=== PATIENT | female | born 1985 | race Caucasian/White ===

== ENCOUNTER 2018-04-05 18:00 | Inpatient (IN) | payer OTHER, SELFPAY ==
[2018-04-05 18:16] VITALS: BMI 25.7
[2018-04-05 18:52] LABS: Hematocrit 42.5 % (37-47); Mean Corp Hgb Conc 35.3 g/gl (32-36); Mean Corpuscular Hgb 32.4 pg (27.0-32.0); Mean Corpuscular Volume 91.8 fL (81-99); Mean Platelet Vol. 10.6 fl (6.2-12.0); Platelet Count 296 K/mm3 (150-450); RBC Distribution Width CV 12.4 % (11.6-14.6); Red Blood Count 4.63 M/mm3 (4.2-5.4)
[2018-04-05 18:54] LABS: Scan Indicated on CBC? Y/N NO
[2018-04-05] MEDS: Nalbuphine 10 MG/ML Ampul IV ×3 (18:58→22:33)
[2018-04-05] MEDS: Lactated Ringers 1,000 ML 50 ML IV ×2 (18:59→22:57)
[2018-04-05] MEDS: Ondansetron 4 MG/2 ML Vial IV (19:29)
--- NOTE | 2018-04-05 21:11 | PCM.HP.OB ---
History Date of Admission: 04/05/18 Final LILI: 04/09/18 Gestational age: 39 Weeks and 4 Days History of this : This is a 32 year-old, G [], P [], at 39 weeks gestational age. 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 History of endoscopy Z98.890 Surgical History: Surgical History (Last Updated 04/05/18 @ 22:02 by Teetee Edmonds) H/O sinus surgery Z98.890 Allergies itraconazole Allergy (Verified 04/05/18 18:24) Swelling levofloxacin Allergy (Verified 04/05/18 18:25) Swelling Itching Sulfa (Sulfonamide Antibiotics) Allergy (Verified 04/05/18 18:25) Rash Home Medications: Home Medications Albuterol Inhaler [Ventolin Hfa (SP)] 1 - 2 puff INHALATION Q4H PRN PRN 04/05/18 Budesonide Aerosol [Pulmicort Aerosol] 0.5 mg INHALATION DAILY 04/05/18 Cholecalciferol (VIT D3) [Vitamin D] 1,000 unit PO DAILY 04/05/18 [place]-3 Fatty Acids [Fish Oil] 500 mg PO 04/05/18 Vits [Prenatabs FA] 1 tablet PO DAILY 04/05/18 Wellbutrin SR (150mg tablets) 300 mg PO QODAY 04/05/18 Smoking Status: Never smoker Heart Tracin with mod variability, accels TOCO Analysis: Q 2-4 minutes History Past Pregnancies: Past Pregnancies Delivery Date Name GA/Weeks Outcome Route Weight Gender Labor Length Anesthesia Delivery Location Provider FOB Labs: See [facility] H&P Physical Exam General: Alert, Oriented x3 Abdomen: Soft, Non Tender, Non-Distended, Gravid Cervix Dilation (cm): 5.5 Station: 0 Effacement (%): 80 Assessment/Plan This is a 32 year-old female @ 39&3 weeks gestational age. Admit to L&D Pain - s/p IV nubain, desires NCB GBS negative Churg-Gurdeep & asthma - anesthesia aware & have discussed patient with EFW less than 4500g, patient with adequate pelvis Will monitor closely during labor & in PP period
[2018-04-05 22:26] LABS: Fibrinogen 540 mg/dl (203-444); International Normalized Ratio 0.9; Partial Thromboplast Time 25.1 Seconds (24.1-36.2); Prothrombin Time (Protime)PT. 12.2 SECONDS (11.7-14.9)
[2018-04-05 22:29] LABS: ALB/GLOB Ratio 0.8 RATIO (0.9-2.4); AST(SGOT) 17 U/L (15-37); Alanine Aminotransfer ALT/SGPT 24 U/L (13-56); Albumin, Serum 2.9 g/dL (3.2-5.0); Alkaline Phosphatase 323 U/L (45-117); BUN 6 mg/dL (7-18); BUN/Creat Ratio 10.9 RATIO (10-20); Calcium,Total 8.9 mg/dL (8.5-10.1); Chloride 107 mmol/L (98-107); Creatinine, Serum 0.55 mg/dL (0.55-1.02); EST Glomerular Filtration Rate 136 mL/min (>60); Est Glom Filt Rate - Afr Amer 165 mL/min (>60); Estimated Creatinine Clearance 132.14 ml/min; Globulin 3.8 g/dL (2.2-4.2); Glucose 108 mg/dL (74-106); Potassium 3.9 mmol/L (3.5-5.1); Protein, Total 6.7 g/dL (6.4-8.2); Sodium Level 138 mmol/L (136-145)
[2018-04-05 22:30] LABS: Anion Gap 11 (5-15)
[2018-04-05] MEDS: Mag Hydrox/Al Hydrox/Simeth 30 ML UDC PO (22:32)
[2018-04-05] MEDS: proMETHazine 25 MG/ML Syringe IV (22:32)
[2018-04-06] VITALS (7 sets, daily range): BP systolic 105–124; BP diastolic 62–79; PULSE 64–90; RESP 16; TEMP 36–37.2; O2SAT 97–99
[2018-04-06] MEDS: Oxytocin 30 units/NS 500 ml 30 UNITS/500 ML IV.SOLN 334 UNITS IV (00:43)
[2018-04-06] MEDS: Acetaminophen 500 MG Tablet 1000 MG PO ×3 (01:10→19:55)
[2018-04-06] MEDS: oxyCODONE 5 MG Tablet PO ×5 (01:10→21:22)
[2018-04-06] MEDS: Oxytocin 30 units/NS 500 ml 30 UNITS/500 ML IV.SOLN 167 UNITS IV (01:13)
--- NOTE | 2018-04-06 01:26 | PCM.OB.VAG ---
Vaginal Delivery Maternal Presentation: Active Labor Amniotic Membrane Rupture Type: Artificial Amniotic Fluid Description: Clear Final LILI: 04/09/18 Gestational age: 39 Weeks and 4 Days Date of Procedure: 04/06/18 Pre-Operative Diagnosis: Labor Post-Operative Diagnosis: Labor Surgery/ Procedure Performed: Spontaneous Vaginal Delivery Type of Anesthesia: Epidural Description of Procedure: Patient prepped & draped when c/c/+3. She pushed to delivered head. Shoulders & body easily followed. placed on maternal abdomen where 3VC clamped & cut in delayed fashion. Placenta delivered with gentle traction. Good uterine tone obtained. Presentation: DOMINIC Placental Delivery Description: Expressed Placenta Disposition: [facility] Cord Vessel Description: 3 Vessels Cord Entanglement: Around neck x 1, loose Estimated Blood Loss: 400ml Infant A gender: Male (1 minute): 8 (5 minute): 9 Episiotomy Description: None Laceration: 2nd degree - perineal - repaired with 3-0 vicryl Medications given after delivery: IV Pitocin Complications: None
--- NOTE | 2018-04-06 08:22 | PCM.PN.OB ---
Subjective: She has some perineal pain & cramping. Denies CP/SOB. - Physical Exam General: Alert, Oriented x3 Abdomen: Soft, Non Tender, Non-Distended - ff mid & below umb Extremities: No Calf Tenderness Weight: 154 lb 15.759 oz Body Mass Index (BMI) 25.7 Intake and Output for Last 24 Hours 04/04/18 04/05/18 04/06/18 23:59 23:59 23:59 Intake Total 545 / 545 Balance 545 / 545 Laboratory Tests Past 24 Hrs 04/05/18 04/05/18 04/05/18 18:25 18:25 18:25 WBC 15.0 H RBC 4.63 Hgb 15.0 Hct 42.5 MCV 91.8 MCH 32.4 H MCHC 35.3 RDW 12.4 RDW Differential 41.0 Plt Count 296 MPV 10.6 PT INR APTT Fibrinogen Sodium Potassium Chloride Carbon Dioxide Anion Gap BUN Creatinine Estim Creat Clear Calc Est GFR (MDRD) Af Amer Est GFR (MDRD) Non-Af BUN/Creatinine Ratio Glucose Calcium Total Bilirubin AST ALT Alkaline Phosphatase Total Protein Albumin Globulin Albumin/Globulin Ratio Blood Type O POSITIVE Antibody Screen NEGATIVE Crossmatch See Detail 04/05/18 04/05/18 21:56 21:56 WBC RBC Hgb Hct MCV MCH MCHC RDW RDW Differential Plt Count MPV PT 12.2 INR 0.9 APTT 25.1 Fibrinogen 540 H Sodium 138 Potassium 3.9 Chloride 107 Carbon Dioxide 20.0 L Anion Gap 11 BUN 6 L Creatinine 0.55 Estim Creat Clear Calc 132.14 Est GFR (MDRD) Af Amer 165 Est GFR (MDRD) Non-Af 136 BUN/Creatinine Ratio 10.9 Glucose 108 H Calcium 8.9 Total Bilirubin 0.40 AST 17 ALT 24 Alkaline Phosphatase 323 H Total Protein 6.7 Albumin 2.9 L Globulin 3.8 Albumin/Globulin Ratio 0.8 L Blood Type Antibody Screen Crossmatch Medical Necessity - Tobacco Use Smoking Status: Never smoker Assessment/Plan PPD#0 Churg-santosh & asthma - continue close PP observation, vital signs Q2 hours today Pain - tylenol & oxycodone PRN Encouraged
[2018-04-06] MEDS: Senna/Docusate Sodium 1 Tablet PO (08:32)
[2018-04-06] MEDS: 0.9% Saline Lock 10 ML Syringe IV (19:03)
[2018-04-07] VITALS (7 sets, daily range): BP systolic 88–130; BP diastolic 55–78; PULSE 63–87; RESP 14–18; TEMP 36.2–36.8; O2SAT 97–100
[2018-04-07] MEDS: oxyCODONE 5 MG Tablet PO ×5 (02:38→21:50)
[2018-04-07] MEDS: Acetaminophen 500 MG Tablet 1000 MG PO (06:09)
--- NOTE | 2018-04-07 08:04 | PCM.PN.OB ---
Subjective: pt seen at bedside doing well. pt denies CP, SOB, dizziness. no difficulty breathing. pt reports mild lochia. breast feeding well. pt reports +voiding w/o difficulty. no other concerns at this time. - Physical Exam General: Alert, Oriented x3 Abdomen: Soft, Non Tender, Non-Distended, - - fundus firm Extremities: No Calf Tenderness Vital Signs Temp Pulse Resp BP Pulse Ox 98.3 F 70 18 130/59 H 97 04/07/18 06:00 04/07/18 06:00 04/07/18 06:00 04/07/18 06:00 04/07/18 06:00 Oxygen Delivery Method Room Air Weight: 70.3 kg Body Mass Index (BMI) 25.7 Intake and Output for Last 24 Hours 04/05/18 04/06/18 04/07/18 23:59 23:59 23:59 Intake Total 545 / 545 Balance 545 / 545 Medical Necessity - Tobacco Use Smoking Status: Never smoker Assessment/Plan PPD#1, doing well routine care pain mgmt will monitor until PPD#2 - then if continues to be stable will dc home Routine VS- dc pulse ox at night.
--- NOTE | 2018-04-07 08:07 | DCINST_ITS ---
Discharge Diet: No Restrictions Discharge Activity: Return to Normal Activity, May not drive while taking narcotic pain medications., May Shower May resume sexual activity in: 4-6 weeks Additional Activity Instructions:: Nothing in the vagina for 4-6 weeks. You may return to work/school in 6 weeks. Call your doctor if your incision/area has: Continuous Slow Oozing, Sudden Increased Bleeding, Increased Pain/ Swelling, Increased Redness, Foul Smelling Discharge Additional Instructions: If you experience any of the following, contact your healthcare provider. * Bleeding that soaks a pad every hour for 2 hours * Fever 100.4 or higher * Unrelieved incision or abdominal pain * Swelling, redness, discharge or bleeding from your incision or episiotomy site * Your incision begins to separate * Problems urinating (including inability to urinate or burning while urinating). * Visual changes * Severe headache * Flu-like symptoms * Pain or redness in one of both of your breasts * Pain, warmth, tenderness or swelling in your legs, especially the calf area * Frequent nausea and vomiting * Symptoms of depression or anxiety If you experience any of the following, call 911 or go to the nearest Emergency Room. * Chest pain * Problems breathing * Seizure activity * Partial or complete paralysis of a body part, slurred speech, weakness or drooping of the face, or a sudden inability to walk or hold your balance Allergies/Adverse Reactions: Allergies itraconazole Allergy (Verified 04/05/18 18:24) Swelling levofloxacin Allergy (Verified 04/05/18 18:25) Swelling Itching Sulfa (Sulfonamide Antibiotics) Allergy (Verified 04/05/18 18:25) Rash Medications to take at Discharge Albuterol Inhaler [Ventolin Hfa] 1 - 2 puff INHALATION Q4H PRN PRN 04/05/18 Budesonide Aerosol [Pulmicort Respules] 0.5 mg INHALATION DAILY 04/05/18 Cholecalciferol (VIT D3) [Vitamin D3] 1,000 unit PO DAILY 04/05/18 [place]-3 Fatty Acids [Fish Oil] 500 mg PO 04/05/18 Vits [Prenatabs FA ] 1 tablet PO DAILY 04/05/18 Acetaminophen [Tylenol Extra Strength] 500 mg PO Q4H PRN PRN #30 tablet 04/06/18 Dextran 70/He-Cell [Tears Naturale, Artificial Tears] 2 drop EACH EYE Q1H PRN PRN bottle 04/06/18 Oxycodone [Oxyir] 5 mg PO Q4H PRN PRN 5 Days #10 tablet 04/06/18 Senna/Docusate Sodium [Senokot-S] 1 - 2 tablet PO DAILY PRN PRN #30 tablet 04/06/18 buPROPion XL [Wellbutrin Xl] 300 mg PO QODAY tablet.xl 04/06/18 The following prescriptions were given: Acetaminophen [Tylenol Extra Strength] 500 mg PO Q4H PRN PRN #30 tablet PRN Reason: Pain Oxycodone [Oxyir] 5 mg PO Q4H PRN PRN 5 Days #10 tablet PRN Reason: Mod-Severe Pain (4-01/31) Senna/Docusate Sodium [Senokot-S] 1 - 2 tablet PO DAILY PRN PRN #30 tablet PRN Reason: Constipation When: Call to make an appointment with your doctor in 6 weeks. If you had elevated Blood Pressure or 4th degree laceration you will need to be seen in 2 weeks. Primary Care Physician: Ash Garrison DO [Primary Care Provider] - Test Results: Test results from this visit will be discussed in further detail at your follow- up appointment, if applicable.
[2018-04-07] MEDS: buPROPion (XL) 300 MG TABLET.XL PO (12:22)
[2018-04-08 02:05] VITALS: BP 104/57; PULSE 75; RESP 16; TEMP 36.8; O2SAT 98
[2018-04-08] MEDS: Acetaminophen 500 MG Tablet 1000 MG PO (08:52)
[2018-04-08 08:55] VITALS: BP 106/70; PULSE 82; RESP 12; TEMP 36.6; O2SAT 97
--- NOTE | 2018-04-08 09:19 | PCM.PN.OB ---
Subjective: pt seen at bedside, doing well. pt denies CP, SOB, dizziness. pt reports some vaginal pressure. Voiding w/o difficulty. lochia mild. breast feeding. - Physical Exam General: Alert, Oriented x3 Abdomen: Soft, Non Tender, Non-Distended, - - fundus firm Extremities: No Calf Tenderness Comment: perineum evalutated. sutures intact. No active bleeding- minimal swelling. Vital Signs Temp Pulse Resp BP Pulse Ox 98 F 82 12 106/70 97 04/08/18 08:55 04/08/18 08:55 04/08/18 08:55 04/08/18 08:55 04/08/18 08:55 Oxygen Delivery Method Room Air Weight: 70.3 kg Body Mass Index (BMI) 25.7 Intake and Output for Last 24 Hours 04/06/18 04/07/18 04/08/18 23:59 23:59 23:59 Intake Total 545 / 545 Balance 545 / 545 Medical Necessity - Tobacco Use Smoking Status: Never smoker Assessment/Plan PPD#2,doing well routine care pain mgmt dc home
[2018-04-08] MEDS: Senna/Docusate Sodium 1 Tablet PO (10:49)
[2018-04-08] MEDS: oxyCODONE 5 MG Tablet PO (10:50)
[2018-04-08] MEDS: buPROPion (XL) 300 MG TABLET.XL PO ×2 (10:50)
--- OUTSIDE RECORDS SUMMARY | 2018-05-22 14:51 | XMS RPT_ITS ---
:1985 Author Organization OHIP Care Team Providers Name Role Phone OMAR OROZCOE, PATRICIA Referring Unavailable RANDALL LOMELI (CNM) Attending Unavailable PEGGY MORRELL (SHIP ENGINEER) Attending Unavailable SHWETA GUERRA (CNM) Attending Unavailable LILIANA VINCENT Attending Unavailable RANDALL LOMELI (CNM) Attending Unavailable MAYRA ALCANTARA Attending Unavailable ASH GARRISON Attending Unavailable LILIANA VINCENT Attending Unavailable ELIDA DING Attending Unavailable MERLYN VINCENTA Referring Unavailable DOMINGUEZ FORTE, PATRICIA Referring Unavailable LILIANA VINCENT Attending Unavailable ILANA VU Attending Unavailable LILIANA VINCENT Attending Unavailable RANDALL LOMELI (CNM) Referring Unavailable RANDALL LOMELI (CNM) Attending Unavailable SHWETA GUERRA (CNM) Attending Unavailable DOMINGUEZ FORTE, PATRICIA Referring Unavailable MAYRA ALCANTARA Attending Unavailable RANDALL LOMELI (CNM) Referring Unavailable NELUKAS OCONNELLRE Attending Unavailable RANDALL LOMELI (CNM) Referring Unavailable ILANA VU Attending Unavailable ILANA VU Referring Unavailable DOMINGUEZ FORTE, PATRICIA Referring Unavailable SHWETA GUERRA (CNM) Attending Unavailable DOMINGUEZ FORTE, PATRICIA Referring Unavailable RANDALL LOMELI (CNM) Attending Unavailable YOVANNY ESCAMILLA MAYRA Referring Unavailable SYLVAIN PASTRANA Attending Unavailable YOVANNY ESCAMILLA MAYRA Referring Unavailable DOMINGUEZ FORTE, PATRICIA Referring Unavailable LUKAS ALCANTARARE Attending Unavailable MAYRA ALCANTARA Attending Unavailable SRIKANTH, LANDEN L Referring Unavailable ILANA VU H Attending Unavailable ANGE VUN H Referring Unavailable SRIKANTH, LANDEN L Referring Unavailable DOMINGUEZ FORTE, PATRICIA Referring Unavailable SRIKANTH, LANDEN L Referring Unavailable SRIKANTH, LANDEN L Referring Unavailable SRIKANTH, LANDEN L Referring Unavailable DOMINGUEZ FORTE, PATRICIA Referring Unavailable DOMINGUEZ PAME, PATRICIA Attending Unavailable Ash Garrison Primary Care Unavailable Nirmal Lopez Admitting Unavailable Nirmal Lopez Attending Unavailable Nirmal Lopez Referring Unavailable PROBLEMS PROBLEMS DATE TYPE CONDITION / CODE ATTENDING STATUS SOURCE 04/10/2018 Active Unknown / PEGGY MORRELL Active [facility] UNK(Unknown) (SHIP ENGINEER) [facility] [place] Repository 04/09/2018 Unknown O90.89 - Other Nirmal Lopez Active [place] complications of Community the puerperium, not Hospital elsewhere Repository classified / O90.89(ICD-10) 02/10/2014 Active 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 [facility] [place] (churg-santosh) / Repository M30.1(ICD-10) 02/22/2018 Active Encounter for NA Active [facility] examination for [facility] normal comparison Repository and control in clinical research program / Z00.6(ICD-10) 01/15/2018 Active 28 weeks gestation NA Active [facility] of / [place] Z3A.28(ICD-10) Repository 10/23/2017 Active Encounter for NA Active [facility] screening [facility] [place] for nuchal Repository translucency / Z36.82(ICD-10) 09/25/2017 Active Encounter for NA Active [facility] supervision of [facility] [place] other normal Repository , first trimester / Z34.81(ICD-10) 09/25/2017 Active 12 weeks gestation NA Active [facility] of / [place] Z3A.12(ICD-10) Repository 09/25/2017 Active Encounter for NA Active [facility] [place] screening, Repository unspecified / Z36.9(ICD-10) 07/29/2017 Active Supervision of Active [facility] with [facility] [place] other poor Repository reproductive or obstetric history, first trimester / O09.291(ICD-10) 07/26/2017 Active Supervision of high NA Active [facility] risk , [facility] [place] unspecified, first Repository trimester / O09.91(ICD-10) 06/29/2017 Active Threatened NA Active [facility] / O20.0(ICD-10) [facility] Repository PROCEDURES PROCEDURES No Procedure Records FoundRESULTS RESULTS PROGRESS Observed: 05/01/2018 Status: COMPLETED Source: [place] 3:38 PM [facility] [place] REPOSITORY HNO ID: [id number] Author: Randall Lomeli Service: (none) Author Type: Cloth Winder Type: Progress Notes Filed: 05/01/2018 6:22 PM Note Text: Denis Quan is a 32 year old female who presents for problem visit for evaluation of bilateral breast pain for 4 days. HPI: Patient presents with and 3.5 week old son today. Reports some worsening nipple pain with latch. Patient reports that baby is a slow feeder and has been cluster feeding on and off over the last week. Initial pain with latch, baby gums nipples a lot and comfort sucks. Nipples unusually pink and she reports she has been battling with pain since end of last week. No fevers. No erythema of breast noted, breasts also are not warm to touch. No abnormal nipple discharge, or bleeding from nipples. Cracks on nipples noted last week,but have cleared up overall. Had clogged dutct on Rt. Breast but this has since resolved since yesterday. Started some pumping of breastmilk a few days ago, to get a break. Did a trial of breast sutherland - minimal improvement on nipple pain. Using Lanolin; was prescribed APNO but hasn't used very much since baby is at the breast constantly. They also recently introduced a pacifier to help soothe baby's comfort sucking. Using DuoGels in between feedings and Haka pump. Patient does report some pain with letdown, reports sensitivity with change in temperature. No s/s of thrush noted in ; no recent diaper rash noted. PAST MEDICAL HISTORY Diagnosis Date - Asthma - Churg-Santosh syndrome (HCC) 2005 - Dysmenorrhea primary ocp helps - fracture 5 years old right arm - HSDD - Hypercholesterolemia 10/17/2012 - Other and unspecified hyperlipidemia LDL 138 - Personal history of unspecified urinary disorder history of frequent UTI, last one 2011 - Pulmonary eosinophilia (HCC) - recurrent UTI no issue since 2011 - Unspecified asthma(493.90) - Venereal warts 2007 - Vitamin D deficiency 2010 29 - weight gain PAST SURGICAL HISTORY Procedure Laterality Date - ENDOSCOPY PROC 08/03/2016 - SINUS SURGERY PROC UNLISTED 2006 FAMILY HISTORY Problem Relation Age of Onset - Thyroid Mother Hyperthyroidism - other (hypercholesterolemia) Father - Diabetes Maternal Grandfather - Ischemic Heart Disease Maternal Grandfather - Hypertension Maternal Grandfather - other (Tuberculosis) Maternal Grandfather - Hypertension Brother - Hyperlipidemia Brother - Hypertension Brother - Diabetes Maternal Grandmother - other (Dementia) Paternal Grandmother - Aneurysm Paternal Grandfather brain Social History Marital status: Unknown Spouse name: Jamie Years of education: 18 Number of children: 0 Occupational History Occupation Employer Comment HELP DESK MANAGER [employer] Social History Main Topics Smoking status: Never Smoker Smokeless tobacco: Never Used Alcohol use: Yes 4.5 oz/week Glasses of Wine (5oz): 3 per week Comment: not while Drug use: No Comment: . Sexual activity: Yes Partners with: Male control/protection: Inserts Comment: nuvaring Other Topics Concern No BLOOD TRANSFUSIONS No OCCUPATIONAL EXPOSURE Yes Comment:Chemical exposure ([employer]) summer - weed killer Social History Narrative , no children Current Outpatient Prescriptions: mupirocin (ALBERTA RAYA) Apply 1 Each to affected area as directed. buPROPion XL (WELLBUTRIN XL) 300 mg 24 hr tablet Take 1 tablet by mouth once daily. fluticasone-salmeterol HFA (ADVAIR) 230-21 mcg/actuation inhaler Inhale 2 Puffs as instructed twice daily. budesonide (PULMICORT) 0.5 mg/2 mL nebulizer solution use 2 mL twice daily. Use 1ml in each nostril twice daily as directed. Eezpljbf-Zg-Lku-Fe-FA ( VITAMIN) tab Take 1 tablet by mouth. lactobacillus combo no.6 (PROBIOTIC COMPLEX ORAL) Take by mouth. albuterol HFA (PROAIR HFA) 90 mcg/actuation inhaler Inhale 2 Puffs as instructed every 6 hours as needed for Wheezing/Shortness of Breath. [place]-3 Fatty Acids-Vitamin E (FISH OIL) 1,000 mg cap Take 1 capsule by mouth twice daily. B-COMPLEX WITH VITAMIN C TAB Take one(1) tablet daily. No current facility-administered medications for this visit. Allergies As of Date: 05/01/2018 Allergen Noted Reaction CAT HAIR EXTRACT 12/03/2004 DUST MITES 12/03/2004 ITRACONAZOLE 12/03/2004 Itching LEVOFLOXACIN 12/03/2004 Rash MOLD 12/03/2004 SULFA (SULFONAMIDE ANTIBIOTICS) 09/28/2005 Rash Fully Assessed 04/10/2018 REVIEW OF SYSTEMS Abdomen: No bloating, early satiety, indigestion, or increased flatulence. No abdominal pain, nausea, vomiting, diarrhea, or constipation. Bladder: No dysuria, gross hematuria, urinary frequency, urinary urgency, or incontinence. Breast: No breast lumps, nipple d/c, overlying skin changes, redness or skin retraction and SEE HPI. Expanded ROS: N/A Allergies and current medication updated:Yes EXAM: BP 104/78 Wt 140 lb 12.8 oz (63.9kg) GENERAL: pleasant, female in no apparent distress HEENT: Normocephalic, atraumatic, mucus membranes moist and no lesions NECK: Supple, full range of motion, no adenopathy and thyroid normal DERMATOLOGY: Normal, without lesions, non-icteric and non-hirsute BREAST: soft, non-tender, symmetric, no dominant mass, normal nipple-areolar complex, no lymphadenopathy and no nipple discharge CHEST: Normal inspiratory effort ABDOMEN: soft, non-tender and no masses PELVIC: deferred BIMANUAL: deferred NEURO: alert and oriented x3,exam grossly non-focal EXTREMITIES: normal ASSESSMENT AND PLAN: Encounter Diagnosis ICD-10-CM 1. nipple pain O92.29 2. problem Z91.89 1) Encourage use APNO - discussed advantages of APNO over Lanolin cream 2) Warning signs for mastitis, ductal yeast and clogged ducts discussed 3) Reassurance provided regarding ensuring deep latch, not allowing for prolonged nursing session beyond 30 minutes and to use pacifier for comfort, non-nutritive sucking as baby's elimination patterns are normal and is gaining weight normally. 4) Consider evaluation for Raynaud's phenomenon of nipple if pain persists - patient to keep a journal regarding exacerbating and alleviating factors. Randall Lomeli APRN.EVA CNOV Observed: 05/01/2018 Status: COMPLETED Source: [place] 3:30 PM [facility] REPOSITORY Office Visit (WOOB) DENIS QUAN ([id number]) 1985 F Date Time Provider Department 05/01/18 3:30 PM RANDALL LOMELI ([facility]) [facility]OO[facility] During your visit today, we recorded the following information about you: Blood pressure Weight 104/78 63.9 kg Randall Lomeli APRN.CNM 05/01/2018 6:22 PM Signed Denis Quan is a 32 year old female who presents for problem visit for evaluation of bilateral breast pain for 4 days. HPI: Patient presents with and 3.5 week old son today. Reports some worsening nipple pain with latch. Patient reports that baby is a slow feeder and has been cluster feeding on and off over the last week. Initial pain with latch, baby gums nipples a lot and comfort sucks. Nipples unusually pink and she reports she has been battling with pain since end of last week. No fevers. No erythema of breast noted, breasts also are not warm to touch. No abnormal nipple discharge, or bleeding from nipples. Cracks on nipples noted last week,but have cleared up overall. Had clogged dutct on Rt. Breast but this has since resolved since yesterday. Started some pumping of breastmilk a few days ago, to get a break. Did a trial of breast sutherland - minimal improvement on nipple pain. Using Lanolin; was prescribed APNO but hasn't used very much since baby is at the breast constantly. They also recently introduced a pacifier to help soothe baby's comfort sucking. Using DuoGels in between feedings and Haka pump. Patient does report some pain with letdown, reports sensitivity with change in temperature. No s/s of thrush noted in infant; no recent diaper rash noted. PAST MEDICAL HISTORY Diagnosis Date - Asthma - Churg-Santosh syndrome (HCC) 2005 - Dysmenorrhea primary ocp helps - fracture 5 years old right arm - HSDD - Hypercholesterolemia 10/17/2012 - Other and unspecified hyperlipidemia LDL 138 - Personal history of unspecified urinary disorder history of frequent UTI, last one 2011 - Pulmonary eosinophilia (HCC) - recurrent UTI no issue since 2011 - Unspecified asthma(493.90) - Venereal warts 2007 - Vitamin D deficiency 2010 29 - weight gain PAST SURGICAL HISTORY Procedure Laterality Date - ENDOSCOPY PROC 08/03/2016 - SINUS SURGERY PROC UNLISTED 2006 FAMILY HISTORY Problem Relation Age of Onset - Thyroid Mother Hyperthyroidism - other (hypercholesterolemia) Father - Diabetes Maternal Grandfather - Ischemic Heart Disease Maternal Grandfather - Hypertension Maternal Grandfather - other (Tuberculosis) Maternal Grandfather - Hypertension Brother - Hyperlipidemia Brother - Hypertension Brother - Diabetes Maternal Grandmother - other (Dementia) Paternal Grandmother - Aneurysm Paternal Grandfather brain Social History Marital status: Unknown Spouse name: Jamie Years of education: 18 Number of children: 0 Occupational History Occupation Employer Comment HELP DESK MANAGER [employer] Social History Main Topics Smoking status: Never Smoker Smokeless tobacco: Never Used Alcohol use: Yes 4.5 oz/week Glasses of Wine (5oz): 3 per week Comment: not while Drug use: No Comment: . Sexual activity: Yes Partners with: Male control/protection: Inserts Comment: nuvaring Other Topics Concern No BLOOD TRANSFUSIONS No OCCUPATIONAL EXPOSURE Yes Comment:Chemical exposure ([employer]) summer - weed killer Social History Narrative , no children Current Outpatient Prescriptions: mupirocin (ALBERTA RAYA) Apply 1 Each to affected area as directed. buPROPion XL (WELLBUTRIN XL) 300 mg 24 hr tablet Take 1 tablet by mouth once daily. fluticasone-salmeterol HFA (ADVAIR) 230-21 mcg/actuation inhaler Inhale 2 Puffs as instructed twice daily. budesonide (PULMICORT) 0.5 mg/2 mL nebulizer solution use 2 mL twice daily. Use 1ml in each nostril twice daily as directed. Uzivsgeh-Yt-Vwr-Fe-FA ( VITAMIN) tab Take 1 tablet by mouth. lactobacillus combo no.6 (PROBIOTIC COMPLEX ORAL) Take by mouth. albuterol HFA (PROAIR HFA) 90 mcg/actuation inhaler Inhale 2 Puffs as instructed every 6 hours as needed for Wheezing/Shortness of Breath. [place]-3 Fatty Acids-Vitamin E (FISH OIL) 1,000 mg cap Take 1 capsule by mouth twice daily. B-COMPLEX WITH VITAMIN C TAB Take one(1) tablet daily. No current facility-administered medications for this visit. Allergies As of Date: 05/01/2018 Allergen Noted Reaction CAT HAIR EXTRACT 12/03/2004 DUST MITES 12/03/2004 ITRACONAZOLE 12/03/2004 Itching LEVOFLOXACIN 12/03/2004 Rash MOLD 12/03/2004 SULFA (SULFONAMIDE ANTIBIOTICS) 09/28/2005 Rash Fully Assessed 04/10/2018 REVIEW OF SYSTEMS Abdomen: No bloating, early satiety, indigestion, or increased flatulence. No abdominal pain, nausea, vomiting, diarrhea, or constipation. Bladder: No dysuria, gross hematuria, urinary frequency, urinary urgency, or incontinence. Breast: No breast lumps, nipple d/c, overlying skin changes, redness or skin retraction and SEE HPI. Expanded ROS: N/A Allergies and current medication updated:Yes EXAM: BP 104/78 Wt 140 lb 12.8 oz (63.9kg) GENERAL: pleasant, female in no apparent distress HEENT: Normocephalic, atraumatic, mucus membranes moist and no lesions NECK: Supple, full range of motion, no adenopathy and thyroid normal DERMATOLOGY: Normal, without lesions, non-icteric and non-hirsute BREAST: soft, non-tender, symmetric, no dominant mass, normal nipple-areolar complex, no lymphadenopathy and no nipple discharge CHEST: Normal inspiratory effort ABDOMEN: soft, non-tender and no masses PELVIC: deferred BIMANUAL: deferred NEURO: alert and oriented x3,exam grossly non-focal EXTREMITIES: normal ASSESSMENT AND PLAN: Encounter Diagnosis ICD-10-CM 1. nipple pain O92.29 2. problem Z91.89 1) Encourage use APNO - discussed advantages of APNO over Lanolin cream 2) Warning signs for mastitis, ductal yeast and clogged ducts discussed 3) Reassurance provided regarding ensuring deep latch, not allowing for prolonged nursing session beyond 30 minutes and to use pacifier for comfort, non-nutritive sucking as baby's elimination patterns are normal and infant is gaining weight normally. 4) Consider evaluation for Raynaud's phenomenon of nipple if pain persists - patient to keep a journal regarding exacerbating and alleviating factors. GAIL Gallegos APRN.CNM 05/01/2018 4:03 PM Signed [facility] for nipple pain. Referring Provider: SELF [[id number]] Allergies As of Date: 05/01/2018 Noted Allergy Reaction CAT HAIR EXTRACT 12/03/2004 DUST MITES 12/03/2004 ITRACONAZOLE 12/03/2004 9 - Itching LEVOFLOXACIN 12/03/2004 2 - Rash MOLD 12/03/2004 SULFA (SULFONAMIDE ANTIBIOTICS) 09/28/2005 2 - Rash Date Reviewed: 05/01/2018 Reviewed by: Aniyah Yates) Colin - Fully Assessed Reason for Visit: Breast Problem [16] Primary Visit Diagnosis: nipple pain [O92.29] Other Visit Diagnosis: problem [Z91.89] Prescriptions as of 05/01/2018 Sig: ALBERTA RAYA NIPPLE OINTMENT Apply 1 Each to affected area* BUPROPION XL 300 MG 24 HR TAB Take 1 tablet by mouth once d* BUDESONIDE 0.5 MG/2 ML SUSPEN* use 2 mL twice daily. Use 1ml* VITAMIN,CALCIUM,MINE* Take 1 tablet by mouth. PROBIOTIC COMPLEX ORAL Take by mouth. ALBUTEROL SULFATE HFA 90 MCG/* Inhale 2 Puffs as instructed * [place]-3 FATTY ACIDS-VITAMIN E* Take 1 capsule by mouth twice* B-COMPLEX WITH VITAMIN C TABL* Take one(1) tablet daily. FLUTICASONE-SALMETEROL 230 MC* Inhale 2 Puffs as instructed * Problem List As Of Date 05/01/2018 Noted Resolved Asthma [J45.909] More... 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 Sinusitis, chronic [J32.9] INVALID FOR* PEANUT CLEANER STEROIDS [VWO3611] INVALID FOR* Urinary tract infection, site not specified [N3*INVALID FOR*10/31/2012 Churg-Santosh syndrome (HCC) [M30.1] INVALID FOR* More... UTI (lower urinary tract infection) [N39.0] INVALID FOR* Chest pain [R07.9] INVALID FOR*01/20/2014 Palpitations [R00.2] INVALID FOR*06/21/2017 Family history of hyperlipidemia [Z83.438] INVALID FOR*06/21/2017 Hypercholesterolemia [E78.00] INVALID FOR* Headache [R51] INVALID FOR* More... Neutropenic fever [D70.9, R50.81] INVALID FOR* More... Mouth ulcers [K12.1] INVALID FOR*06/21/2017 More... Thrombocytosis [D47.3] INVALID FOR*07/01/2013 More... Nausea [R11.0] INVALID FOR*06/21/2017 More... Oral thrush [B37.0] INVALID FOR* More... MILES (acute kidney injury) [N17.9] INVALID FOR* More... DISPOSITION AND FOLLOW-UP [V999.01] INVALID FOR*06/21/2017 More... Dyspareunia [BAC9130] INVALID FOR*06/21/2017 Vaginismus [N94.2] INVALID FOR* Vitamin D deficiency [E55.9] Other and unspecified hyperlipidemia [E78.5] HSDD [F52.0] Dysmenorrhea [N94.6] 06/21/2017 More... Muscle spasm [M62.838] INVALID FOR*06/21/2017 Eosinophilia [D72.1] INVALID FOR* Epigastric pain [R10.13] INVALID FOR*06/21/2017 Abnormal weight loss [R63.4] INVALID FOR* Poor appetite [R63.0] INVALID FOR* History of depression [Z86.59] INVALID FOR* More... History of abdominal pain [Z87.898] INVALID FOR* More... History of recurrent UTI (urinary tract infecti*INVALID FOR* More... Other instructions from your clinician: [facility] for nipple pain. Disposition: Return if symptoms worsen or fail to improve. Follow-up and Disposition History Recorded Encounter Status:Closed by RANDALL LOMELI CNM on 05/01/18 PROGRESS Observed: 04/10/2018 Status: COMPLETED Source: [place] 1:34 PM [facility] [place] REPOSITORY HNO ID: [id number] Author: Peggy Maier) Francisca Service: (none) Author Type: Nurse Practitioner Type: Progress Notes Filed: 04/10/2018 2:04 PM Note Text: SUBJECTIVE: 32 year old female presents for 1 week exam. Outcome: . Date delivered: 04/06/18. Delivering M.D.: Nirmal Lopez MD. Delivered in what hospital? [facility] Lochia: Rubra, Normal depression/mood: mild Breast/bottle: Breast feeding. If , do you have any drainage or redness at incision site? N/A Do you have a fever? No Additional Issues: none Pam Healy LPN OBJECTIVE: Abdomen: soft, non-tender, no masses, no hepatosplenomegaly and no lymphadenopathy Incision: None PLAN: RTO for 6 week check, Prescription given for nipple cream Taking Wellbutrin Has appt on I have reviewed and updated past medical and surgical history, medications and allergies. Peggy Morrell, CONSTRUCTION SAFETY CONSULTANT.SHIP ENGINEER DISCHARGE INSTRUCTION Observed: 04/07/2018 Status: F Source: [place] 8:07 AM [facility] REPOSITORY [facility] Medical Records Department [address] [place] [address] Instructions for Home/Discharge Instructions 04/07/18 0807 MR#: [id number] Acct: [id number] Name: DENIS QUAN Rep #: [id number] : 1985 32 From: Mayra Escamilla MD PCP: Ash Rodriguez DO Status: ADM IN Discharge Diet: No Restrictions Discharge Activity: Return to Normal Activity, May not drive while taking narcotic pain medications., May Shower May resume sexual activity in: 4-6 weeks Additional Activity Instructions:: Nothing in the vagina for 4-6 weeks. You may return to work/school in 6 weeks. Call your doctor if your incision/area has: Continuous Slow Oozing, Sudden Increased Bleeding, Increased Pain/ Swelling, Increased Redness, Foul Smelling Discharge Additional Instructions: If you experience any of the following, contact your healthcare provider. * Bleeding that soaks a pad every hour for 2 hours * Fever 100.4 or higher * Unrelieved incision or abdominal pain * Swelling, redness, discharge or bleeding from your incision or episiotomy site * Your incision begins to separate * Problems urinating (including inability to urinate or burning while urinating). * Visual changes * Severe headache * Flu-like symptoms * Pain or redness in one of both of your breasts * Pain, warmth, tenderness or swelling in your legs, especially the calf area * Frequent nausea and vomiting * Symptoms of depression or anxiety If you experience any of the following, call 911 or go to the nearest Emergency Room. * Chest pain * Problems breathing * Seizure activity * Partial or complete paralysis of a body part, slurred speech, weakness or drooping of the face, or a sudden inability to walk or hold your balance Allergies/Adverse Reactions: Allergies itraconazole Allergy (Verified 04/05/18 18:24) Swelling levofloxacin Allergy (Verified 04/05/18 18:25) Swelling Itching Sulfa (Sulfonamide Antibiotics) Allergy (Verified 04/05/18 18:25) Rash Medications to take at Discharge Albuterol Inhaler [Ventolin Hfa] 1 - 2 puff INHALATION Q4H PRN PRN 04/05/18 Budesonide Aerosol [Pulmicort Respules] 0.5 mg INHALATION DAILY 04/05/18 Cholecalciferol (VIT D3) [Vitamin D3] 1,000 unit PO DAILY 04/05/18 [place]-3 Fatty Acids [Fish Oil] 500 mg PO 04/05/18 Vits [Prenatabs FA ] 1 tablet PO DAILY 04/05/18 Acetaminophen [Tylenol Extra Strength] 500 mg PO Q4H PRN PRN #30 tablet 04/06/18 Dextran 70/He-Cell [Tears Naturale, Artificial Tears] 2 drop EACH EYE Q1H PRN PRN bottle 04/06/18 Oxycodone [Oxyir] 5 mg PO Q4H PRN PRN 5 Days #10 tablet 04/06/18 Senna/Docusate Sodium [Senokot-S] 1 - 2 tablet PO DAILY PRN PRN #30 tablet 04/06/18 buPROPion XL [Wellbutrin Xl] 300 mg PO QODAY tablet.xl 04/06/18 The following prescriptions were given: Acetaminophen [Tylenol Extra Strength] 500 mg PO Q4H PRN PRN #30 tablet PRN Reason: Pain Oxycodone [Oxyir] 5 mg PO Q4H PRN PRN 5 Days #10 tablet PRN Reason: Mod-Severe Pain (4-10) Senna/Docusate Sodium [Senokot-S] 1 - 2 tablet PO DAILY PRN PRN #30 tablet PRN Reason: Constipation When: Call to make an appointment with your doctor in 6 weeks. If you had elevated Blood Pressure or 4th degree laceration you will need to be seen in 2 weeks. Primary Care Physician: Ash Garrison DO [Primary Care Provider] - Test Results: Test results from this visit will be discussed in further detail at your follow-up appointment, if applicable. 04/07/18 0807 <Electronically signed by Mayra Escamilla MD> Date Mayra Gay MD CC: Ash Rodriguez DO PROGRESS Observed: 04/06/2018 Status: COMPLETED Source: [place] 2:26 PM [facility] [place] [facility] ID: [id number] Author: Pam Healy LPN Service: (none) Author Type: (none) Type: Progress Notes Filed: 04/06/2018 2:27 PM Note Text: Pt delivered via at [facility] on 04/05/[address] Lopez. See OB Outcome note. Pam Healy LPN OPERATIVE REPORT Observed: 04/06/2018 Status: F Source: [place] 1:30 AM [facility] REPOSITORY [facility] Medical Records Department [address] [place] [address] Operative Report 04/06/18 0126 MR#: [id number] Acct: [id number] Name: KADEEMDENIS Deon Rep #: [id number] : 1985 32 From: Nirmal Lopez PCP: Ash Rodriguez DO Status: ADM IN Y Location: [id number] Vaginal Delivery Maternal Presentation: Active Labor Amniotic Membrane Rupture Type: Artificial Amniotic Fluid Description: Clear Final LILI: 04/09/18 Gestational age: 39 Weeks and 4 Days Date of Procedure: 04/06/18 Pre-Operative Diagnosis: Labor Post-Operative Diagnosis: Labor Surgery/ Procedure Performed: Spontaneous Vaginal Delivery Type of Anesthesia: Epidural Description of Procedure: Patient prepped AND draped when c/c/+3. She pushed to delivered head. Shoulders AND body easily followed. Infant placed on maternal abdomen where 3VC clamped AND cut in delayed fashion. Placenta delivered with gentle traction. Good uterine tone obtained. Presentation: DOMINIC Placental Delivery Description: Expressed Placenta Disposition: [facility] Cord Vessel Description: 3 Vessels Cord Entanglement: Around neck x 1, loose Estimated Blood Loss: 400ml Infant A gender: Male (1 minute): 8 (5 minute): 9 Episiotomy Description: None Laceration: 2nd degree - perineal - repaired with 3-0 vicryl Medications given after delivery: IV Pitocin Complications: None 04/06/18 0130 <Electronically signed by Nirmal Lopez > Date Nirmal Lopez CC: Ash Rodriguez DO; Nirmal Lopez Signed HISTORY AND PHYSICAL Observed: 04/06/2018 Status: F Source: [place] EXAM 1:25 AM [facility] REPOSITORY [facility] Medical Records Department [address] [place] [address] History and Physical 04/05/182110 MR#: [id number] Acct: [id number] Name: DENIS QUAN Rep #: [id number] : 1985 32 From: Nirmal Lopez PCP: Ash Rodriguez DO Status: ADM IN Location: DJ341-2 History Date of Admission: 04/05/18 Final LILI: 04/09/18 Gestational age: 39 Weeks and 4 Days History of this : This is a 32 year-old, G [], P [], at 39 weeks gestational age. 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 History of endoscopy Z98.890 Surgical History: Surgical History (Last Updated 04/05/18 @ 22:02 by Nirmal Lopez) H/O sinus surgery Z98.890 Allergies itraconazole Allergy (Verified 04/05/18 18:24) Swelling levofloxacin Allergy (Verified 04/05/18 18:25) Swelling Itching Sulfa (Sulfonamide Antibiotics) Allergy (Verified 04/05/18 18:25) Rash Home Medications: Home Medications Albuterol Inhaler [Ventolin Hfa (SP)] 1 - 2 puff INHALATION Q4H PRN PRN 04/05/18 Budesonide Aerosol [Pulmicort Aerosol] 0.5 mg INHALATION DAILY 04/05/18 Cholecalciferol (VIT D3) [Vitamin D] 1,000 unit PO DAILY 04/05/18 [place]-3 Fatty Acids [Fish Oil] 500 mg PO 04/05/18 Vits [Prenatabs FA] 1 tablet PO DAILY 04/05/18 Wellbutrin SR (150mg tablets) 300 mg PO QODAY 04/05/18 Smoking Status: Never smoker Heart Tracin with mod variability, accels TOCO Analysis: Q 2-4 minutes History Past Pregnancies: Past Pregnancies Delivery Name GA/Weeks Outcome Route WeiInfant GeLabor LenAnesthesiDelivery Provider FOB Date t [facility] a Location Labs: See [facility] H AND P Physical Exam General: Alert, Oriented x3 Abdomen: Soft, Non Tender, Non-Distended, Gravid Cervix Dilation (cm): 5.5 Station: 0 Effacement (%): 80 Assessment/Plan This is a 32 year-old female @ 39 AND 3 weeks gestational age. Admit to L AND D Pain - s/p IV nubain, desires NCB GBS negative Churg-Santosh AND asthma - anesthesia aware AND have discussed patient with Dr.DeHorta REILLY less than 4500g, patient with adequate pelvis Will monitor closely during labor AND in PP period 04/06/18 0125 <Electronically signed by Nirmal Lopez > Date Nirmal Lopez Cosigner Signature: Date (if applicable) CC: Ash Rodriguez DO; Nirmal Lopez Signed HOSP Observed: 04/06/2018 Status: COMPLETED Source: [place] 12:00 AM [facility] REPOSITORY Patient Update (WOOB) DENIS QUAN ([id number]) 1985 F Date Time Provider Department 04/06/18 NIRMAL LOPEZ During your visit today, we recorded the following information about you: Pam Healy LPN 04/06/2018 2:27 PM Signed Pt delivered via at [facility] on 04/05/[address] Lopez. See OB Outcome note. Pam Healy LPN Allergies As of Date: 04/06/2018 Noted Allergy Reaction CAT HAIR EXTRACT 12/03/2004 DUST MITES 12/03/2004 ITRACONAZOLE 12/03/2004 9 - Itching LEVOFLOXACIN 12/03/2004 2 - Rash MOLD 12/03/2004 SULFA (SULFONAMIDE ANTIBIOTICS) 09/28/2005 2 - Rash Date Reviewed: 04/02/2018 Reviewed by: [facility] Hospital[facility] Guerra - Fully Assessed Prescriptions as of 04/06/2018 Sig: ALBUTEROL SULFATE HFA 90 MCG/* Inhale 2 Puffs as instructed * B-COMPLEX WITH VITAMIN C TABL* Take one(1) tablet daily. BUDESONIDE 0.5 MG/2 ML SUSPEN* use 2 mL twice daily. Use 1ml* BUPROPION XL 300 MG 24 HR TAB Take 1 tablet by mouth once d* FLUTICASONE-SALMETEROL 230 MC* Inhale 2 Puffs as instructed * PROBIOTIC COMPLEX ORAL Take by mouth. OMEGA-3 FATTY ACIDS-VITAMIN E* Take 1 capsule by mouth twice* VITAMIN,CALCIUM,MINE* Take 1 tablet by mouth. Problem List As Of Date 04/06/2018 Noted Resolved Asthma [J45.909] More... 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 Sinusitis, chronic [J32.9] INVALID FOR* PEANUT CLEANER STEROIDS [AXS8325] INVALID FOR* Urinary tract infection, site not specified [N3*INVALID FOR*10/31/2012 Churg-Santosh syndrome (HCC) [M30.1] INVALID FOR* More... UTI (lower urinary tract infection) [N39.0] INVALID FOR* Chest pain [R07.9] INVALID FOR*01/20/2014 Palpitations [R00.2] INVALID FOR*06/21/2017 Family history of hyperlipidemia [Z83.438] INVALID FOR*06/21/2017 Hypercholesterolemia [E78.00] INVALID FOR* Headache [R51] INVALID FOR* More... Neutropenic fever [D70.9, R50.81] INVALID FOR* More... Mouth ulcers [K12.1] INVALID FOR*06/21/2017 More... Thrombocytosis [D47.3] INVALID FOR*07/01/2013 More... Nausea [R11.0] INVALID FOR*06/21/2017 More... Oral thrush [B37.0] INVALID FOR* More... MILES (acute kidney injury) [N17.9] INVALID FOR* More... DISPOSITION AND FOLLOW-UP [V999.01] INVALID FOR*06/21/2017 More... Dyspareunia [PLD6867] INVALID FOR*06/21/2017 Vaginismus [N94.2] INVALID FOR* Vitamin D deficiency [E55.9] Other and unspecified hyperlipidemia [E78.5] HSDD [F52.0] Dysmenorrhea [N94.6] 06/21/2017 More... Muscle spasm [M62.838] INVALID FOR*06/21/2017 Eosinophilia [D72.1] INVALID FOR* Epigastric pain [R10.13] INVALID FOR*06/21/2017 Abnormal weight loss [R63.4] INVALID FOR* Poor appetite [R63.0] INVALID FOR* History of depression [Z86.59] INVALID FOR* More... History of abdominal pain [Z87.898] INVALID FOR* More... History of recurrent UTI (urinary tract infecti*INVALID FOR* More... Encounter Status:Closed by PAM HEALY LPN on 04/06/18 PROTHROMBIN TIME W/INR Collected: 04/05/2018 Status: F Source: [place] 9:56 PM [facility] REPOSITORY TYPE CODE TESTS RESULT OUT OF RANGE REFERENCE UNITS LAB L300.4150 11.7-14.9 SECONDS Normal PROTIME 12.2 LAB L300.4200 Normal INR 0.9 Performed By: #### L300.3900, L300.4310, L300.4700 #### [facility] [address] [place], [place], [id number] PARTIAL THROMBOPLAST Collected: 04/05/2018 Status: F Source: [place] TIME 9:56 PM [facility] REPOSITORY TYPE CODE TESTS RESULT OUT OF RANGE REFERENCE UNITS LAB L300.4310 24.1-36.2 Seconds Normal PTT 25.1 Performed By: #### L300.3900, L300.4310, L300.4700 #### [facility] [address] [place], [place], [id number] FIBRINOGEN Collected: 04/05/2018 Status: F Source: [place] 9:56 PM [facility] REPOSITORY TYPE CODE TESTS RESULT OUT OF RANGE REFERENCE UNITS LAB L300.4700 203-444 mg/dl High FIB 540 Performed By: #### L300.3900, L300.4310, L300.4700 #### [facility] [address] [place], [place], [id number] COMPREHENSIVE METABOLIC Collected: 04/05/2018 Status: F Source: [place] 9:56 PM [facility] REPOSITORY TYPE CODE TESTS RESULT OUT OF RANGE REFERENCE UNITS LAB L501.0100 74-106 mg/dL High GLU 108 Result Comment: Fasting Glucose result from 100 to 125 mg/dL suggests IMPAIRED HOMEOSTASIS per A.D.A. criteria. Please note revised GLUCOSE reference range effective 2017. LAB L501.1000 7-18 mg/dL Low BUN 6 LAB L501.1100 0.55-1.02 mg/dL Normal CREAT,SERUM 0.55 Result Comment: The validity of the calculated GFR AND GFRAA in patients over 70 years has not been determined. Clinical correlation is essential. LAB L501.1110 >60 mL/min Normal EST GFR 136 Result Comment: Non- GFR Calc LAB L501.1115 >60 mL/min Normal EST GFR - AA 165 Result Comment: GFR Calc LAB L501.1255 ml/min Normal Estimated CRCL 132.14 LAB L501.1300 10-20 RATIO BUN/CRE Normal 10.9 LAB L501.1500 6.4-8. g/dL 2 T PROT Normal 6.7 LAB L501.1800 3.2-5. g/dL Low 0 ALB 2.9 LAB L501.1950 2.2-4. g/dL 2 GLOB Normal 3.8 LAB L501.2000 0.9-2. RATIO Low 4 A/G 0.8 LAB L501.2200 8.5-10 mg/dL .1 CA Normal 8.9 LAB L501.4100 15-37 U/L AST Normal 17 LAB L501.4305 45-117 U/L High ALK P 323 LAB L501.4405 13-56 U/L ALT Normal 24 LAB L501.4600 0.20-1 mg/dL .00 T BILI Normal 0.40 LAB L501.5300 136-14 mmol/L 5 NA Normal 138 LAB L501.5600 3.5-5. mmol/L 1 K Normal 3.9 LAB L501.5900 98-107 mmol/L CL Normal 107 LAB L501.6100 21.0-3 mmol/L Low 2.0 CO2 20.0 LAB L501.6200 5-15 GAP Normal 11 Performed By: #### L500.4050 #### [facility] [place], [address] CBC-COMPLETE BLOOD CNT Collected: 04/05/2018 Status: F Source: [place] NO DIFF 6:25 PM [facility] REPOSITORY TYPE CODE TESTS RESULT OUT OF RANGE REFERENCE UNITS LAB L100.1000 4.4-11.0 K/mm3 High WBC 15.0 LAB L100.1200 4.2-5.4 M/mm3 Normal RBC 4.63 LAB L100.1300 12.0-15.0 g/dl Normal HGB 15.0 LAB L100.1400 37-47 % Normal HCT 42.5 LAB L100.1500 81-99 fL Normal MCV 91.8 LAB L100.1600 27.0-32.0 pg High MCH 32.4 LAB L100.1700 32-36 g/gl Normal MCHC 35.3 LAB L100.1810 11.6-14.6 % Normal RDW CV 12.4 LAB L100.1820 35.1-43.9 fl Normal RDW SD 41.0 LAB L100.1900 150-450 K/mm3 Normal PLT 296 LAB L100.2000 6.2-12.0 fl Normal MPV 10.6 Performed By: #### L100.0500 #### [facility] [address] [place], [place], [address] TYPE AND SCREEN Collected: 04/05/2018 Status: F Source: [place] 6:25 PM [facility] REPOSITORY Order Comment: Reason for Type AND Screen/Red Cells: ROUTINE TYPE CODE TESTS RESULT OUT OF RANGE REFERENCE UNITS LAB B10.0800 O Normal BLOOD TYPE GEL POSITIVE LAB B100.4000 Normal Antibody NEGATIVE Screen Performed By: #### B101.7450 #### [facility] [address], [place], [address] SED RATE WESTERGREN Collected: 04/02/2018 Status: F Source: [place] 9:47 AM [facility] REPOSITORY TYPE CODE TESTS RESULT OUT OF REFERENCE UNITS RANGE LAB WSR 0-20 mm/hr Sed Rate High [place] 27 Performed By: #### WSR, CBCDIF, CMP #### [facility] [address] [place], [place] [address] CBC AND DIFFERENTIAL Collected: 04/02/2018 Status: F Source: [place] 9:47 AM [facility] REPOSITORY TYPE CODE TESTS RESULT OUT OF REFERENCE UNITS RANGE LAB WBC 3.70-11.00 k/uL WBC 9.59 LAB RBC 3.90-5.20 m/uL RBC 4.41 LAB HGB 11.5-15.5 g/dL Hemoglobin 14.5 LAB HCT 36.0-46.0 % Hematocrit 42.8 LAB MCV 80.0-100.0 fL MCV 97.1 LAB MCH 26.0-34.0 pG MCH 32.9 LAB MCHC 30.5-36.0 g/dL MCHC 33.9 LAB RDWCV 11.5-15.0 % RDW-CV 12.6 LAB PLTCT 150-400 k/uL Platelet Count 273 LAB MPV 9.0-12.7 fL MPV 10.9 LAB ANEUT % Neut% 71.4 LAB AANEUT 1.45-7.50 k/uL Abs Neut 6.85 LAB ALYMP % Lymph% 21.7 LAB AALYMP 1.00-4.00 k/uL Abs Lymph 2.08 LAB AMONO % [place]% 4.8 LAB AAMONO <0.87 k/uL Abs [place] 0.46 LAB AEOS % Eosin% 1.6 LAB AAEOS <0.46 k/uL Abs Eosin 0.15 LAB ABASO % Baso% 0.5 LAB AABASO <0.11 k/uL Abs Baso 0.05 LAB AUNRBC 0 /100 WBC NRBCs 0.0 LAB ABNRBC <0.01 k/uL Absolute nRBC <0.01 LAB DTYP DTYPE Auto Diff Performed By: #### WSR, CBCDIF, CMP #### [facility] [address] [place], [place] [address] COMP METABOLIC PANEL Collected: 04/02/2018 Status: F Source: [place] 9:47 AM [facility] REPOSITORY TYPE CODE TESTS RESULT OUT OF REFERENCE UNITS RANGE LAB TP 6.3-8.0 g/dL Low Protein, Total 6.1 LAB ALB 3.9-4.9 g/dL Low Albumin 3.4 LAB CA 8.5-10.2 mg/dL Calcium, Total 9.4 LAB TBIL 0.2-1.3 mg/dL Low Bilirubin, Total <0.2 LAB ALKP 34-123 U/L Alkaline High Phosphatase 255 LAB AST 13-35 U/L AST 21 LAB GLU 74-99 mg/dL Glucose 77 Result Comment: The [place] Diabetes Association (ADA) provides guidance for cutoff values for fasting glucose and random glucose. The ADA defines fasting as no caloric intake for at least 8 hours. Fas ting plasma glucose results between 100 to 125 mg/dL indicate increased risk for diabetes (prediabetes). Fasting plasma glucose results greater than or equal to 126 mg/dL meet the criteria for diagnosis of diabetes. In the absence of unequivocal hyperglycemia, results should be confirmed by repeat testing. In a patient with classic symptoms of hyperglycemia or hyperglycemic crisis, random plasma glucose results greater than or equal to 200 mg/dL meet the criteria for diagnosis of diabetes. Reference: Standards of Medical Care in Diabetes 2016, [place] Diabetes Association. Diabetes Care. 2016.39(Suppl 1). LAB BUN 7-21 mg/dL BUN 9 LAB CRET 0.58-0.96 mg/dL Creatinine 0.67 LAB NA 136-144 mmol/L Sodium 138 LAB K 3.7-5.1 mmol/L Potassium 3.7 LAB CL 97-105 mmol/L Chloride 103 LAB CO2 22-30 mmol/L CO2 23 LAB AGAP 9-18 mmol/L Anion Gap 12 LAB ALT 7-38 U/L ALT 20 LAB GFRAA eGFR- Amer. >60 LAB GFRNAA . eGFR-All Other Races >60 Result Comment: eGFR (Estimated GFR) Units of measure: mL/min/1.73 meters squared eGFR is derived from the reexpressed MDRD Study equation using the following parameters: serum creatinine, age, gender and race. The creatinine assay has been calibrated to be traceable to IDMS. An eGFR <60 mL/min/1.73m2 for >3 months is consistent with chronic kidney disease. Refer to KDOQI guidelines for clinical interpretation. In patients with unstable renal function, e.g. those with acute kidney injury, the eGFR may not accurately reflect actual GFR. Performed By: #### WSR, CBCDIF, CMP #### [facility] [address] [place], [place] [address] URINALYSIS Collected: 04/02/2018 Status: F Source: [place] 9:43 AM [facility] REPOSITORY TYPE CODE TESTS RESULT OUT OF RANGE REFERENCE UNITS LAB UCOL Yellow Color Yellow LAB [facility] Clear Clarity Clear LAB UGLUC Negative mg/dL Glucose, Urine Negative LAB UBIL Negative Bilirubin, Urine Negative LAB UKET Negative Ketones, Urine Negative LAB USPG 1.005-1.030 Specific Mather, Ur 1.006 LAB UHGB Negative Hemoglobin/Blood, Negative Ur LAB UPH 4.5-8.0 pH 6.0 LAB UPROT Negative mg/dL Protein, Urine Negative LAB UUROB Normal Urobilinogen Normal LAB UNITR Negative Nitrites Negative LAB ULKEST Negative Leukest Abnormal 2+ Alert LAB UCOM Comments SEE COMMENT Result Comment: Microscopic Examination Performed LAB UWBC 0-5 /HPF WBC 0-5 LAB URBC 0-3 /HPF RBC 0-3 LAB UEPI /HPF Epithelial SEE Cells COMMENT Result Comment: Few Squamous Epithelial Cells LAB UMCOM Urine SEE Kapil Comment COMMENT Result Comment: Result rechecked. Performed By: #### UA #### [facility] [employer] [address] [place] [address] GROUP B STREP PCR Collected: 03/12/2018 Status: F Source: [place] 11:00 AM [facility] REPOSITORY TYPE CODE TESTS RESULT OUT OF REFERENCE UNITS RANGE LAB GBPCRT Negative for GROUP Group B B STREP PCR Streptococcus by PCR. Performed By: #### GBPCR #### [facility] [employer] [address] [place], [place] [address] PROGRESS Observed: 02/28/2018 Status: COMPLETED Source: [place] 8:15 AM [facility] REPOSITORY HNO ID: [id number] Author: Ash Garrison Service: (none) Author Type: Physician Type: Progress Notes Filed: 02/28/2018 8:20 AM Note Text: CC: Denis Quan is a 32 year old female who presents to the office for physical HPI: Overall is doing well Asthma, restarted on Advair recently due to increased flare ups/symptoms, overall stable now Long standing hx of depression, noticed increased sadness in Dec/Jan, restarted on Wellbutrin, thinking dose needs to be increased, is starting to feel better, no SI or HI. Currently 34 weeks 2 days , managed by [facility] [employer] office, delivering at [facility] PAST MEDICAL HISTORY Diagnosis Date - Asthma - Churg-Santosh syndrome (HCC) 2005 - Dysmenorrhea primary ocp helps - fracture 5 years old right arm - HSDD - Hypercholesterolemia 10/17/2012 - Other and unspecified hyperlipidemia LDL 138 - Personal history of unspecified urinary disorder history of frequent UTI, last one 2011 - Pulmonary eosinophilia (HCC) - recurrent UTI no issue since 2011 - Unspecified asthma(493.90) - Venereal warts 2007 - Vitamin D deficiency 2010 29 - weight gain PAST SURGICAL HISTORY Procedure Laterality Date - ENDOSCOPY PROC 08/03/2016 - SINUS SURGERY PROC UNLISTED 2006 Social History: Social History Substance Use Topics - Smoking status: Never Smoker - Smokeless tobacco: Never Used - Alcohol use 4.5 oz/week 3 Glasses of Wine (5oz) per week Comment: not while FAMILY HISTORY Problem Relation Age of Onset - Thyroid Mother Hyperthyroidism - other (hypercholesterolemia) Father - Diabetes Maternal Grandfather - Ischemic Heart Disease Maternal Grandfather - Hypertension Maternal Grandfather - other (Tuberculosis) Maternal Grandfather - Hypertension Brother - Hyperlipidemia Brother - Hypertension Brother - Diabetes Maternal Grandmother - other (Dementia) Paternal Grandmother - Aneurysm Paternal Grandfather brain Current Outpatient prescriptions: buPROPion XL (WELLBUTRIN XL) 300 mg 24 hr tablet Take 1 tablet by mouth once daily. fluticasone-salmeterol HFA (ADVAIR) 230-21 mcg/actuation inhaler Inhale 2 Puffs as instructed twice daily. budesonide (PULMICORT) 0.5 mg/2 mL nebulizer solution use 2 mL twice daily. Use 1ml in each nostril twice daily as directed. Ooetewkg-Yv-Mdh-Fe-FA ( VITAMIN) tab Take 1 tablet by mouth. lactobacillus combo no.6 (PROBIOTIC COMPLEX ORAL) Take by mouth. albuterol HFA (PROAIR HFA) 90 mcg/actuation inhaler Inhale 2 Puffs as instructed every 6 hours as needed for Wheezing/Shortness of Breath. [place]-3 Fatty Acids-Vitamin E (FISH OIL) 1,000 mg cap Take 1 capsule by mouth twice daily. B-COMPLEX WITH VITAMIN C TAB Take one(1) tablet daily. Allergies: ALLERGIES Allergen Reactions - Cat Hair Extract - Dust Mites - Itraconazole Itching - Levofloxacin Rash - Mold - Sulfa (Sulfonamide * Rash ROS: See HPI PE: 02/28/18 0747 BP: 90/52 BP Site: Left Arm BP Position: Sitting BP Cuff Size: Regular Adult Pulse: 84 Resp: 18 Weight: 69.9 kg (154 lb 1.9 oz) Height: 165.1 cm (5' 5) Gen: AANDO, NAD, non-toxic appearing, Pleasant, cooperative HEENT: NT/AC, PERRLA, EOMs intact b/l, nares clear and patent b/l, pharynx without erythema, exudate or lesions. Uvula midline. EACs without erythema or debris. TMs pearly marks with intact landmarks b/l. Neck: supple, No cervical LAD, no thyromegaly, no carotid bruits CV: RRR, normal S1 and S2, no murmurs, no gallops, no rubs, Pulses 2+ and symmetric in UE and LE b/l Lungs: normal respiratory effort, scattered expiratory wheeze at bases Abd: soft, gravid uterus/distended abdomen, NT, ND, +BS, no hepatosplenomegaly MS: FROM all 4 extremities Neuro: CN II-XII intact b/l, strength 5/5 b/l UE and LE, DTRs 2/4 UE and LE, sensation intact. Skin: warm, dry, intact, No rashes or lesions on exposed skin. ASSESSMENT/PLAN: 1. Well adult exam - ICD9: V70.0, ICD10: Z00.00 (primary diagnosis) - f/u with OBGYN, f/u at 3-4 months post 2. Depression affecting - ICD9: 648.40, 311, ICD10: O99.340, F32.9 - increase dose, aware of possible SE with medication - BUPROPION XL 300 MG 24 HR TAB 3. Mood disorder (HCC) - ICD9: 296.90, ICD10: F39 - stable, Ash Garrison DO To ER if develops chest pain, shortness of breath, or severe worsening of symptoms. Discussed risks, benefits, alternatives, and potential side effects of medications. Patient expressed understanding and agreed with the plan. Ash Garrison DO [address] [place] [address] DAIN Observed: 02/28/2018 Status: COMPLETED Source: [place] 7:40 AM [facility] REPOSITORY [facility] DEN[facility] ([id number]) 1985 F Date Time Provider Department 02/28/18 7:40 AM ASH GARRISON During your visit today, we recorded the following information about you: Pulse Respiration Blood pressure Weight 84/minute 18/minute 90/52 69.9 kg Height 1.651 m Ash Garrison, DO 02/28/2018 8:06 AM Signed Zantac 150 mg twice a day for acid related symptoms Ash Garrison, DO 02/28/2018 8:20 AM Signed CC: Denis Quan is a 32 year old female who presents to the office for physical HPI: Overall is doing well Asthma, restarted on Advair recently due to increased flare ups/symptoms, overall stable now Long standing hx of depression, noticed increased sadness in Dec/Jan, restarted on Wellbutrin, thinking dose needs to be increased, is starting to feel better, no SI or HI. Currently 34 weeks 2 days , managed by [facility] [employer] office, delivering at [facility] PAST MEDICAL HISTORY Diagnosis Date - Asthma - Churg-Santosh syndrome (HCC) 2006 - Dysmenorrhea primary ocp helps - fracture 5 years old right arm - HSDD - Hypercholesterolemia 10/17/2012 - Other and unspecified hyperlipidemia LDL 138 - Personal history of unspecified urinary disorder history of frequent UTI, last one 2011 - Pulmonary eosinophilia (HCC) - recurrent UTI no issue since 2011 - Unspecified asthma(493.90) - Venereal warts 2007 - Vitamin D deficiency 2010 29 - weight gain PAST SURGICAL HISTORY Procedure Laterality Date - ENDOSCOPY PROC 08/03/2016 - SINUS SURGERY PROC UNLISTED 2006 Social History: Social History Substance Use Topics - Smoking status: Never Smoker - Smokeless tobacco: Never Used - Alcohol use 4.5 oz/week 3 Glasses of Wine (5oz) per week Comment: not while FAMILY HISTORY Problem Relation Age of Onset - Thyroid Mother Hyperthyroidism - other (hypercholesterolemia) Father - Diabetes Maternal Grandfather - Ischemic Heart Disease Maternal Grandfather - Hypertension Maternal Grandfather - other (Tuberculosis) Maternal Grandfather - Hypertension Brother - Hyperlipidemia Brother - Hypertension Brother - Diabetes Maternal Grandmother - other (Dementia) Paternal Grandmother - Aneurysm Paternal Grandfather brain Current Outpatient prescriptions: buPROPion XL (WELLBUTRIN XL) 300 mg 24 hr tablet Take 1 tablet by mouth once daily. fluticasone-salmeterol HFA (ADVAIR) 230-21 mcg/actuation inhaler Inhale 2 Puffs as instructed twice daily. budesonide (PULMICORT) 0.5 mg/2 mL nebulizer solution use 2 mL twice daily. Use 1ml in each nostril twice daily as directed. Lfsvhitm-Bt-Mqe-Fe-FA ( VITAMIN) tab Take 1 tablet by mouth. lactobacillus combo no.6 (PROBIOTIC COMPLEX ORAL) Take by mouth. albuterol HFA (PROAIR HFA) 90 mcg/actuation inhaler Inhale 2 Puffs as instructed every 6 hours as needed for Wheezing/Shortness of Breath. [place]-3 Fatty Acids-Vitamin E (FISH OIL) 1,000 mg cap Take 1 capsule by mouth twice daily. B-COMPLEX WITH VITAMIN C TAB Take one(1) tablet daily. Allergies: ALLERGIES Allergen Reactions - Cat Hair Extract - Dust Mites - Itraconazole Itching - Levofloxacin Rash - Mold - Sulfa (Sulfonamide * Rash ROS: See HPI PE: 02/28/18 0747 BP: 90/52 BP Site: Left Arm BP Position: Sitting BP Cuff Size: Regular Adult Pulse: 84 Resp: 18 Weight: 69.9 kg (154 lb 1.9 oz) Height: 165.1 cm (5' 5) Gen: AANDO, NAD, non-toxic appearing, Pleasant, cooperative HEENT: NT/AC, PERRLA, EOMs intact b/l, nares clear and patent b/l, pharynx without erythema, exudate or lesions. Uvula midline. EACs without erythema or debris. TMs pearly marks with intact landmarks b/l. Neck: supple, No cervical LAD, no thyromegaly, no carotid bruits CV: RRR, normal S1 and S2, no murmurs, no gallops, no rubs, Pulses 2+ and symmetric in UE and LE b/l Lungs: normal respiratory effort, scattered expiratory wheeze at bases Abd: soft, gravid uterus/distended abdomen, NT, ND, +BS, no hepatosplenomegaly MS: FROM all 4 extremities Neuro: CN II-XII intact b/l, strength 5/5 b/l UE and LE, DTRs 2/4 UE and LE, sensation intact. Skin: warm, dry, intact, No rashes or lesions on exposed skin. ASSESSMENT/PLAN: 1. Well adult exam - ICD9: V70.0, ICD10: Z00.00 (primary diagnosis) - f/u with OBGYN, f/u at 3-4 months post 2. Depression affecting - ICD9: 648.40, 311, ICD10: O99.340, F32.9 - increase dose, aware of possible SE with medication - BUPROPION XL 300 MG 24 HR TAB 3. Mood disorder (HCC) - ICD9: 296.90, ICD10: F39 - stable, Ash Garrison DO To ER if develops chest pain, shortness of breath, or severe worsening of symptoms. Discussed risks, benefits, alternatives, and potential side effects of medications. Patient expressed understanding and agreed with the plan. Ash Garrison DO [address] [place] [address] Referring Provider: ASH GARRISON [[id number]] Allergies As of Date: 02/28/2018 Noted Allergy Reaction CAT HAIR EXTRACT 12/03/2004 DUST MITES 12/03/2004 ITRACONAZOLE 12/03/2004 9 - Itching LEVOFLOXACIN 12/03/2004 2 - Rash MOLD 12/03/2004 SULFA (SULFONAMIDE ANTIBIOTICS) 09/28/2005 2 - Rash Date Reviewed: 02/28/2018 Reviewed by: Ann Turner (Nikolai) NIKOLAI Lopez - Fully Assessed Reason for Visit: Physical [83] Primary Visit Diagnosis:Well adult exam [Z00.00] Other Visit Diagnoses:Depression affecting [O99.340, F32.9] Mood disorder (HCC) [F39] Order(s):buPROPion XL (WELLBUTRIN XL) 300 mg 24 hr tabletTake 1 tablet by mouth once daily.Disp: 90 tabletRfl: 1 Prescriptions as of 02/28/2018 Sig: BUPROPION XL 300 MG 24 HR TAB Take 1 tablet by mouth once d* FLUTICASONE-SALMETEROL 230 MC* Inhale 2 Puffs as instructed * BUDESONIDE 0.5 MG/2 ML SUSPEN* use 2 mL twice daily. Use 1ml* VITAMIN,CALCIUM,MINE* Take 1 tablet by mouth. PROBIOTIC COMPLEX ORAL Take by mouth. ALBUTEROL SULFATE HFA 90 MCG/* Inhale 2 Puffs as instructed * [place]-3 FATTY ACIDS-VITAMIN E* Take 1 capsule by mouth twice* B-COMPLEX WITH VITAMIN C TABL* Take one(1) tablet daily. Problem List As Of Date 02/28/2018 Noted Resolved Asthma [J45.909] More... 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 Sinusitis, chronic [J32.9] INVALID FOR* PEANUT CLEANER STEROIDS [RKF4633] INVALID FOR* Urinary tract infection, site not specified [N3*INVALID FOR*10/31/2012 Churg-Santosh syndrome (HCC) [M30.1] INVALID FOR* Priority: Moderate More... UTI (lower urinary tract infection) [N39.0] INVALID FOR* Chest pain [R07.9] INVALID FOR*01/20/2014 Palpitations [R00.2] INVALID FOR*06/21/2017 Family history of hyperlipidemia [Z83.438] INVALID FOR*06/21/2017 Hypercholesterolemia [E78.00] INVALID FOR* Headache [R51] INVALID FOR* Priority: Severe More... Neutropenic fever [D70.9, R50.81] INVALID FOR* Priority: Very Severe More... Mouth ulcers [K12.1] INVALID FOR*06/21/2017 Priority: Severe More... Thrombocytosis [D47.3] INVALID FOR*07/01/2013 Priority: Mild More... Nausea [R11.0] INVALID FOR*06/21/2017 More... Oral thrush [B37.0] INVALID FOR* More... MILES (acute kidney injury) [N17.9] INVALID FOR* More... DISPOSITION AND FOLLOW-UP [V999.01] INVALID FOR*06/21/2017 More... Dyspareunia [LPP6509] INVALID FOR*06/21/2017 Vaginismus [N94.2] INVALID FOR* Vitamin D deficiency [E55.9] Other and unspecified hyperlipidemia [E78.5] HSDD [F52.0] Dysmenorrhea [N94.6] 06/21/2017 More... Muscle spasm [M62.838] INVALID FOR*06/21/2017 Eosinophilia [D72.1] INVALID FOR* Epigastric pain [R10.13] INVALID FOR*06/21/2017 Abnormal weight loss [R63.4] INVALID FOR* Poor appetite [R63.0] INVALID FOR* History of depression [Z86.59] INVALID FOR* More... History of abdominal pain [Z87.898] INVALID FOR* More... History of recurrent UTI (urinary tract infecti*INVALID FOR* More... Other instructions from your clinician: Zantac 150 mg twice a day for acid related symptoms Prescriptions ordered this encounter Disp Refills Start End BUPROPION XL 300 MG 24 HR TAB 90 t* 1 02/28/2018 Route: ORAL Sig: Take 1 tablet by mouth once daily. Medications Discontinued During This Encounter buPROPion XL (WELLBUTRIN XL) 150 mg * 30 t* 2 01/29/2018 02/28/2018 Route: ORAL Sig: Take 1 tablet by mouth once daily. Disc: Reason for discontinue is not on file. Encounter Status:Closed by ASH GARRISON DO on 02/28/18 PROGRESS Observed: 02/26/2018 Status: COMPLETED Source: [place] 8:32 AM [facility] REPOSITORY [facility] ID: [id number] Author: Aniyah Patton Caskey Service: (none) Author Type: Psychological Assistant Type: Progress Notes Filed: 02/26/2018 9:03 AM Note Text: Patient identified by name and date of . Denis Quan presents today for a vaccination of Tdap. Patient denies an allergy to latex: yes Patient denies a severe (life-threatening) allergy to a previous dose of Tdap, DTP, DTaP, DT or Td vaccine. Yes Patient denies history of epilepsy or neurological problems: Yes Patient is afebrile and denies being moderately or severely ill: Yes Patient denies history of Guillain-Corona Syndrome (a severe paralytic illness): Yes Tdap Adacel injection was given without incident. See immunizations for details of immunizations administered today. VIS sheet provided: Yes Provider Liliana Vincent DO was present in office at time of injection. Aniyah Shaw MA PROGRESS Observed: 02/22/2018 Status: COMPLETED Source: [place] 10:34 AM [facility] REPOSITORY [facility] ID: [id number] Author: Luz Luis (Coord) Service: (none) Author Type: Resource Type: Progress Notes Filed: 02/22/2018 10:35 AM Note Text: Densi Quan was seen by Annel Salazar for IRB # [id number]. Risks/Benefits, and alternatives discussed w/ Denis Quan. Luz Luis discussed participation in this study w/ Denis Chavarria Kadeem. Explained follow-up requirements. Reviewed consent form dated w/ Denis Quan. Denis Quan Agreed to participate in this study. Copy of completed consent form NOT given to patient because patient requested not to receive a copy. Denis Quan asked appropriate questions and answers provided. Denis Chavarria Quan verbalized understanding of consent form. Consent obtained February 22, 2018 at 10:26am time. Annel Salazar contact information provided to Denis Chavarria Kadeem. 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 Evaluation Date: 02/22/2018 ACTIVE PROBLEM LIST Neutropenic Fever (Hcc) - 06/29/2013 (Very Severe priority) Comment: 07/03/2013 Total WBC improved after neupogen, ANC 930. Afebrile since adm. ANC 130 from 0. Blood cx NGTD Can f/u BM bx results as outpt 07/01/13: - BM aspirate and bx performed Headache - 06/29/2013 (Severe priority) Comment: Frontal MOSCOSO worsened with standing and improved with recumbency in setting of multiple LP attempts. CT brain unremarkable. CSF sterile, no wbc. 07/03/2013 MOSCOSO slowly improving. Still significant discomfort. 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 Mar 2008-Apr 2008: relapse: fever, sinusitis, asthma, malaise, increase eos. Increase pred 60/d. Improved. Also increase Imuran to 200mg/d => remission. 2008 - Mar - Relapse - rituximab (RTX)- better, stopped azathioprine. SEP 2010 - Relapse - RTX August 2011 - Relapse - nose, sinus, fatigue. jts/muscles. Add Imuran, RTX, increase pred. Improved. 02/2012 - relapse: nose, sinus, jts, muscles. RTX x 1000mg once. Incr pred => REM 01/04- relapse involving lungs, joints, ? GI => RTX => 07/05 -delayed onset neutropenia w/ ENT infection. MMF since 09/2013 History of Depression - 08/17/2017 Comment: 01/29/2018 Restarted Wellbutrin 08/17/2017 Pt has a history of depression and anxiety diagnosed January 2014 by . She has been off medication for 1 month . She believes she is doing well off medication. Discussed increased risks of depression during and and importance of reporting the development or worsening of symptoms should they occur.Pt denies ever having any suicidal thoughts or tendencies or thoughts of hurting others.TKRN History of Abdominal Pain - 08/17/2017 Comment: 08/17/2017 Patient has been havinggas pains above my belly button that caused me to call off work the other day. Pains are intermittent. She rates a 5 on pain scale. Patient had an ultrasound done 08/14 that revealed an IUP at 6w0d. Discussed with Dr Lopez. Patient to be evaluated by PCP this week or Urgent Care. TKRN History of Recurrent Uti (Urinary Tract Infection) - 08/17/2017 Comment: 08/17/2017Patient has a history of recurrent UTi, but none since 2011. TKRN Abnormal Weight Loss - 08/14/2016 Poor Appetite - 08/14/2016 Eosinophilia - 07/06/2015 Vitamin D Deficiency Other and Unspecified Hyperlipidemia HSDD Vaginismus - 12/17/2013 Miles (Acute Kidney Injury) (Hcc) - 07/02/2013 Comment: In setting of hypovolemia and SIRS, was likely prerenal. Baseline Cr 0.6 07/03/13 SCr stable at 1.1 after IVF repletion and empiric Abx Oral Thrush - 07/01/2013 Comment: Likely d/t immunosuppresion. Allergic to azoles 07/01/13 On oral nystatin Hypercholesterolemia - 10/17/2012 Uti (Lower Urinary Tract Infection) - 11/15/2010 Encounter for Long-Term (Current) Use of Steroids - 01/31/2007 Sinusitis, Chronic - 11/30/2006 Asthma Comment: 02/12/2018: Mild intermittent. Albuterol 1-2 times a week. 01/29/18 Asthma worsening. Mild persistent. Recommended both albuterol prn and pulmicort. Pulmonary Eosinophilia (Hcc) INTERVAL HX: At today's visit Denis Deon Quan states that she has been doing well except for an increase in asthma flares. Episodes have increased from about once a week at time of to 2-3x per week in the past month. There is associated productive cough and SOB. Improves with albuterol inhaler. Churg Santosh symptoms in past were notable for sinus drainage and polyps, asthma, knee/ankle/wrist joint swelling and tenderness. All of these symptoms have improved with except for the asthma. She is currently 33 weeks with her second . Her first suffered a spontaneous miscarriage in June 2017. She is compliant with a healthy diet including vitamins. She last saw Dr. Omar Dee on 03/08/17. She had been having sinus issues at that time which has since subsided. SMALL/MEDIUM VESSEL VASCULITIS ROS: GENERAL: negative for malaise FEVER: none WEIGHT CHANGE: has gained 20 pounds since becoming ENT: negative for sinus tenderness, nasal crusting, bloody nasal drainage, ear pain, decreased hearing, sore throat, difficulty swallowing, mouth lesions, voice changes. Does have occasional bloody drainage about 3x/week. EYES: negative for pain, redness, visual blurring, visual loss, diplopia, proptosis RESPIRATORY: Positive for cough, yellow, non-purulent sputum production, wheezing, shortness of breath during asthma flares CARDIOVASCULAR: negative for chest pain, palpitations, extremity claudication, digital ischemia, Raynaud's, peripheral edema GASTROINTESTINAL: negative for discomfort, BRBPR, black stools, change in bowel habit, vomiting, diarrhea URINARY: negative for hematuria MUSCULOSKELETAL: negative for joint pain, joint swelling back pain, myalgias, proximal myalgias NEUROLOGIC: negative for numbness, weakness, headache, dizziness SKIN: negative for rash, nodules, ulcers, soft tissue loss, steroid induced acne. Occ skin itching on left side. OTHER ROS: all others negative REVIEW OF FAMILY AND/OR SOCIAL HISTORY: The family and/or social were reviewed at todays visit nd no changes were noted. Date of last DEXA: 01/09/2012 Current Outpatient Prescriptions: buPROPion XL (WELLBUTRIN XL) 150 mg 24 hr tablet Take 1 tablet by mouth once daily. budesonide (PULMICORT) 0.5 mg/2 mL nebulizer solution use 2 mL twice daily. Use 1ml in each nostril twice daily as directed. Lwwvzpdi-Va-Uvn-Fe-FA ( VITAMIN) tab Take 1 tablet by mouth. lactobacillus combo no.6 (PROBIOTIC COMPLEX ORAL) Take by mouth. albuterol HFA (PROAIR HFA) 90 mcg/actuation inhaler Inhale 2 Puffs as instructed every 6 hours as needed for Wheezing/Shortness of Breath. [place]-3 Fatty Acids-Vitamin E (FISH OIL) 1,000 mg cap Take 1 capsule by mouth twice daily. B-COMPLEX WITH VITAMIN C TAB Take one(1) tablet daily. No current facility-administered medications for this visit. PHYSICAL EXAMINATION Last menstrual period 06/28/2017. GENERAL APPEARANCE: Appears gravid abdomen, well, NAD SKIN: normal without rashes or lesions EYES: conjunctiva clear, PERRL, EOM normal, fundi normal EARS: External ears normal, TM's normal NOSE/SINUSES: normal OROPHARYNX: no oral lesions present, no oral ulcers. LUNGS: clear HEART: RRR, no gallops, rubs or murmurs ABDOMEN: soft, non-tender, normal BS, no organomegaly or masses MUSCULOSKELETAL: normal NEURO: normal OTHER PHYSICAL EXAMINATION: none Lab results: WBC Date Value Ref Range Status 02/12/2018 10.96 3.70 - 11.00 k/uL Final Hemoglobin Date Value Ref Range Status 02/12/2018 12.4 11.5 - 15.5 g/dL Final Hematocrit Date Value Ref Range Status 02/12/2018 36.6 36.0 - 46.0 % Final Platelet Count Date Value Ref Range Status 02/12/2018 280 150 - 400 k/uL Final Abs Lymph Date Value Ref Range Status 02/12/2018 2.06 1.00 - 4.00 k/uL Final Creatinine Date Value Ref Range Status 02/12/2018 0.54 (L) 0.58 - 0.96 mg/dL Final Glucose Date Value Ref Range Status 02/12/2018 77 74 - 99 mg/dL Final Comment: The [place] Diabetes [employer] (ADA) provides guidance for cutoff values for fasting glucose and random glucose. The ADA defines fasting as no caloric intake for at least 8 hours. Fasting plasma glucose results between 100 to 125 mg/dL indicate increased risk for diabetes (prediabetes). Fasting plasma glucose results greater than or equal to 126 mg/dL meet the criteria for diagnosis of diabetes. In the absence of unequivocal hyperglycemia, results should be confirmed by repeat testing. In a patient with classic symptoms of hyperglycemia or hyperglycemic crisis, random plasma glucose results greater than or equal to 200 mg/dL meet the criteria for diagnosis of diabetes. Reference: Standards of Medical Care in Diabetes 2016, [place] [employer]. Diabetes Care. 2016.39(Suppl 1). AST Date Value Ref Range Status 02/12/2018 18 13 - 35 U/L Final ALT Date Value Ref Range Status 02/12/2018 10 7 - 38 U/L Final WSR Date Value Ref Range Status 02/12/2018 32 (H) 0 - 20 mm/hr Final CRP Date Value Ref Range Status 04/21/2014 0.7 0.0 - 1.0 mg/dL Final Alkaline Phosphatase Date Value Ref Range Status 02/12/2018 111 34 - 123 U/L Final Urine: Specific Mather, Ur Date Value Ref Range Status 11/27/2017 1.019 1.005 - 1.030 Final Glucose, Urine Date Value Ref Range Status 02/12/2018 neg Neg mg/dL Final Bilirubin, Urine Date Value Ref Range Status 11/27/2017 Negative Negative Final Ketones, Urine Date Value Ref Range Status 11/27/2017 Negative Negative Final Hemoglobin/Blood,Ur Date Value Ref Range Status 11/27/2017 Negative Negative Final Protein, Urine Date Value Ref Range Status 02/12/2018 trace Neg mg/dL Final Urobilinogen, Urine Date Value Ref Range Status 05/13/2014 normal Normal (<1.1) EU Final Leukocytes Date Value Ref Range Status 05/13/2014 small Neg Final WBC, Urine Date Value Ref Range Status 11/27/2017 0-5 0 - 5 /HPF 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 However, she is having increased asthma flares which are likely due to the sensation of mechanical compression from her gravid abdomen. It is reasonable to try an an inhaled steroid with long acting beta agonist to better control her symptoms. In addition, we discussed the addition of omalizumab in the future if such symptoms were to persist after childbirth. She and Dr. Child will revisit this discussion after the of her son. Available laboratories were reviewed with the patient. I spent 40 minutes in the visit, with more than 50% of the total face to face time of the visit in the counseling/coordination of care. PLAN: Start Advair (Fluticasone-Salmoterol HFA 230-21 mcg/actuation inhaler) BID Pending studies/orders: none Consults: none Patient instructed to notify provider of any changes in medical condition. Follow-up: as needed Evangelina Kowalski MD Case discussed with staff bead stringer Dr. Omar Dee RHEUMATOLOGY STAFF: I have reviewed the history and physical examination obtained and documented by the fellow and I personally participated in the woods components. I have discussed the case and management of the patient's care with the fellow. [place]' note was revised, edited and confirmed. Assessment and plan discussed with patient Patricia Child MD, MPH Authenticated by responsible provider. Referring Provider: SELF [[id number]] Allergies As of Date: 02/22/2018 Noted Allergy Reaction CAT HAIR EXTRACT 12/03/2004 DUST MITES 12/03/2004 ITRACONAZOLE 12/03/2004 9 - Itching LEVOFLOXACIN 12/03/2004 2 - Rash MOLD 12/03/2004 SULFA (SULFONAMIDE ANTIBIOTICS) 09/28/2005 2 - Rash Date Reviewed: 02/22/2018 Reviewed by: Valerie Knowles MA - Fully Assessed Primary Visit Diagnosis:Churg-Santosh syndrome (HCC) [M30.1] Order(s):fluticasone-salmeterol HFA (ADVAIR) 230-21 mcg/actuation inhalerInhale 2 Puffs as instructed twice daily.Disp: 60 PuffRfl: 2 Prescriptions as of 02/22/2018 Sig: X BUPROPION XL 150 MG TAB Take 1 tablet by mouth once d* BUDESONIDE 0.5 MG/2 ML SUSPEN* use 2 mL twice daily. Use 1ml* VITAMIN,CALCIUM,MINE* Take 1 tablet by mouth. PROBIOTIC COMPLEX ORAL Take by mouth. ALBUTEROL SULFATE HFA 90 MCG/* Inhale 2 Puffs as instructed * [place]-3 FATTY ACIDS-VITAMIN E* Take 1 capsule by mouth twice* B-COMPLEX WITH VITAMIN C TABL* Take one(1) tablet daily. FLUTICASONE-SALMETEROL 230 MC* Inhale 2 Puffs as instructed * Problem List As Of Date 02/22/2018 Noted Resolved Asthma [J45.909] More... 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 Sinusitis, chronic [J32.9] INVALID FOR* HALFWAY STEROIDS [XLL9282] INVALID FOR* Urinary tract infection, site not specified [N3*INVALID FOR*10/31/2012 Churg-Santosh syndrome (HCC) [M30.1] INVALID FOR* Priority: Moderate More... UTI (lower urinary tract infection) [N39.0] INVALID FOR* Chest pain [R07.9] INVALID FOR*01/20/2014 Palpitations [R00.2] INVALID FOR*06/21/2017 Family history of hyperlipidemia [Z83.438] INVALID FOR*06/21/2017 Hypercholesterolemia [E78.00] INVALID FOR* Headache [R51] INVALID FOR* Priority: Severe More... Neutropenic fever [D70.9, R50.81] INVALID FOR* Priority: Very Severe More... Mouth ulcers [K12.1] INVALID FOR*06/21/2017 Priority: Severe More... Thrombocytosis [D47.3] INVALID FOR*07/01/2013 Priority: Mild More... Nausea [R11.0] INVALID FOR*06/21/2017 More... Oral thrush [B37.0] INVALID FOR* More... MILES (acute kidney injury) [N17.9] INVALID FOR* More... DISPOSITION AND FOLLOW-UP [V999.01] INVALID FOR*06/21/2017 More... Dyspareunia [NIJ9344] INVALID FOR*06/21/2017 Vaginismus [N94.2] INVALID FOR* Vitamin D deficiency [E55.9] Other and unspecified hyperlipidemia [E78.5] HSDD [F52.0] Dysmenorrhea [N94.6] 06/21/2017 More... Muscle spasm [M62.838] INVALID FOR*06/21/2017 Eosinophilia [D72.1] INVALID FOR* Epigastric pain [R10.13] INVALID FOR*06/21/2017 Abnormal weight loss [R63.4] INVALID FOR* Poor appetite [R63.0] INVALID FOR* History of depression [Z86.59] INVALID FOR* More... History of abdominal pain [Z87.898] INVALID FOR* More... History of recurrent UTI (urinary tract infecti*INVALID FOR* More... Prescriptions ordered this encounter Disp Refills Start End FLUTICASONE-SALMETEROL 230 MCG-21 MC* 60 P* 2 02/22/2018 03/24/2018 Route: INHALATION Sig: Inhale 2 Puffs as instructed twice daily. Encounter Status:Closed by PATRICIA OQUENDO MD on 03/11/18 PROGRESS Observed: 02/22/2018 Status: COMPLETED Source: [place] 10:03 AM [facility] [place] REPOSITORY HNO ID: [id number] Author: Patricia Dee Service: (none) Author Type: Physician Type: Progress Notes Filed: 03/11/2018 9:29 AM Note Text: Follow Up Note Denis Quan is a 32 year old female here for follow- up of Churg Santosh syndrome. Evaluation Date: 02/22/2018 ACTIVE PROBLEM LIST Neutropenic Fever (Hcc) - 06/29/2013 (Very Severe priority) Comment: 07/03/2013 Total WBC improved after neupogen, ANC 930. Afebrile since adm. ANC 130 from 0. Blood cx NGTD Can f/u BM bx results as outpt 07/01/13: - BM aspirate and bx performed Headache - 06/29/2013 (Severe priority) Comment: Frontal MOSCOSO worsened with standing and improved with recumbency in setting of multiple LP attempts. CT brain unremarkable. CSF sterile, no wbc. 07/03/2013 MOSCOSO slowly improving. Still significant discomfort. 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 Mar 2008-Apr 2008: relapse: fever, sinusitis, asthma, malaise, increase eos. Increase pred 60/d. Improved. Also increase Imuran to 200mg/d => remission. 2008 - Mar - Relapse - rituximab (RTX)- better, stopped azathioprine. SEP 2010 - Relapse - RTX August 2011 - Relapse - nose, sinus, fatigue. jts/muscles. Add Imuran, RTX, increase pred. Improved. 02/2012 - relapse: nose, sinus, jts, muscles. RTX x 1000mg once. Incr pred => REM 01/04- relapse involving lungs, joints, ? GI => RTX => 07/05 -delayed onset neutropenia w/ ENT infection. MMF since 09/2013 History of Depression - 08/17/2017 Comment: 01/29/2018 Restarted Wellbutrin 08/17/2017 Pt has a history of depression and anxiety diagnosed January 2014 by . She has been off medication for 1 month . She believes she is doing well off medication. Discussed increased risks of depression during and and importance of reporting the development or worsening of symptoms should they occur.Pt denies ever having any suicidal thoughts or tendencies or thoughts of hurting others.TKRN History of Abdominal Pain - 08/17/2017 Comment: 08/17/2017 Patient has been havinggas pains above my belly button that caused me to call off work the other day. Pains are intermittent. She rates a 5 on pain scale. Patient had an ultrasound done 08/14 that revealed an IUP at 6w0d. Discussed with Dr Lopez. Patient to be evaluated by PCP this week or Urgent Care. TKRN History of Recurrent Uti (Urinary Tract Infection) - 08/17/2017 Comment: 08/17/2017Patient has a history of recurrent UTi, but none since 2011. TKRN Abnormal Weight Loss - 08/14/2016 Poor Appetite - 08/14/2016 Eosinophilia - 07/06/2015 Vitamin D Deficiency Other and Unspecified Hyperlipidemia HSDD Vaginismus - 12/17/2013 Miles (Acute Kidney Injury) (Hcc) - 07/02/2013 Comment: In setting of hypovolemia and SIRS, was likely prerenal. Baseline Cr 0.6 07/03/13 SCr stable at 1.1 after IVF repletion and empiric Abx Oral Thrush - 07/01/2013 Comment: Likely d/t immunosuppresion. Allergic to azoles 07/01/13 On oral nystatin Hypercholesterolemia - 10/17/2012 Uti (Lower Urinary Tract Infection) - 11/15/2010 Encounter for Long-Term (Current) Use of Steroids - 01/31/2007 Sinusitis, Chronic - 11/30/2006 Asthma Comment: 02/12/2018: Mild intermittent. Albuterol 1-2 times a week. SW 01/29/18 Asthma worsening. Mild persistent. Recommended both albuterol prn and pulmicort. Pulmonary Eosinophilia (Hcc) INTERVAL HX: At today's visit Denis Quan states that she has been doing well except for an increase in asthma flares. Episodes have increased from about once a week at time of to 2-3x per week in the past month. There is associated productive cough and SOB. Improves with albuterol inhaler. Churg Santosh symptoms in past were notable for sinus drainage and polyps, asthma, knee/ankle/wrist joint swelling and tenderness. All of these symptoms have improved with except for the asthma. She is currently 33 weeks with her second . Her first suffered a spontaneous miscarriage in June 2017. She is compliant with a healthy diet including vitamins. She last saw Dr. Omar Dee on 03/08/17. She had been having sinus issues at that time which has since subsided. SMALL/MEDIUM VESSEL VASCULITIS ROS: GENERAL: negative for malaise FEVER: none WEIGHT CHANGE: has gained 20 pounds since becoming ENT: negative for sinus tenderness, nasal crusting, bloody nasal drainage, ear pain, decreased hearing, sore throat, difficulty swallowing, mouth lesions, voice changes. Does have occasional bloody drainage about 3x/week. EYES: negative for pain, redness, visual blurring, visual loss, diplopia, proptosis RESPIRATORY: Positive for cough, yellow, non-purulent sputum production, wheezing, shortness of breath during asthma flares CARDIOVASCULAR: negative for chest pain, palpitations, extremity claudication, digital ischemia, Raynaud's, peripheral edema GASTROINTESTINAL: negative for discomfort, BRBPR, black stools, change in bowel habit, vomiting, diarrhea URINARY: negative for hematuria MUSCULOSKELETAL: negative for joint pain, joint swelling back pain, myalgias, proximal myalgias NEUROLOGIC: negative for numbness, weakness, headache, dizziness SKIN: negative for rash, nodules, ulcers, soft tissue loss, steroid induced acne. Occ skin itching on left side. OTHER ROS: all others negative REVIEW OF FAMILY AND/OR SOCIAL HISTORY: The family and/or social were reviewed at todays visit nd no changes were noted. Date of last DEXA: 01/09/2012 Current Outpatient Prescriptions: buPROPion XL (WELLBUTRIN XL) 150 mg 24 hr tablet Take 1 tablet by mouth once daily. budesonide (PULMICORT) 0.5 mg/2 mL nebulizer solution use 2 mL twice daily. Use 1ml in each nostril twice daily as directed. Qwahajde-Is-Nwh-Fe-FA ( VITAMIN) tab Take 1 tablet by mouth. lactobacillus combo no.6 (PROBIOTIC COMPLEX ORAL) Take by mouth. albuterol HFA (PROAIR HFA) 90 mcg/actuation inhaler Inhale 2 Puffs as instructed every 6 hours as needed for Wheezing/Shortness of Breath. [place]-3 Fatty Acids-Vitamin E (FISH OIL) 1,000 mg cap Take 1 capsule by mouth twice daily. B-COMPLEX WITH VITAMIN C TAB Take one(1) tablet daily. No current facility-administered medications for this visit. PHYSICAL EXAMINATION Last menstrual period 06/28/2017. GENERAL APPEARANCE: Appears gravid abdomen, well, NAD SKIN: normal without rashes or lesions EYES: conjunctiva clear, PERRL, EOM normal, fundi normal EARS: External ears normal, TM's normal NOSE/SINUSES: normal OROPHARYNX: no oral lesions present, no oral ulcers. LUNGS: clear HEART: RRR, no gallops, rubs or murmurs ABDOMEN: soft, non-tender, normal BS, no organomegaly or masses MUSCULOSKELETAL: normal NEURO: normal OTHER PHYSICAL EXAMINATION: none Lab results: WBC Date Value Ref Range Status 02/12/2018 10.96 3.70 - 11.00 k/uL Final Hemoglobin Date Value Ref Range Status 02/12/2018 12.4 11.5 - 15.5 g/dL Final Hematocrit Date Value Ref Range Status 02/12/2018 36.6 36.0 - 46.0 % Final Platelet Count Date Value Ref Range Status 02/12/2018 280 150 - 400 k/uL Final Abs Lymph Date Value Ref Range Status 02/12/2018 2.06 1.00 - 4.00 k/uL Final Creatinine Date Value Ref Range Status 02/12/2018 0.54 (L) 0.58 - 0.96 mg/dL Final Glucose Date Value Ref Range Status 02/12/2018 77 74 - 99 mg/dL Final Comment: The [place] Diabetes Association (ADA) provides guidance for cutoff values for fasting glucose and random glucose. The ADA defines fasting as no caloric intake for at least 8 hours. Fasting plasma glucose results between 100 to 125 mg/dL indicate increased risk for diabetes (prediabetes). Fasting plasma glucose results greater than or equal to 126 mg/dL meet the criteria for diagnosis of diabetes. In the absence of unequivocal hyperglycemia, results should be confirmed by repeat testing. In a patient with classic symptoms of hyperglycemia or hyperglycemic crisis, random plasma glucose results greater than or equal to 200 mg/dL meet the criteria for diagnosis of diabetes. Reference: Standards of Medical Care in Diabetes 2016, [place] Diabetes Association. Diabetes Care. 2016.39(Suppl 1). AST Date Value Ref Range Status 02/12/2018 18 13 - 35 U/L Final ALT Date Value Ref Range Status 02/12/2018 10 7 - 38 U/L Final WSR Date Value Ref Range Status 02/12/2018 32 (H) 0 - 20 mm/hr Final CRP Date Value Ref Range Status 04/21/2014 0.7 0.0 - 1.0 mg/dL Final Alkaline Phosphatase Date Value Ref Range Status 02/12/2018 111 34 - 123 U/L Final Urine: Specific Mather, Ur Date Value Ref Range Status 11/27/2017 1.019 1.005 - 1.030 Final Glucose, Urine Date Value Ref Range Status 02/12/2018 neg Neg mg/dL Final Bilirubin, Urine Date Value Ref Range Status 11/27/2017 Negative Negative Final Ketones, Urine Date Value Ref Range Status 11/27/2017 Negative Negative Final Hemoglobin/Blood,Ur Date Value Ref Range Status 11/27/2017 Negative Negative Final Protein, Urine Date Value Ref Range Status 02/12/2018 trace Neg mg/dL Final Urobilinogen, Urine Date Value Ref Range Status 05/13/2014 normal Normal (<1.1) EU Final Leukocytes Date Value Ref Range Status 05/13/2014 small Neg Final WBC, Urine Date Value Ref Range Status 11/27/2017 0-5 0 - 5 /HPF 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 However, she is having increased asthma flares which are likely due to the sensation of mechanical compression from her gravid abdomen. It is reasonable to try an an inhaled steroid with long acting beta agonist to better control her symptoms. In addition, we discussed the addition of omalizumab in the future if such symptoms were to persist after childbirth. She and Dr. Mohan Dee will revisit this discussion after the of her son. Available laboratories were reviewed with the patient. I spent 40 minutes in the visit, with more than 50% of the total face to face time of the visit in the counseling/coordination of care. PLAN: Start Advair (Fluticasone-Salmoterol HFA 230-21 mcg/actuation inhaler) BID Pending studies/orders: none Consults: none Patient instructed to notify provider of any changes in medical condition. Follow-up: as needed Evangelina Kowalski MD Case discussed with staff bead stringer Dr. Omar Dee RHEUMATOLOGY STAFF: I have reviewed the history and physical examination obtained and documented by the fellow and I personally participated in the woods components. I have discussed the case and management of the patient's care with the fellow. [place]' note was revised, edited and confirmed. Assessment and plan discussed with patient Patricia Child MD, MPH Authenticated by responsible provider. CNOV Observed: 02/22/2018 Status: COMPLETED Source: [place] 9:30 AM [facility] REPOSITORY [facility] DENIS QU[facility] ([id number]) 1985 F Date Time Provider Department 02/22/18 9:30 AM LAB [address] During your visit today, we recorded the following information about you: Katina Morris RN 02/22/2018 9:26 AM Signed DATE: February 22, 2018 PT. NAME: Denis Quan [facility]#: [id number] IRB #: [id number] PROTOCOL: Rare Diseases Clinical Research Network [facility] Longitudinal Protocol for Churg-Santosh Syndrome Clinical Research Consortium Principle Real Estate Asset Manager: Dr. Roberts [facility] contact center representative for study related questions: Carlos Luis Visit #: 11 year The above subject has returned for a follow up visit for study. Subject continues to give consent for participation and for procedures related to study Yes Were there changes made to the informed consent since the last visit? No If yes, were changes reviewed and explained to subject? N/A Was a new copy of the informed consent signed, placed in the chart, placed in the study file and was a copy given to the patient? N/A Butterfly used in left antecubital area. Time: 0910 Blood drawn with vacutainer and labs drawn per protocol. Butterfly removed after blood draw and secured with sterile gauze. Patient tolerated procedure well. Clinicals drawn: No Urine collected per protocol. Stipend provided: Yes Katina Morris RN Referring Provider: SELF [[id number]] Allergies As of Date: 02/22/2018 Noted Allergy Reaction CAT HAIR EXTRACT 12/03/2004 DUST MITES 12/03/2004 ITRACONAZOLE 12/03/2004 9 - Itching LEVOFLOXACIN 12/03/2004 2 - Rash MOLD 12/03/2004 SULFA (SULFONAMIDE ANTIBIOTICS) 09/28/2005 2 - Rash Date Reviewed: 02/12/2018 Reviewed by: Aniyah Shaw - Fully Assessed Reason for Visit: Research [[id number]] Cmt: IRB [id number] Primary Visit Diagnosis:Examination of participant in clinical trial [Z00.6] Prescriptions as of 02/22/2018 Sig: BUPROPION XL 150 MG TAB Take 1 tablet by mouth once d* BUDESONIDE 0.5 MG/2 ML SUSPEN* use 2 mL twice daily. Use 1ml* VITAMIN,CALCIUM,MINE* Take 1 tablet by mouth. PROBIOTIC COMPLEX ORAL Take by mouth. ALBUTEROL SULFATE HFA 90 MCG/* Inhale 2 Puffs as instructed * [place]-3 FATTY ACIDS-VITAMIN E* Take 1 capsule by mouth twice* B-COMPLEX WITH VITAMIN C TABL* Take one(1) tablet daily. Problem List As Of Date 02/22/2018 Noted Resolved Asthma [J45.909] More... 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 Sinusitis, chronic [J32.9] INVALID FOR* PEANUT CLEANER STEROIDS [ZVR3406] INVALID FOR* Urinary tract infection, site not specified [N3*INVALID FOR*10/31/2012 Churg-Santosh syndrome (HCC) [M30.1] INVALID FOR* Priority: Moderate More... UTI (lower urinary tract infection) [N39.0] INVALID FOR* Chest pain [R07.9] INVALID FOR*01/20/2014 Palpitations [R00.2] INVALID FOR*06/21/2017 Family history of hyperlipidemia [Z83.438] INVALID FOR*06/21/2017 Hypercholesterolemia [E78.00] INVALID FOR* Headache [R51] INVALID FOR* Priority: Severe More... Neutropenic fever [D70.9, R50.81] INVALID FOR* Priority: Very Severe More... Mouth ulcers [K12.1] INVALID FOR*06/21/2017 Priority: Severe More... Thrombocytosis [D47.3] INVALID FOR*07/01/2013 Priority: Mild More... Nausea [R11.0] INVALID FOR*06/21/2017 More... Oral thrush [B37.0] INVALID FOR* More... MILES (acute kidney injury) [N17.9] INVALID FOR* More... DISPOSITION AND FOLLOW-UP [V999.01] INVALID FOR*06/21/2017 More... Dyspareunia [BAB6410] INVALID FOR*06/21/2017 Vaginismus [N94.2] INVALID FOR* Vitamin D deficiency [E55.9] Other and unspecified hyperlipidemia [E78.5] HSDD [F52.0] Dysmenorrhea [N94.6] 06/21/2017 More... Muscle spasm [M62.838] INVALID FOR*06/21/2017 Eosinophilia [D72.1] INVALID FOR* Epigastric pain [R10.13] INVALID FOR*06/21/2017 Abnormal weight loss [R63.4] INVALID FOR* Poor appetite [R63.0] INVALID FOR* History of depression [Z86.59] INVALID FOR* More... History of abdominal pain [Z87.898] INVALID FOR* More... History of recurrent UTI (urinary tract infecti*INVALID FOR* More... Encounter Status:Closed by RISSA BONILLA, KATINA Turner on 02/22/18 PROGRESS Observed: 02/22/2018 Status: COMPLETED Source: [place] 9:25 AM [facility] REPOSITORY [facility] ID: [id number] Author: Katina Morris RN Service: (none) Author Type: (none) Type: Progress Notes Filed: 02/22/2018 9:26 AM Note Text: DATE: February 22, 2018 PT. NAME: Denis Quan [facility]#: [id number] IRB #: [id number] PROTOCOL: Rare Diseases Clinical Research Network [facility] Longitudinal Protocol for Churg-Santosh Syndrome Clinical Research Consortium Principle Real Estate Asset Manager: Dr. Roberts [facility] contact center representative for study related questions: Carlos Luis Visit #: 11 year The above subject has returned for a follow up visit for study. Subject continues to give consent for participation and for procedures related to study Yes Were there changes made to the informed consent since the last visit? No If yes, were changes reviewed and explained to subject? N/A Was a new copy of the informed consent signed, placed in the chart, placed in the study file and was a copy given to the patient? N/A Butterfly used in left antecubital area. Time: 0910 Blood drawn with vacutainer and labs drawn per protocol. Butterfly removed after blood draw and secured with sterile gauze. Patient tolerated procedure well. Clinicals drawn: No Urine collected per protocol. Stipend provided: Yes Katina Morris RN PROGRESS Observed: 02/19/2018 Status: COMPLETED Source: [place] 9:08 AM [facility] REPOSITORY HNO ID: [id number] Author: Elida Ding Service: (none) Author Type: Physician Type: Progress Notes Filed: 02/19/2018 9:09 AM Note Text: A shelby intrauterine The size is AGA Estimated Date of Delivery: 04/09/18 EGA = 33w0d The anatomy appears normal in the areas visualized. The amniotic fluid volume is normal. There is no evidence of effusions and/ or hydrops. The placenta is fubdal. RECOMMENDATIONS: - Self-assessment of kick counts - Follow up ultrasound as clinically indicated COMP METABOLIC PANEL Collected: 02/12/2018 Status: F Source: [place] 10:02 AM [facility] REPOSITORY TYPE CODE TESTS RESULT OUT OF REFERENCE UNITS RANGE LAB TP 6.3-8.0 g/dL Low Protein, Total 6.1 LAB ALB 3.9-4.9 g/dL Low Albumin 3.5 LAB CA 8.5-10.2 mg/dL Calcium, Total 8.6 LAB TBIL 0.2-1.3 mg/dL Low Bilirubin, Total <0.2 LAB ALKP 34-123 U/L Alkaline Phosphatase 111 LAB AST 13-35 U/L AST 18 LAB GLU 74-99 mg/dL Glucose 77 Result Comment: The [place] Diabetes Association (ADA) provides guidance for cutoff values for fasting glucose and random glucose. The ADA defines fasting as no caloric intake for at least 8 hours. Fas ting plasma glucose results between 100 to 125 mg/dL indicate increased risk for diabetes (prediabetes). Fasting plasma glucose results greater than or equal to 126 mg/dL meet the criteria for diagnosis of diabetes. In the absence of unequivocal hyperglycemia, results should be confirmed by repeat testing. In a patient with classic symptoms of hyperglycemia or hyperglycemic crisis, random plasma glucose results greater than or equal to 200 mg/dL meet the criteria for diagnosis of diabetes. Reference: Standards of Medical Care in Diabetes 2016, [place] Diabetes Association. Diabetes Care. 2016.39(Suppl 1). LAB BUN 7-21 mg/dL BUN 7 LAB CRET 0.58-0.96 mg/dL Creatinine Low 0.54 LAB NA 136-144 mmol/L Sodium 139 LAB K 3.7-5.1 mmol/L Potassium 4.0 LAB CL 97-105 mmol/L Chloride 105 LAB CO2 22-30 mmol/L CO2 22 LAB AGAP 9-18 mmol/L Anion Gap 12 LAB ALT 7-38 U/L ALT 10 LAB GFRAA eGFR- Amer. >60 LAB GFRNAA . eGFR-All Other Races >60 Result Comment: eGFR (Estimated GFR) Units of measure: mL/min/1.73 meters squared eGFR is derived from the reexpressed MDRD Study equation using the following parameters: serum creatinine, age, gender and race. The creatinine assay has been calibrated to be traceable to IDMS. An eGFR <60 mL/min/1.73m2 for >3 months is consistent with chronic kidney disease. Refer to KDOQI guidelines for clinical interpretation. In patients with unstable renal function, e.g. those with acute kidney injury, the eGFR may not accurately reflect actual GFR. Performed By: #### CMP, CBCDIF, WSR #### [facility] [address] [place] [address] CBC AND DIFFERENTIAL Collected: 02/12/2018 Status: F Source: [place] 10:02 AM [facility] REPOSITORY TYPE CODE TESTS RESULT OUT OF REFERENCE UNITS RANGE LAB WBC 3.70-11.00 k/uL WBC 10.96 LAB RBC 3.90-5.20 m/uL Low RBC 3.86 LAB HGB 11.5-15.5 g/dL Hemoglobin 12.4 LAB HCT 36.0-46.0 % Hematocrit 36.6 LAB MCV 80.0-100.0 fL MCV 94.8 LAB MCH 26.0-34.0 pG MCH 32.1 LAB MCHC 30.5-36.0 g/dL MCHC 33.9 LAB RDWCV 11.5-15.0 % RDW-CV 12.4 LAB PLTCT 150-400 k/uL Platelet Count 280 LAB MPV 9.0-12.7 fL MPV 10.2 LAB ANEUT % Neut% 72.4 LAB AANEUT 1.45-7.50 k/uL Abs Neut High 7.93 LAB ALYMP % Lymph% 18.8 LAB AALYMP 1.00-4.00 k/uL Abs Lymph 2.06 LAB AMONO % [place]% 4.2 LAB AAMONO <0.87 k/uL Abs [place] 0.46 LAB AEOS % Eosin% 3.8 LAB AAEOS <0.46 k/uL Abs Eosin 0.42 LAB ABASO % Baso% 0.8 LAB AABASO <0.11 k/uL Abs Baso 0.09 LAB AUNRBC 0 /100 WBC NRBCs 0.0 LAB ABNRBC <0.01 k/uL Absolute nRBC <0.01 LAB DTYP DTYPE Auto Diff Performed By: #### CMP, CBCDIF, WSR #### [facility] [employer] [address] [place] [id number] SED RATE WESTERGREN Collected: 02/12/2018 Status: F Source: [place] 10:02 AM [facility] REPOSITORY TYPE CODE TESTS RESULT OUT OF REFERENCE UNITS RANGE LAB WSR 0-20 mm/hr Sed Rate High [place] 32 Performed By: #### CMP, CBCDIF, WSR #### [facility] [employer] [address] [place], [place] [address] PROGRESS Observed: 02/01/2018 Status: COMPLETED Source: [place] 3:54 PM [facility] REPOSITORY HNO ID: [id number] Author: Ilana Vu Service: (none) Author Type: Physician Type: Progress Notes Filed: 02/01/2018 3:56 PM Note Text: This note is formatted with the Assessment and Plan first and Subjective and Objective sections to follow. Assessment: 1. Chronic pansinusitis 2. Churg-Santosh syndrome Plan: The patient was looking quite well today with regards to her sinuses. Nasal endoscopy showed no evidence of polyps or purulence. She will continue with her budesonide nasal irrigations. I will see her back in 6 months and as needed. Of note, the patient is and is due in mid March. Subjective: Ms. DENIS QUAN is a 32 year old female returning for Chronic sinusitis. Since last seen, the patient is doing quite well. She is 32 weeks currently and feeling well. The patient is using her twice a day budesonide nasal irrigations. She is having postnasal drip but not pulling up discolored mucus ALLERGIES Allergen Reactions - Cat Hair Extract - Dust Mites - Itraconazole Itching - Levofloxacin Rash - Mold - Sulfa (Sulfonamide * Rash Outpatient Medications Prior to Visit: buPROPion XL (WELLBUTRIN XL) 150 mg 24 hr tablet Take 1 tablet by mouth once daily. Disp: 30 tablet Rfl: 2 budesonide (PULMICORT) 0.5 mg/2 mL nebulizer solution use 2 mL twice daily. Use 1ml in each nostril twice daily as directed. Disp: 60 Ampule Rfl: 11 [place]offoefv-An-Phu-Fe-FA ( VITAMIN) tab Take 1 tablet by mouth. Disp: Rfl: lactobacillus combo no.6 (PROBIOTIC COMPLEX ORAL) Take by mouth. Disp: Rfl: albuterol HFA (PROAIR HFA) 90 mcg/actuation inhaler Inhale 2 Puffs as instructed every 6 hours as needed for Wheezing/Shortness of Breath. Disp: 2 Inhaler Rfl: 11 [place]-3 Fatty Acids-Vitamin E (FISH OIL) 1,000 mg cap Take 1 capsule by mouth twice daily. Disp: Rfl: B-COMPLEX WITH VITAMIN C TAB Take one(1) tablet daily. Disp: Rfl: 0 No facility-administered medications prior to visit. Objective: Nose: Anterior rhinoscopy revealed a midline septum. The turbinates were mildly congested. The mucosa was pink and moist without signs of infection. The airway was adequate. [place]av[place]/Oropharynx: There were no lesions to visualization or palpation of the lips, cheeks, gums, floor of mouth, tongue, hard and soft palate, tonsillar pillars or posterior pharyngeal wall. Neck: Papation of the neck revealed no adenopathy, salivary gland masses or asymmetry, or thyroid masses or enlargement. Procedure In order to assess the patient's complaint of nasal polyps, nasal endoscopy was performed. After spraying the nose with topical 2% lidocaine and 0.5% neosynephrine the flexible scope was passed. Findings: Bilateral middle meatuses were clean with no evidence of pus or polyps Ilana Vu MD CNOV Observed: 02/01/2018 Status: COMPLETED Source: [place] 3:45 PM [facility] RE[facility] Office Visit ([facility]) DENIS QUAN ([id number]) 1985 F Date Time Provider Department 02/01/18 3:45 PM ILANA VU [facility] During your visit today, we recorded the following information about you: Tam Velez 02/01/2018 3:45 PM Signed Tobacco Use: Never Was smoking cessation packet given? N/A - Patient is a non- smoker or quit >1 year ago. Was a referral initiated?N/A Patient is a non-smoker Ilana Vu MD 02/01/2018 3:56 PM Signed This note is formatted with the Assessment and Plan first and Subjective and Objective sections to follow. Assessment: 1. Chronic pansinusitis 2. Churg-Santosh syndrome Plan: The patient was looking quite well today with regards to her sinuses. Nasal endoscopy showed no evidence of polyps or purulence. She will continue with her budesonide nasal irrigations. I will see her back in 6 months and as needed. Of note, the patient is and is due in mid March. Subjective: Ms. DENIS QUAN is a 32 year old female returning for Chronic sinusitis. Since last seen, the patient is doing quite well. She is 32 weeks currently and feeling well. The patient is using her twice a day budesonide nasal irrigations. She is having postnasal drip but not pulling up discolored mucus ALLERGIES Allergen Reactions - Cat Hair Extract - Dust Mites - Itraconazole Itching - Levofloxacin Rash - Mold - Sulfa (Sulfonamide * Rash Outpatient Medications Prior to Visit: buPROPion XL (WELLBUTRIN XL) 150 mg 24 hr tablet Take 1 tablet by mouth once daily. Disp: 30 tablet Rfl: 2 budesonide (PULMICORT) 0.5 mg/2 mL nebulizer solution use 2 mL twice daily. Use 1ml in each nostril twice daily as directed. Disp: 60 Ampule Rfl: 11 Ygbxbmcj-Fh-Nkv-Fe-FA ( VITAMIN) tab Take 1 tablet by mouth. Disp: Rfl: lactobacillus combo no.6 (PROBIOTIC COMPLEX ORAL) Take by mouth. Disp: Rfl: albuterol HFA (PROAIR HFA) 90 mcg/actuation inhaler Inhale 2 Puffs as instructed every 6 hours as needed for Wheezing/Shortness of Breath. Disp: 2 Inhaler Rfl: 11 [place]-3 Fatty Acids-Vitamin E (FISH OIL) 1,000 mg cap Take 1 capsule by mouth twice daily. Disp: Rfl: B-COMPLEX WITH VITAMIN C TAB Take one(1) tablet daily. Disp: Rfl: 0 No facility-administered medications prior to visit. Objective: Nose: Anterior rhinoscopy revealed a midline septum. The turbinates were mildly congested. The mucosa was pink and moist without signs of infection. The airway was adequate. [place]/Oropharynx: There were no lesions to visualization or palpation of the lips, cheeks, gums, floor of mouth, tongue, hard and soft palate, tonsillar pillars or posterior pharyngeal wall. Neck: Papation of the neck revealed no adenopathy, salivary gland masses or asymmetry, or thyroid masses or enlargement. Procedure In order to assess the patient's complaint of nasal polyps, nasal endoscopy was performed. After spraying the nose with topical 2% lidocaine and 0.5% neosynephrine the flexible scope was passed. Findings: Bilateral middle meatuses were clean with no evidence of pus or polyps Ilana Vu MD Referring Provider: SELF [200] Allergies As of Date: 02/01/2018 Noted Allergy Reaction CAT HAIR EXTRACT 12/03/2004 DUST MITES 12/03/2004 ITRACONAZOLE 12/03/2004 9 - Itching LEVOFLOXACIN 12/03/2004 2 - Rash MOLD 12/03/2004 SULFA (SULFONAMIDE ANTIBIOTICS) 09/28/2005 2 - Rash Date Reviewed: 02/01/2018 Reviewed by: Ilana Vu - Fully Assessed Reason for Visit: Established Patient [[id number]] Cmt: follow up Primary Visit Diagnosis:Chronic pansinusitis [J32.4] Other Visit Diagnosis:Churg-Santosh syndrome (HCC) [M30.1] Prescriptions as of 02/01/2018 Sig: BUPROPION XL 150 MG TAB Take 1 tablet by mouth once d* BUDESONIDE 0.5 MG/2 ML SUSPEN* use 2 mL twice daily. Use 1ml* VITAMIN,CALCIUM,MINE* Take 1 tablet by mouth. PROBIOTIC COMPLEX ORAL Take by mouth. ALBUTEROL SULFATE HFA 90 MCG/* Inhale 2 Puffs as instructed * OMEGA-3 FATTY ACIDS-VITAMIN E* Take 1 capsule by mouth twice* B-COMPLEX WITH VITAMIN C TABL* Take one(1) tablet daily. Problem List As Of Date 02/01/2018 Noted Resolved Asthma [J45.909] More... 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 Sinusitis, chronic [J32.9] INVALID FOR* PEANUT CLEANER STEROIDS [CXD3039] INVALID FOR* Urinary tract infection, site not specified [N3*INVALID FOR*10/31/2012 Churg-Santosh syndrome (HCC) [M30.1] INVALID FOR* Priority: Moderate More... UTI (lower urinary tract infection) [N39.0] INVALID FOR* Chest pain [R07.9] INVALID FOR*01/20/2014 Palpitations [R00.2] INVALID FOR*06/21/2017 Family history of hyperlipidemia [Z83.438] INVALID FOR*06/21/2017 Hypercholesterolemia [E78.00] INVALID FOR* Headache [R51] INVALID FOR* Priority: Severe More... Neutropenic fever [D70.9, R50.81] INVALID FOR* Priority: Very Severe More... Mouth ulcers [K12.1] INVALID FOR*06/21/2017 Priority: Severe More... Thrombocytosis [D47.3] INVALID FOR*07/01/2013 Priority: Mild More... Nausea [R11.0] INVALID FOR*06/21/2017 More... Oral thrush [B37.0] INVALID FOR* More... MILES (acute kidney injury) [N17.9] INVALID FOR* More... DISPOSITION AND FOLLOW-UP [V999.01] INVALID FOR*06/21/2017 More... Dyspareunia [VEP6622] INVALID FOR*06/21/2017 Vaginismus [N94.2] INVALID FOR* Vitamin D deficiency [E55.9] Other and unspecified hyperlipidemia [E78.5] HSDD [F52.0] Dysmenorrhea [N94.6] 06/21/2017 More... Muscle spasm [M62.838] INVALID FOR*06/21/2017 Eosinophilia [D72.1] INVALID FOR* Epigastric pain [R10.13] INVALID FOR*06/21/2017 Abnormal weight loss [R63.4] INVALID FOR* Poor appetite [R63.0] INVALID FOR* History of depression [Z86.59] INVALID FOR* More... History of abdominal pain [Z87.898] INVALID FOR* More... History of recurrent UTI (urinary tract infecti*INVALID FOR* More... Visit Notes: >> Tam Velez Gloria Feb 01, 2018 3:45 PM Status: Signed Tobacco Use: Never Was smoking cessation packet given? N/A - Patient is a non- smoker or quit >1 year ago. Was a referral initiated?N/A Patient is a non-smoker Disposition: Return in about 6 months (around 08/02/2018). Follow-up and Disposition History Recorded Encounter Status:Closed by ILANA VU MD on 02/01/18 50G, 1HR GEST. Collected: 01/15/2018 Status: F [facility] [place] REPOSITORY TYPE CODE TESTS RESULT OUT OF REFERENCE UNITS RANGE LAB GLUP 74-134 mg/dL Glucose 74 Screen, Preg Result Comment: [place] Congress of Obstetricians and Gynecologists (Hutson/Coustan) guidelines state a gestational diabetes mellitus positive screen is made, in women not previously diagnosed with overt diabetes, when the 1 hr plasma glucose level is equal to or above 140 mg/dL. The [facility] recommends a 135 mg/dL cutoff. Performed By: #### GLTGST #### [facility] [address] [place], [place] [address] CBC AND DIFFERENTIAL Collected: 01/15/2018 Status: F Source: [place] 9:21 AM [facility] [place] REPOSITORY TYPE CODE TESTS RESULT OUT OF REFERENCE UNITS RANGE LAB WBC 3.70-11.00 k/uL WBC High 11.60 LAB RBC 3.90-5.20 m/uL RBC 3.95 LAB HGB 11.5-15.5 g/dL Hemoglobin 12.9 LAB HCT 36.0-46.0 % Hematocrit 39.7 LAB MCV 80.0-100.0 fL MCV High 100.5 LAB MCH 26.0-34.0 pG MCH 32.7 LAB MCHC 30.5-36.0 g/dL MCHC 32.5 LAB RDWCV 11.5-15.0 % RDW-CV 12.3 LAB PLTCT 150-400 k/uL Platelet Count 312 LAB MPV 9.0-12.7 fL MPV 10.1 LAB ANEUT % Neut% 75.5 LAB AANEUT 1.45-7.50 k/uL Abs Neut High 8.76 LAB ALYMP % Lymph% 16.9 LAB AALYMP 1.00-4.00 k/uL Abs Lymph 1.96 LAB AMONO % [place]% 3.6 LAB AAMONO <0.87 k/uL Abs [place] 0.42 LAB AEOS % Eosin% 3.4 LAB AAEOS <0.46 k/uL Abs Eosin 0.39 LAB ABASO % Baso% 0.6 LAB AABASO <0.11 k/uL Abs Baso 0.07 LAB AUNRBC 0 /100 WBC NRBCs 0.0 LAB ABNRBC <0.01 k/uL Absolute nRBC <0.01 LAB DTYP DTYPE Auto Diff Performed By: #### CBCDIF #### [facility] [address] [address] PROGRESS Observed: 01/15/2018 Status: COMPLETED Source: [place] 8:27 AM [facility] REPOSITORY HNO ID: [id number] Author: Nora Gonzalez Ma Service: (none) Author Type: (none) Type: Progress Notes Filed: 01/15/2018 9:04 AM Note Text: 32 year old female here for INACTIVATED INFLUENZA VACCINE. [id number] Season Patient is identified by name and date of : Yes [] CONTRAINDICATIONS color enhanced section Age less than 6 months? No Allergy to eggs, chicken, chicken feathers, or chicken dander? No Allergy to thimerosal (a preservative) or formaldehyde, gelatin? No History of severe reaction to any vaccine component or a previous dose of influenza vaccination? No History of Guillain-Corona Syndrome within 6 weeks after a previous influenza vaccine? No Patient is not moderately or severely ill? No Current temperature greater or equal to 100.4F? No History of Bone Marrow Transplant prior 6 months or solid organ transplant in the past 3 months ? No History of fainting after a prior injection or medical procedure? No- ? If patient has fainted in the past, the CDC recommends sitting or lying down for 15 minutes after the vaccination. [] VERIFICATION color enhanced section Was the answer Yes for any of the above contraindications? No contraindications present. Acceptable to proceed with vaccine. Patient/guardian agrees the above answers are true to the best of their knowledge? Yes Flu vaccine information sheet given? Yes See immunization activity in [facility] for details of immunizations adminstered today. Patient age: [age] year old For The 5294-8496 Flu Season 6-35 months old: Fluzone 0.25 ml - IM (Preservative Free) 3 years of age: Fluzone 0.5 ml - IM (Preservative Free) 3 years and older: Fluzone 0.5 ml- IM-(with Preservatives) 65+ years old: 2-49 years old Fluzone High-Dose 0.5 ml - IM (Preservative Free) FLUMIST- intranasal REMEMBER: If patient is less than 9 years of age and this is the first vaccine of Influenza to be received in any flu season, they should receive a second dose in one months time. Observed: 12/26/2017 Status: F Source: [place] URINE CULTURE 4:15 PM [facility] REPOSITORY Sp. Request/Comment: - Specimen received in preservative Culture Result - No growth (<1,000 CFU/ml) Performed By: #### URCUL #### [facility] [employer] [address] [place], [place] [address] PROGRESS Observed: 11/27/2017 Status: COMPLETED Source: [place] 10:37 AM [facility] REPOSITORY HNO ID: [id number] Author: Elida Ding Service: (none) Author Type: Physician Type: Progress Notes Filed: 11/27/2017 10:41 AM Note Text: A shelby? fetus in utero with symmetric measurements Adequate growth (AGA). Estimated Date of Delivery: 04/09/18 EGA = 21w0d The anatomy appears normal. There are no evident malformations and /or effusions. No genetic markers are noted. The amniotic fluid volume is within normal limits. The sensitivity of ultrasound in the detection of malformations overall is approximately 35%. RECOMMENDATIONS: - Follow up ultrasound as clinically indicated URINALYSIS Collected: 11/27/2017 Status: F Source: [place] 10:33 AM [facility] REPOSITORY TYPE CODE TESTS RESULT OUT OF RANGE REFERENCE UNITS LAB UCOL Yellow Color Yellow LAB [facility] Clear Clarity Abnormal Cloudy Alert LAB UGLUC Negative mg/dL Glucose, Urine Negative LAB UBIL Negative Bilirubin, Urine Negative LAB UKET Negative Ketones, Urine Negative LAB USPG 1.005-1.030 Specific Mather, Ur 1.019 LAB UHGB Negative Hemoglobin/Blood, Negative Ur LAB UPH 4.5-8.0 pH 6.0 LAB UPROT Negative mg/dL Protein, Urine Negative LAB UUROB Normal Urobilinogen Normal LAB UNITR Negative Nitrites Negative LAB ULKEST Negative Leukest Abnormal 3+ Alert LAB UCOM Comments SEE COMMENT Result Comment: Microscopic Examination Performed LAB UWBC 0-5 /HPF WBC 0-5 LAB URBC 0-3 /HPF Abnormal RBC Alert 3-5 LAB UEPI /HPF Epithelial Cells SEE COMMENT Result Comment: Few Squamous Epithelial Cells LAB UMCOM Urine SEE Kapil Comment COMMENT Result Comment: Result rechecked. Performed By: #### UA #### [facility] [employer] [address] [place], [place] [id number] CBC AND DIFFERENTIAL Collected: 11/27/2017 Status: F Source: [place] 10:22 AM [facility] REPOSITORY TYPE CODE TESTS RESULT OUT OF REFERENCE UNITS RANGE LAB WBC 3.70-11.00 k/uL WBC High 11.76 LAB RBC 3.90-5.20 m/uL RBC 4.02 LAB HGB 11.5-15.5 g/dL Hemoglobin 12.9 LAB HCT 36.0-46.0 % Hematocrit 39.8 LAB MCV 80.0-100.0 fL MCV 99.0 LAB MCH 26.0-34.0 pG MCH 32.1 LAB MCHC 30.5-36.0 g/dL MCHC 32.4 LAB RDWCV 11.5-15.0 % RDW-CV 12.8 LAB PLTCT 150-400 k/uL Platelet Count 319 LAB MPV 9.0-12.7 fL MPV 10.2 LAB ANEUT % Neut% 79.9 LAB AANEUT 1.45-7.50 k/uL Abs Neut High 9.40 LAB ALYMP % Lymph% 14.9 LAB AALYMP 1.00-4.00 k/uL Abs Lymph 1.75 LAB AMONO % [place]% 3.7 LAB AAMONO <0.87 k/uL Abs [place] 0.43 LAB AEOS % Eosin% 1.1 LAB AAEOS <0.46 k/uL Abs Eosin 0.13 LAB ABASO % Baso% 0.4 LAB AABASO <0.11 k/uL Abs Baso 0.05 LAB AUNRBC 0 /100 WBC NRBCs 0.0 LAB ABNRBC <0.01 k/uL Absolute nRBC <0.01 LAB DTYP DTYPE Auto Diff Performed By: #### CBCRAMILAF WSR, CMP #### [facility] [employer] [address] [place], [place] [address] SED RATE WESTERGREN Collected: 11/27/2017 Status: F Source: [place] 10:22 AM [facility] REPOSITORY TYPE CODE TESTS RESULT OUT OF REFERENCE UNITS RANGE LAB WSR 0-20 mm/hr Sed Rate Westergren 20 Performed By: #### CBCDIF, WSR, CMP #### [facility] [employer] [address] [place], [place] [address] COMP METABOLIC PANEL Collected: 11/27/2017 Status: F Source: [place] 10:22 AM [facility] REPOSITORY TYPE CODE TESTS RESULT OUT OF REFERENCE UNITS RANGE LAB TP 6.3-8.0 g/dL Protein, Total 6.8 LAB ALB 3.9-4.9 g/dL Albumin 4.1 LAB CA 8.5-10.2 mg/dL Calcium, Total 10.0 LAB TBIL 0.2-1.3 mg/dL Low Bilirubin, Total <0.2 LAB ALKP 32-117 U/L Alkaline Phosphatase 76 LAB AST 13-35 U/L AST 20 LAB GLU 74-99 mg/dL Glucose 77 Result Comment: The [place] Diabetes Association (ADA) provides guidance for cutoff values for fasting glucose and random glucose. The ADA defines fasting as no caloric intake for at least 8 hours. Fas ting plasma glucose results between 100 to 125 mg/dL indicate increased risk for diabetes (prediabetes). Fasting plasma glucose results greater than or equal to 126 mg/dL meet the criteria for diagnosis of diabetes. In the absence of unequivocal hyperglycemia, results should be confirmed by repeat testing. In a patient with classic symptoms of hyperglycemia or hyperglycemic crisis, random plasma glucose results greater than or equal to 200 mg/dL meet the criteria for diagnosis of diabetes. Reference: Standards of Medical Care in Diabetes 2016, [place] Diabetes Association. Diabetes Care. 2016.39(Suppl 1). LAB BUN 7-21 mg/dL BUN 9 LAB CRET 0.58-0.96 mg/dL Creatinine 0.59 LAB NA 136-144 mmol/L Sodium Low 135 LAB K 3.7-5.1 mmol/L Potassium 4.3 LAB CL 97-105 mmol/L Chloride 99 LAB CO2 22-30 mmol/L CO2 22 LAB AGAP 9-18 mmol/L Anion Gap 14 LAB ALT 7-38 U/L ALT 11 LAB GFRAA eGFR- Amer. >60 LAB GFRNAA . eGFR-All Other Races >60 Result Comment: eGFR (Estimated GFR) Units of measure: mL/min/1.73 meters squared eGFR is derived from the reexpressed MDRD Study equation using the following parameters: serum creatinine, age, gender and race. The creatinine assay has been calibrated to be traceable to IDMS. An eGFR <60 mL/min/1.73m2 for >3 months is consistent with chronic kidney disease. Refer to KDOQI guidelines for clinical interpretation. In patients with unstable renal function, e.g. those with acute kidney injury, the eGFR may not accurately reflect actual GFR. Performed By: #### CBCDIF, WSR, CMP #### [facility] [address] [place], [place] [address] PROGRESS Observed: 10/31/2017 Status: COMPLETED Source: [place] 10:11 AM [facility] REPOSITORY HNO ID: [id number] Author: Ilana Vu Service: (none) Author Type: Physician Type: Progress Notes Filed: 10/31/2017 10:15 AM Note Text: This note is formatted with the Assessment and Plan first and Subjective and Objective sections to follow. Assessment: 1. Chronic pansinusitis 2. Churg-Santosh syndrome Plan: The patient has no evidence of infection on today's exam. Nasal endoscopy was performed and there is minimal polypoid change in the ethmoid sinuses but no evidence of purulence. Although the patient is complaining of nasal congestion her turbinates appeared well decongested. She may be having rhinitis of . I plan to see her back in 3 months and as needed. Of note, the patient is due April 09. Subjective: Ms. DENIS QUAN is a 32 year old female returning for Chronic sinusitis. Since last seen, the patient notes that she is having increasing amounts of congestion. Her sense of smell is decreasing as well as her sense of taste. The patient is not having purulent discharge. The patient is 4/2 months . ALLERGIES Allergen Reactions - Cat Hair Extract - Dust Mites - Itraconazole Itching - Levofloxacin Rash - Mold - Sulfa (Sulfonamide * Rash Outpatient Medications Prior to Visit: budesonide (PULMICORT) 0.5 mg/2 mL nebulizer solution use 2 mL twice daily. Use 1ml in each nostril twice daily as directed. Disp: 60 Ampule Rfl: 11 Vpexirrn-Fy-Jef-Fe-FA ( VITAMIN) tab Take 1 tablet by mouth. Disp: Rfl: lactobacillus combo no.6 (PROBIOTIC COMPLEX ORAL) Take by mouth. Disp: Rfl: albuterol HFA (PROAIR HFA) 90 mcg/actuation inhaler Inhale 2 Puffs as instructed every 6 hours as needed for Wheezing/Shortness of Breath. Disp: 2 Inhaler Rfl: 11 [place]-3 Fatty Acids-Vitamin E (FISH OIL) 1,000 mg cap Take 1 capsule by mouth twice daily. Disp: Rfl: B-COMPLEX WITH VITAMIN C TAB Take one(1) tablet daily. Disp: Rfl: 0 No facility-administered medications prior to visit. Objective: Nose: Anterior rhinoscopy revealed a midline septum. The turbinates were mildly congested. The mucosa was pink and moist without signs of infection. The airway was adequate. Orocavity/Oropharynx: There were no lesions to visualization or palpation of the lips, cheeks, gums, floor of mouth, tongue, hard and soft palate, tonsillar pillars or posterior pharyngeal wall. Neck: Papation of the neck revealed no adenopathy, salivary gland masses or asymmetry, or thyroid masses or enlargement. Procedure In order to assess the patient's complaint of sinusitis, nasal endoscopy was performed. After spraying the nose with topical 2% lidocaine and 0.5% neosynephrine the flexible scope was passed. Findings: Bilateral middle meatuses were clean with no evidence of pus or polyps Ilana Vu MD CNOV Observed: 10/31/2017 Status: COMPLETED Source: [place] 9:45 AM [facility] REPOSITORY Office Visit (OTOLMN) DENIS QUAN ([id number]) 1985 F Date Time Provider Department 10/31/17 9:45 AM ILANA VU OTOLMN During your visit today, we recorded the following information about you: Patt Medinasinger Patton 10/31/2017 9:40 AM Signed Tobacco Use: Never Was smoking cessation packet given? N/A - Patient is a non- smoker or quit >1 year ago. Was a referral initiated?N/A Patient is a non-smoker Ilana Vu MD 10/31/2017 10:15 AM Signed This note is formatted with the Assessment and Plan first and Subjective and Objective sections to follow. Assessment: 1. Chronic pansinusitis 2. Churg-Santosh syndrome Plan: The patient has no evidence of infection on today's exam. Nasal endoscopy was performed and there is minimal polypoid change in the ethmoid sinuses but no evidence of purulence. Although the patient is complaining of nasal congestion her turbinates appeared well decongested. She may be having rhinitis of . I plan to see her back in 3 months and as needed. Of note, the patient is due April 09. Subjective: Ms. DENIS QUAN is a 32 year old female returning for Chronic sinusitis. Since last seen, the patient notes that she is having increasing amounts of congestion. Her sense of smell is decreasing as well as her sense of taste. The patient is not having purulent discharge. The patient is 4/2 months . ALLERGIES Allergen Reactions - Cat Hair Extract - Dust Mites - Itraconazole Itching - Levofloxacin Rash - Mold - Sulfa (Sulfonamide * Rash Outpatient Medications Prior to Visit: budesonide (PULMICORT) 0.5 mg/2 mL nebulizer solution use 2 mL twice daily. Use 1ml in each nostril twice daily as directed. Disp: 60 Ampule Rfl: 11 Rhfwruzk-Zz-Lts-Fe-FA ( VITAMIN) tab Take 1 tablet by mouth. Disp: Rfl: lactobacillus combo no.6 (PROBIOTIC COMPLEX ORAL) Take by mouth. Disp: Rfl: albuterol HFA (PROAIR HFA) 90 mcg/actuation inhaler Inhale 2 Puffs as instructed every 6 hours as needed for Wheezing/Shortness of Breath. Disp: 2 Inhaler Rfl: 11 [place]-3 Fatty Acids-Vitamin E (FISH OIL) 1,000 mg cap Take 1 capsule by mouth twice daily. Disp: Rfl: B-COMPLEX WITH VITAMIN C TAB Take one(1) tablet daily. Disp: Rfl: 0 No facility-administered medications prior to visit. Objective: Nose: Anterior rhinoscopy revealed a midline septum. The turbinates were mildly congested. The mucosa was pink and moist without signs of infection. The airway was adequate. Orocavity/Oropharynx: There were no lesions to visualization or palpation of the lips, cheeks, gums, floor of mouth, tongue, hard and soft palate, tonsillar pillars or posterior pharyngeal wall. Neck: Papation of the neck revealed no adenopathy, salivary gland masses or asymmetry, or thyroid masses or enlargement. Procedure In order to assess the patient's complaint of sinusitis, nasal endoscopy was performed. After spraying the nose with topical 2% lidocaine and 0.5% neosynephrine the flexible scope was passed. Findings: Bilateral middle meatuses were clean with no evidence of pus or polyps Ilana Vu MD Referring Provider: ILANA VU [[id number]] Allergies As of Date: 10/31/2017 Noted Allergy Reaction CAT HAIR EXTRACT 12/03/2004 DUST MITES 12/03/2004 ITRACONAZOLE 12/03/2004 9 - Itching LEVOFLOXACIN 12/03/2004 2 - Rash MOLD 12/03/2004 SULFA (SULFONAMIDE ANTIBIOTICS) 09/28/2005 2 - Rash Date Reviewed: 10/31/2017 Reviewed by: Ilana Vu - Fully Assessed Reason for Visit: Follow Up [171] Cmt: chronic pansinusitis Primary Visit Diagnosis:Chronic pansinusitis [J32.4] Other Visit Diagnosis:Churg-Santosh syndrome (HCC) [M30.1] Prescriptions as of 10/31/2017 Sig: BUDESONIDE 0.5 MG/2 ML SUSPEN* use 2 mL twice daily. Use 1ml* VITAMIN,CALCIUM,MINE* Take 1 tablet by mouth. PROBIOTIC COMPLEX ORAL Take by mouth. ALBUTEROL SULFATE HFA 90 MCG/* Inhale 2 Puffs as instructed * OMEGA-3 FATTY ACIDS-VITAMIN E* Take 1 capsule by mouth twice* B-COMPLEX WITH VITAMIN C TABL* Take one(1) tablet daily. 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 Sinusitis, chronic [J32.9] INVALID FOR* HALFWAY STEROIDS [GBO2402] INVALID FOR* Urinary tract infection, site not specified [N3*INVALID FOR*10/31/2012 Churg-Santosh syndrome (HCC) [M30.1] INVALID FOR* Priority: Moderate More... UTI (lower urinary tract infection) [N39.0] INVALID FOR* Chest pain [R07.9] INVALID FOR*01/20/2014 Palpitations [R00.2] INVALID FOR*06/21/2017 Family history of hyperlipidemia [Z83.49] INVALID FOR*06/21/2017 Hypercholesterolemia [E78.00] INVALID FOR* Headache [R51] INVALID FOR* Priority: Severe More... Neutropenic fever [D70.9, R50.81] INVALID FOR* Priority: Very Severe More... Mouth ulcers [K12.1] INVALID FOR*06/21/2017 Priority: Severe More... Thrombocytosis [D47.3] INVALID FOR*07/01/2013 Priority: Mild More... Nausea [R11.0] INVALID FOR*06/21/2017 More... Oral thrush [B37.0] INVALID FOR* More... MILES (acute kidney injury) [N17.9] INVALID FOR* More... DISPOSITION AND FOLLOW-UP [V999.01] INVALID FOR*06/21/2017 More... Dyspareunia [LVU2443] INVALID FOR*06/21/2017 Vaginismus [N94.2] INVALID FOR* Vitamin D deficiency [E55.9] Other and unspecified hyperlipidemia [E78.5] HSDD [F52.0] Dysmenorrhea [N94.6] 06/21/2017 More... Muscle spasm [M62.838] INVALID FOR*06/21/2017 Eosinophilia [D72.1] INVALID FOR* Epigastric pain [R10.13] INVALID FOR*06/21/2017 Abnormal weight loss [R63.4] INVALID FOR* Poor appetite [R63.0] INVALID FOR* History of depression [Z86.59] INVALID FOR* More... History of abdominal pain [Z87.898] INVALID FOR* More... History of recurrent UTI (urinary tract infecti*INVALID FOR* More... Visit Notes: >> aPtt Farnsworth Oct 31, 2017 9:39 AM Status: Signed Tobacco Use: Never Was smoking cessation packet given? N/A - Patient is a non- smoker or quit >1 year ago. Was a referral initiated?N/A Patient is a non-smoker Disposition: Return in about 3 months (around 01/31/2018). Follow-up and Disposition History Recorded Encounter Status:Closed by ILANA VU MD on 10/31/17 URINALYSIS Collected: 10/23/2017 Status: F Source: [place] 4:27 PM [facility] [place] REPOSITORY TYPE CODE TESTS RESULT OUT OF REFERENCE UNITS RANGE LAB UCOL Yellow Color Yellow LAB [facility] Clear Clarity Clear LAB UGLUC Negative mg/dL Glucose, Urine Negative LAB UBIL Negative Bilirubin, Urine Negative LAB UKET Negative Ketones, Urine Negative LAB USPG 1.005-1.030 Specific Mather, Ur 1.005 LAB UHGB Negative Hemoglobin/Blood, Negative Ur LAB UPH 4.5-8.0 pH 6.0 LAB UPROT Negative mg/dL Protein, Urine Negative LAB UUROB Normal Urobilinogen Normal LAB UNITR Negative Nitrites Negative LAB ULKEST Negative Leukest Negative LAB UCOM Comments SEE COMMENT Result Comment: Microscopic not warranted LAB UMCOM Urine SEE Kapil Comment COMMENT Result Comment: N/A Performed By: #### UA #### [facility] [employer] [address] [place], [place] [address] SEQUENT SCRN SECOND Collected: 10/23/2017 Status: F Source: [place] [facility] PATIENTS ONLY 4:22 PM [facility] [place] REPOSITORY TYPE CODE TESTS RESULT OUT OF REFERENCE UNITS RANGE LAB SE1PAP MoM 4.29 SE1 RAFITA A LAB SE2AFP MoM 0.61 SE2 AFP LAB SE2HCG MoM 1.25 SE2 hCG LAB SE2UE3 MoM 1.12 SE2 Unconj uE3 LAB SE2INH MoM 1.59 SE2 Dimrc Inhibin A LAB SE1HCG MoM 0.94 SE1 hCG LAB SE2INT Screen Negative SE2 Interp Screen Negative LAB SE2SDN SE2 Scrn Rsk 1:1600 Dn Synd LAB SE2ADN 1:510 SE2 Age Rsk Dn Snyd LAB SE2STS SE2 Scr Rsk <1:89883 Trsmy 13 LAB SE2STR SE2 Scr Rsk <1:19655 Trsmy18 LAB SE2SON SE2 Scr Rsk 1:7000 ONTD LAB SE2RS View Seq Scrn results in Second Trim Scanned Documents link when available. LAB SEQLRV SEQ Staff Reviewed by Review Donavon Lowe MD, PhD ([id number]) Performed By: #### SEQL2 #### [facility] [employer] [address] [place], [place] [address] CBC AND DIFFERENTIAL Collected: 10/23/2017 Status: F Source: [place] 4:21 PM [facility] REPOSITORY TYPE CODE TESTS RESULT OUT OF REFERENCE UNITS RANGE LAB WBC 3.70-11.00 k/uL WBC 9.30 LAB RBC 3.90-5.20 m/uL Low RBC 3.83 LAB HGB 11.5-15.5 g/dL Hemoglobin 12.0 LAB HCT 36.0-46.0 % Hematocrit 36.7 LAB MCV 80.0-100.0 fL MCV 95.8 LAB MCH 26.0-34.0 pG MCH 31.3 LAB MCHC 30.5-36.0 g/dL MCHC 32.7 LAB RDWCV 11.5-15.0 % RDW-CV 13.0 LAB PLTCT 150-400 k/uL Platelet Count 293 LAB MPV 9.0-12.7 fL MPV 10.2 LAB ANEUT % Neut% 74.5 LAB AANEUT 1.45-7.50 k/uL Abs Neut 6.92 LAB ALYMP % Lymph% 18.7 LAB AALYMP 1.00-4.00 k/uL Abs Lymph 1.74 LAB AMONO % [place]% 3.4 LAB AAMONO <0.87 k/uL Abs [place] 0.32 LAB AEOS % Eosin% 2.9 LAB AAEOS <0.46 k/uL Abs Eosin 0.27 LAB ABASO % Baso% 0.5 LAB AABASO <0.11 k/uL Abs Baso 0.05 LAB AUNRBC 0 /100 WBC NRBCs 0.0 LAB ABNRBC <0.01 k/uL Absolute nRBC <0.01 LAB DTYP DTYPE Auto Diff Performed By: #### CBCDIF, CMP, WSR #### [facility] [address] [place], [place] [address] COMP METABOLIC PANEL Collected: 10/23/2017 Status: F Source: [place] 4:21 PM [facility] REPOSITORY TYPE CODE TESTS RESULT OUT OF REFERENCE UNITS RANGE LAB TP 6.3-8.0 g/dL Protein, Total 6.3 LAB ALB 3.9-4.9 g/dL Low Albumin 3.8 LAB CA 8.5-10.2 mg/dL Calcium, Total 9.3 LAB TBIL 0.2-1.3 mg/dL Low Bilirubin, Total <0.2 LAB ALKP 32-117 U/L Alkaline Phosphatase 69 LAB AST 13-35 U/L AST 21 LAB GLU 74-99 mg/dL Glucose 76 Result Comment: The [place] Diabetes Association (ADA) provides guidance for cutoff values for fasting glucose and random glucose. The ADA defines fasting as no caloric intake for at least 8 hours. Fas ting plasma glucose results between 100 to 125 mg/dL indicate increased risk for diabetes (prediabetes). Fasting plasma glucose results greater than or equal to 126 mg/dL meet the criteria for diagnosis of diabetes. In the absence of unequivocal hyperglycemia, results should be confirmed by repeat testing. In a patient with classic symptoms of hyperglycemia or hyperglycemic crisis, random plasma glucose results greater than or equal to 200 mg/dL meet the criteria for diagnosis of diabetes. Reference: Standards of Medical Care in Diabetes 2016, [place] Diabetes Association. Diabetes Care. 2016.39(Suppl 1). LAB BUN 7-21 mg/dL BUN 10 LAB CRET 0.58-0.96 mg/dL Creatinine 0.59 LAB NA 136-144 mmol/L Sodium Low 134 LAB K 3.7-5.1 mmol/L Potassium 3.7 LAB CL 97-105 mmol/L Chloride 99 LAB CO2 22-30 mmol/L CO2 Low 21 LAB AGAP 9-18 mmol/L Anion Gap 14 LAB ALT 7-38 U/L ALT 12 LAB GFRAA eGFR- Amer. >60 LAB GFRNAA . eGFR-All Other Races >60 Result Comment: eGFR (Estimated GFR) Units of measure: mL/min/1.73 meters squared eGFR is derived from the reexpressed MDRD Study equation using the following parameters: serum creatinine, age, gender and race. The creatinine assay has been calibrated to be traceable to IDMS. An eGFR <60 mL/min/1.73m2 for >3 months is consistent with chronic kidney disease. Refer to KDOQI guidelines for clinical interpretation. In patients with unstable renal function, e.g. those with acute kidney injury, the eGFR may not accurately reflect actual GFR. Performed By: #### CBCDIF, CMP, WSR #### [facility] [address], [place] [address] SED RATE SHRUTI Collected: 10/23/2017 Status: F Source: [place] 4:21 PM [facility] REPOSITORY TYPE CODE TESTS RESULT OUT OF REFERENCE UNITS RANGE LAB WSR 0-20 mm/hr Sed Rate Westergren 15 Performed By: #### CBCDIF, CMP, WSR #### [facility] [address], [place] [address] URINALYSIS Collected: 09/25/2017 Status: F Source: [place] 2:43 PM [facility] REPOSITORY TYPE CODE TESTS RESULT OUT OF RANGE REFERENCE UNITS LAB UCOL Yellow Color Yellow LAB [facility] Clear Clarity Clear LAB UGLUC Negative mg/dL Glucose, Urine Negative LAB UBIL Negative Bilirubin, Urine Negative LAB UKET Negative Ketones, Urine Negative LAB USPG 1.005-1.030 Specific Mather, Ur 1.008 LAB UHGB Negative Hemoglobin/Blood, Negative Ur LAB UPH 4.5-8.0 pH 6.0 LAB UPROT Negative mg/dL Protein, Urine Negative LAB UUROB Normal Urobilinogen Normal LAB UNITR Negative Nitrites Negative LAB ULKEST Negative Leukest Abnormal 1+ Alert LAB UCOM Comments SEE COMMENT Result Comment: Microscopic Examination Performed LAB UWBC 0-5 /HPF WBC 0-5 LAB URBC 0-3 /HPF RBC 0-3 LAB UEPI /HPF Epithelial SEE Cells COMMENT Result Comment: Few Squamous Epithelial Cells LAB UMCOM Urine SEE Kapil Comment COMMENT Result Comment: N/A Performed By: #### UA #### [facility] [address], [place] [address] CBC Collected: 09/25/2017 Status: F Source: [place] 2:41 PM [facility] REPOSITORY TYPE CODE TESTS RESULT OUT OF REFERENCE UNITS RANGE LAB WBC 3.70-11.00 k/uL WBC 8.91 LAB RBC 3.90-5.20 m/uL RBC 4.10 LAB HGB 11.5-15.5 g/dL Hemoglobin 12.7 LAB HCT 36.0-46.0 % Hematocrit 37.3 LAB MCV 80.0-100.0 fL MCV 91.0 LAB MCH 26.0-34.0 pG MCH 31.0 LAB MCHC 30.5-36.0 g/dL MCHC 34.0 LAB RDWCV 11.5-15.0 % RDW-CV 11.9 LAB PLTCT 150-400 k/uL Platelet Count 313 LAB MPV 9.0-12.7 fL MPV 9.8 LAB ABSNUC <0.01 k/uL Absolute nRBC <0.01 Performed By: #### CBC, RUBIGG, SYPHGX, HBSAG, HIV12C, SEQL1 #### [facility] [address] [place] [id number] RUBELLA IGG ANTIBODY Collected: 09/25/2017 Status: F Source: [place] 2:41 PM [facility] REPOSITORY TYPE CODE TESTS RESULT OUT OF RANGE REFERENCE UNITS LAB RUBGQL Negative Abnormal Rubella IgG Positive Alert Ab, Qual Result Comment: Sample is considered positive for IgG antibodies to rubella virus. A positive result indicates previous exposure to Rubella virus or vaccination. LAB RUBQNT Index Value Rubella IgG Ab 1.99 Result Comment: Index values are interpreted as follows: Negative specimens <0.90 Equivocol specimens 0.90 to 0.99 Positive specimens >0.99 The magnitude of the measured result is not indicative of the amount of antibody present. Performed By: #### CBC, RUBIGG, SYPHGX, HBSAG, HIV12C, SEQL1 #### [place] [address] SYPHILIS IGG WITH Collected: 09/25/2017 Status: F Source: [facility] 2:41 [facility] REPOSITORY TYPE CODE TESTS RESULT OUT OF REFERENCE UNITS RANGE LAB SYPHQL Nonreactive Syphilis IgG, Nonreactive Qual Result Comment: In conjunction with this result, the immune status of the patient should be evaluated based on their clinical status, related risk factors, and other diagnostic test results. LAB SYPHLG AI Syphilis IgG <0.2 Result Comment: Antibody index is interpreted as follows: Non reactive SPECIMENS <=0.8 Weak reactive SPECIMENS 0.9 to 5.9 Reactive SPECIMENS >=6.0 Performed By: #### CBC, RUBIGG, SYPHGX, HBSAG, HIV12C, SEQL1 #### [facility] [address], [place] [address] HEPATITIS B SURF. AG Collected: 09/25/2017 Status: F Source: [place] 2:41 PM [facility] REPOSITORY TYPE CODE TESTS RESULT OUT OF REFERENCE UNITS RANGE LAB HBSAG Negative Hepatitis B Negative Surf. Ag Performed By: #### CBC, RUBIGG, SYPHGX, HBSAG, HIV12C, SEQL1 #### [place] [id number] [place], [place] [address] HIV 12 COMBO (AG/AB) Collected: 09/25/2017 Status: F Source: [place] 2:41 PM [facility] [place] REPOSITORY TYPE CODE TESTS RESULT OUT OF REFERENCE UNITS RANGE LAB HVAGAB Non Reactive HIV Non Reactive 12 Ag/Ab Result Comment: (NOTE) HIV Information: [place] Rev. Code 3701.243(E): This information has been disclosed to you from confidential records protected from disclosure by state law. You shall make no further disclosure of this information without the specific, written, and informed release of the individual to whom it pertains, or as otherwise permitted by state law. A general authorization for the release of medical or other information is not sufficient for the purpose of the release of HIV test results or diagnoses. Performed By: #### CBC, RUBIGG, SYPHGX, HBSAG, HIV12C, SEQL1 #### [place] [id number] SEQUENT SCRN FIRST Collected: 09/25/2017 Status: F Source: [place] [facility] PATIENTS ONLY 2:41 PM [facility] REPOSITORY TYPE CODE TESTS RESULT OUT OF RANGE REFERENCE UNITS LAB SE1PAP MoM SE1 RAFITA 4.18 A Result Comment: Result rechecked. LAB SE1HCG MoM 0.93 SE1 hCG LAB SE1INT Final result pending second Final trimester sample SE1 Interp result pending second trimester sample LAB SE1SDN <1:30557 SE1 Scrn Rsk Dn Synd LAB SE1ADN 1:380 SE1 Age Rsk Dn Synd LAB SE1STR <1:30046 SE1 Scr Rsk Trsmy18 LAB SE1ATR 1:1600 SE1 Age Rsk Trsmy18 LAB SE1RS View Seq Scrn results in First Trim Scanned Documents link when available. LAB SEQLRV Reviewed SEQ Staff by Dary Feliz, Ph.D. Performed By: #### CBC, RUBIGG, SYPHGX, HBSAG, HIV12C, SEQL1 #### [facility] [employer] [address] [place], [place] [address] SED RATE WESTERGREN Collected: 09/25/2017 Status: F Source: [place] 2:41 PM [facility] REPOSITORY TYPE CODE TESTS RESULT OUT OF REFERENCE UNITS RANGE LAB WSR 0-20 mm/hr Sed Rate Westergren 10 Performed By: #### WSR, CMP #### [facility] [employer] [address], [place] [address] COMP METABOLIC PANEL Collected: 09/25/2017 Status: F Source: [place] 2:41 PM [facility] REPOSITORY TYPE CODE TESTS RESULT OUT OF REFERENCE UNITS RANGE LAB TP 6.3-8.0 g/dL Low Protein, Total 6.1 LAB ALB 3.9-4.9 g/dL Albumin 4.2 LAB CA 8.5-10.2 mg/dL Calcium, Total 9.2 LAB TBIL 0.2-1.3 mg/dL Low Bilirubin, Total <0.2 LAB ALKP 32-117 U/L Alkaline Phosphatase 52 LAB AST 13-35 U/L AST 19 LAB GLU 74-99 mg/dL Glucose 78 Result Comment: The [place] Diabetes Association (ADA) provides guidance for cutoff values for fasting glucose and random glucose. The ADA defines fasting as no caloric intake for at least 8 hours. Fas ting plasma glucose results between 100 to 125 mg/dL indicate increased risk for diabetes (prediabetes). Fasting plasma glucose results greater than or equal to 126 mg/dL meet the criteria for diagnosis of diabetes. In the absence of unequivocal hyperglycemia, results should be confirmed by repeat testing. In a patient with classic symptoms of hyperglycemia or hyperglycemic crisis, random plasma glucose results greater than or equal to 200 mg/dL meet the criteria for diagnosis of diabetes. Reference: Standards of Medical Care in Diabetes 2016, [place] [employer] Association. Diabetes Care. 2016.39(Suppl 1). LAB BUN 7-21 mg/dL BUN 10 LAB CRET 0.58-0.96 mg/dL Creatinine Low 0.52 LAB NA 136-144 mmol/L Sodium 138 LAB K 3.7-5.1 mmol/L Potassium 3.9 LAB CL 97-105 mmol/L Chloride 102 LAB CO2 22-30 mmol/L CO2 22 LAB AGAP 9-18 mmol/L Anion Gap 14 LAB ALT 7-38 U/L ALT 12 LAB GFRAA eGFR- Amer. >60 LAB GFRNAA . eGFR-All Other Races >60 Result Comment: eGFR (Estimated GFR) Units of measure: mL/min/1.73 meters squared eGFR is derived from the reexpressed MDRD Study equation using the following parameters: serum creatinine, age, gender and race. The creatinine assay has been calibrated to be traceable to IDMS. An eGFR <60 mL/min/1.73m2 for >3 months is consistent with chronic kidney disease. Refer to KDOQI guidelines for clinical interpretation. In patients with unstable renal function, e.g. those with acute kidney injury, the eGFR may not accurately reflect actual GFR. Performed By: #### WSR, CMP #### [facility] [employer] [address] [place] [place], [place] [address] TYPE AND SCR,PRENATL Collected: 09/25/2017 Status: F Source: [place] 2:41 PM [facility] REPOSITORY TYPE CODE TESTS RESULT OUT OF REFERENCE UNITS RANGE LAB %ABR O ABO/RH(D) POSITIVE LAB % Antibody NEG Screen Performed By: #### TSPN #### [facility] [employer] [address], [place] [address] PROGRESS Observed: 09/25/2017 Status: COMPLETED Source: [place] 2:14 PM [facility] REPOSITORY HNO ID: [id number] Author: Sylvain Pastrana Service: (none) Author Type: Physician Type: Progress Notes Filed: 09/25/2017 2:15 PM Note Text: Please see ultrasound report for details of this visit. Sylvain Pastrana M.D. CBC AND DIFFERENTIAL Collected: 08/23/2017 Status: F Source: [place] 11:16 AM [facility] REPOSITORY TYPE CODE TESTS RESULT OUT OF REFERENCE UNITS RANGE LAB WBC 3.70-11.00 k/uL WBC 8.13 LAB RBC 3.90-5.20 m/uL RBC 4.14 LAB HGB 11.5-15.5 g/dL Hemoglobin 12.7 LAB HCT 36.0-46.0 % Hematocrit 39.2 LAB MCV 80.0-100.0 fL MCV 94.7 LAB MCH 26.0-34.0 pG MCH 30.7 LAB MCHC 30.5-36.0 g/dL MCHC 32.4 LAB RDWCV 11.5-15.0 % RDW-CV 11.5 LAB PLTCT 150-400 k/uL Platelet Count 313 LAB MPV 9.0-12.7 fL MPV 10.1 LAB ANEUT % Neut% 70.8 LAB AANEUT 1.45-7.50 k/uL Abs Neut 5.74 LAB ALYMP % Lymph% 21.3 LAB AALYMP 1.00-4.00 k/uL Abs Lymph 1.73 LAB AMONO % [place]% 5.2 LAB AAMONO <0.87 k/uL Abs [place] 0.42 LAB AEOS % Eosin% 1.7 LAB AAEOS <0.46 k/uL Abs Eosin 0.14 LAB ABASO % Baso% 1.0 LAB AABASO <0.11 k/uL Abs Baso 0.08 LAB AUNRBC 0 /100 WBC NRBCs 0.0 LAB ABNRBC <0.01 k/uL Absolute nRBC <0.01 LAB DTYP DTYPE Auto Diff Performed By: #### CBCDIF, CMP, WSR #### [facility] [address] [place], [place] [address] COMP METABOLIC PANEL Collected: 08/23/2017 Status: F Source: [place] 11:16 AM [facility] REPOSITORY TYPE CODE TESTS RESULT OUT OF REFERENCE UNITS RANGE LAB TP 6.3-8.0 g/dL Protein, Total 6.8 LAB ALB 3.9-4.9 g/dL Albumin 4.3 LAB CA 8.5-10.2 mg/dL Calcium, Total 9.5 LAB TBIL 0.2-1.3 mg/dL Bilirubin, Total 0.2 LAB ALKP 32-117 U/L Alkaline Phosphatase 54 LAB AST 13-35 U/L AST 26 LAB GLU 74-99 mg/dL Low Glucose 69 Result Comment: The [place] Diabetes Association (ADA) provides guidance for cutoff values for fasting glucose and random glucose. The ADA defines fasting as no caloric intake for at least 8 hours. Fas ting plasma glucose results between 100 to 125 mg/dL indicate increased risk for diabetes (prediabetes). Fasting plasma glucose results greater than or equal to 126 mg/dL meet the criteria for diagnosis of diabetes. In the absence of unequivocal hyperglycemia, results should be confirmed by repeat testing. In a patient with classic symptoms of hyperglycemia or hyperglycemic crisis, random plasma glucose results greater than or equal to 200 mg/dL meet the criteria for diagnosis of diabetes. Reference: Standards of Medical Care in Diabetes 2016, [place] Diabetes Association. Diabetes Care. 2016.39(Suppl 1). LAB BUN 7-21 mg/dL BUN 9 LAB CRET 0.58-0.96 mg/dL Creatinine 0.60 LAB NA 136-144 mmol/L Sodium Low 134 LAB K 3.7-5.1 mmol/L Potassium 4.2 LAB CL 97-105 mmol/L Chloride 100 LAB CO2 22-30 mmol/L CO2 22 LAB AGAP 9-18 mmol/L Anion Gap 12 LAB ALT 7-38 U/L ALT 18 LAB GFRAA eGFR- Amer. >60 LAB GFRNAA . eGFR-All Other Races >60 Result Comment: eGFR (Estimated GFR) Units of measure: mL/min/1.73 meters squared eGFR is derived from the reexpressed MDRD Study equation using the following parameters: serum creatinine, age, gender and race. The creatinine assay has been calibrated to be traceable to IDMS. An eGFR <60 mL/min/1.73m2 for >3 months is consistent with chronic kidney disease. Refer to KDOQI guidelines for clinical interpretation. In patients with unstable renal function, e.g. those with acute kidney injury, the eGFR may not accurately reflect actual GFR. Performed By: #### CBCDIF, CMP, WSR #### [facility] [employer] [address] [place], [place] [address] SED RATE WESTERGREN Collected: 08/23/2017 Status: F Source: [place] 11:16 AM [facility] REPOSITORY TYPE CODE TESTS RESULT OUT OF REFERENCE UNITS RANGE LAB WSR 0-20 mm/hr Sed Rate Westergren 2 Performed By: #### CBCDIF, CMP, WSR #### [facility] [employer] [address] [place], [place] [address] TOXICOLOGY SCREEN,UR Collected: 08/23/2017 Status: F Source: [place] 10:30 AM [facility] REPOSITORY TYPE CODE TESTS RESULT OUT OF REFERENCE UNITS RANGE LAB UPCP2 Negative Negative Phencyclidin e, Urine Result Comment: Cutoff threshold at 25 ng/mL. LAB UBENZ2 Negative Benzodiazepines, Ur Negative Result Comment: Cutoff threshold at 200 ng/mL. LAB UCOC2 Negative Cocaine, Negative Urine Result Comment: Cutoff threshold at 300 ng/mL. LAB UAMPH2 Negative Amphetamines, Urine Negative Result Comment: Cutoff threshold at 1000 ng/mL. LAB UTHC2 Negative Cannabinoids, Urine Negative Result Comment: Cutoff threshold at 50 ng/mL. LAB UOPI2 Negative Opiates, Negative Urine Result Comment: Cutoff threshold at 300 ng/mL. LAB UBARB2 Negative Barbiturates, Urine Negative Result Comment: Cutoff threshold at 200 ng/mL. LAB UETOH <11 mg/dL <11 Ethanol, Urine LAB UOXYC Negative Oxycodone, Negative Urine Result Comment: Cutoff threshold at 100 ng/mL. Comment: Immunoassay screen only. Cross reactivity with other substances can occur with immunoassay screening. Detection of any drug(s) in this urine toxicology panel is presumptive only. These tests are for med ical purposes only and should not be used for compliance monitoring, legal, or forensic use. In clinical settings, confirmatory testing is at the practitioner's discretion [1]. If clinically indicated, confirmation by high specificity, quantitative methodology may be requested on the same speci men through Client Services ([phone]) if contacted within 48 hours of initial testing. [1]Substance Abuse and Mental Health Services Administration (2012). Clinical Drug Testing in Primary Care Technical Assistance Publication Series 32. Department of Health and Human Services, [place], p.10. These tests were developed and their performance characteristics determined by [facility] [place] ( [facility]). They have not been cleared or a pproved by the FDA. [facility] is regulated under CLIA as qualified to perform high complexity testing. These tests are used for clinical purposes. They should not be regarded as investigational or for research. Performed By: #### UTOX2 #### [facility] [address] [place] [id number] Observed: 08/23/2017 Status: F Source: [place] URINE CULTURE 10:30 AM [facility] REPOSITORY Sp. Request/Comment: - Best Practice Alert: To ensure optimal transport conditions and accurate culture results transfer urine specimens to odom top C and S preservative tube. Culture Result - No growth (<1,000 CFU/ml) Performed By: #### URCUL #### [facility] [address] [place], [place] [address] PROGRESS Observed: 08/23/2017 Status: COMPLETED Source: [place] 10:05 AM [facility] [place] REPOSITORY HNO ID: [id number] Author: Mayra Escamilla Service: (none) Author Type: Physician Type: Progress Notes Filed: 08/23/2017 10:49 AM Note Text: INITIAL OB ASSESSMENT OB Provider: Mayra Escamilla MD HPI: Denis Quan is a 32 year old female here to establish Obstetrical Care. Patient's last menstrual period was 06/28/2017 (exact date). from OB Dating Form. Cycle length: 30 days Complaints: nausea without vomiting was planned. Obstetric History T0 L0 SAB0 TAB0 Ectopic0 Multiple0 Live Births0 Comment: menarche 14 Prior : never History of 4th degree laceration: No Patient's Risk Screening for delivery: History of abnormal pap: No Prior treatment for cervical dysplasia: none. History of STDs: HPV Tobacco use: No Caffeine use: No Drug use: No Alcohol use: No Multivitamin with Folic acid: Yes Occupation: [employer] Congregation or heritage: No Would refuse blood transfusion if medically necessary: No BMI 23.46 kg/(m2) Patient BMI over 30? No Marital Status: Partner: Name: Jamee Quan Age: 33 Occupation: [employer] Gender: male History of STDs: None PAST MEDICAL HISTORY Diagnosis Date - Asthma - Churg-Santosh syndrome (HCC) 2006 - Dysmenorrhea primary ocp helps - fracture 5 years old right arm - HSDD - Hypercholesterolemia 10/17/2012 - Other and unspecified hyperlipidemia LDL 138 - Personal history of unspecified urinary disorder history of frequent UTI, last one 2011 - Pulmonary eosinophilia (HCC) - recurrent UTI no issue since 2011 - Unspecified asthma(493.90) - Venereal warts 2007 - Vitamin D deficiency 2010 29 - weight gain PAST SURGICAL HISTORY Procedure Laterality Date - ENDOSCOPY PROC 08/03/2016 - SINUS SURGERY PROC UNLISTED 2006 Current Outpatient Prescriptions on File Prior to Visit: budesonide (PULMICORT) 0.5 mg/2 mL nebulizer solution use 2 mL twice daily. Use 1ml in each nostril twice daily as directed. Rstqpbzc-Tq-Fzk-Fe-FA ( VITAMIN) tab Take 1 tablet by mouth. lactobacillus combo no.6 (PROBIOTIC COMPLEX ORAL) Take by mouth. buPROPion SR (ZYBAN SR; WELLBUTRIN SR) 150 mg 12 hr tablet TAKE ONE TABLET BY MOUTH TWICE DAILY mycophenolate mofetil (CELLCEPT) 250 mg capsule TAKE THREE CAPSULES BY MOUTH TWICE DAILY clonazePAM (KLONOPIN) 0.5 mg tablet Take 1-2 tablets by mouth twice daily as needed for Anxiety. albuterol HFA (PROAIR HFA) 90 mcg/actuation inhaler Inhale 2 Puffs as instructed every 6 hours as needed for Wheezing/Shortness of Breath. mupirocin (BACTROBAN) 2 % ointment Mix in 1 liter of saline and irrigate with 50cc in each nostril twice daily sodium chloride (STERILE SALINE) 0.9 % IRRIGATION Irrigate as directed Etonogestrel-Ethinyl Estradiol (NUVARING) 0.12-0.015 mg/24 hr vaginal ring INSERT ONE(1) RING VAGINALLY AND LEAVE IN PLACE FOR THREE WEEKS, THEN REMOVE FOR 1 WEEK. cyclobenzaprine (FLEXERIL) 5 mg tablet Take 1 tablet by mouth as needed for Muscle Spasm. Cholecalciferol, Vitamin D3, 5,000 unit cap Take 1 capsule by mouth once daily. one po daily [place]-3 Fatty Acids-Vitamin E (FISH OIL) 1,000 mg cap Take 1 capsule by mouth twice daily. B-COMPLEX WITH VITAMIN C TAB Take one(1) tablet daily. No current facility-administered medications on file prior to visit. Review of Systems: GENERAL: Negative for: Fever or Chills HEENT: Negative for: Headache, Impaired Vision, Ringing in Ears, Nosebleeds NECK: Negative for: Swelling, Pain, Stiffness RESPIRATORY: Negative for: Cough, Shortness of breath, Wheezing GASTROINTESTINAL: Negative for: Heartburn, Constipation, Diarrhea, Blood in stool, Vomiting MUSCULOSKELETAL: Negative for: Muscle or joint pain, stiffness, Joint swelling NEUROLOGIC/PSYCHIATRIC: Negative for: Weakness, Paralysis, Numbness, Tingling, Tremor, Anxiety, Depression, Memory loss SKIN: Negative for: Rash, Itching GENITOURINARY: Negative for: vaginal itching, vaginal discharge, hematuria or dysuria PHYSICAL EXAM: Ht 5' 5 (1.65m) Wt 141 lb (64.0kg) LMP 06/28/2017 BMI 23.46 kg/(m2). GENERAL: pleasant female in no apparent distress DERMATOLOGY: Normal, without lesions, non-icteric and non-hirsute NECK: Supple, full range of motion, no adenopathy and thyroid normal BREAST: soft, non-tender, symmetric, no dominant mass, normal nipple-areolar complex, no lymphadenopathy and no nipple discharge ABDOMEN: soft, non-tender and no masses NEURO: alert and oriented x3,exam grossly non-focal PELVIS: External genitalia normal without lesions. Perineal body intact. No vaginal or cervical lesions. Cervix closed. Uterus 8 week size. No adnexal masses or tenderness. Clinical Pelvimetry: Pelvimetry clinically assessed as adequate Limited OB ultrasound exam: single intrauterine and positive cardiac activity ASSESSMENT: 32 year old at 7.2 wks gestational age PLAN: 1) Patient oriented to practice. Discussed nutrition, folic acid supplementation, dietary guidelines, exercise, smoking, alcohol, caffeine, and drug use. Discussed routine OB labs including STD/HIV. Discussed aneuploidy screening options including serum screening and nuchal translucency. 2) NT ordered 3) Will discuss with MFM if any other further recommendations due to Autoimmune disorder. Follow up in 4 weeks or sooner prn. Mayra Alcantara GC/CHLAMYDIA AMPLIF Collected: 08/23/2017 Status: F Source: [place] 4:41 AM [facility] REPOSITORY TYPE CODE TESTS RESULT OUT OF REFERENCE UNITS RANGE LAB GCCTSR GC/Chlam Amp Cervix Source LAB GCAMPL GC Negative Amplification for Neisseria gonorrhoeae by amplification. LAB CLAMPL Chlamydia Negative Amplif for Chlamydia trachomatis by amplification. Performed By: #### GCCT #### [facility] [address], [place] [address] PROGRESS Observed: 08/17/2017 Status: COMPLETED Source: [place] 5:25 PM [facility] [place] REPOSITORY HNO ID: [id number] Author: Rosie Phillip RN Service: (none) Author Type: (none) Type: Progress Notes Filed: 08/17/2017 6:18 PM Note Text: #: 1, Date: 06/2016, Sex: None, Weight: None, GA: 5w0d, Delivery: None, Apgar1: None, Apgar5: None, Living: None, Comments: No [facility] #: 2, Date: None, Sex: None, Weight: None, GA: None, Delivery: None, Apgar1: None, Apgar5: None, Living: None, Comments: None CNNURSE Observed: 08/17/2017 Status: COMPLETED Source: [place] 9:00 AM [facility] REPOSITORY Nurse Visit (WOOB) DENIS QUAN ([id number]) 1985 F Date Time Provider Department 08/17/17 9:00 AM [facility] During your visit today, we recorded the following information about you: Last Period 06/28/17 Rosie Phillip RN 08/17/2017 9:38 AM Signed SEQUENTIAL SCREENINGS [facility] offers sequential screenings for women who are interested in screenings for chromosomal abnormalities and certain defects during a . The sequential screen combines ultrasound and blood tests to determine the risk of chromosomal abnormalities, including Down's Syndrome (Trisomy 21) and Trisomy 18, as well as open neural tube defects including spina bifida. Ultrasound examination is performed between 11 weeks and 13 weeks gestational age. Blood tests are drawn after the ultrasound and again later in the between 15 and 21 weeks gestational age. Please let your physician know if you are interested in this testing. It will require an appointment with our mold tooling technician. This is not an ultrasound performed by a physician in our office during a routine visit. SIGNS AND SYMPTOMS OF LABOR 1. Contractions every 10 minutes or more often 2. Clear, pink, or brownish fluid (water) leaking from vagina 3. Feeling that baby is pushing down, pressure 4. Low, dull backache 5. Cramps that feel like a period 6. Cramps with or without diarrhea If you notice any of the above symptoms, contact our office at [phone] and ask to speak with a nurse. After hours, you can call doctors registry at [phone] OR call [facility] at [phone] and ask to have the doctor second rigger paged. If you consider this an emergency, dial or go to your nearest emergency department. Cord-Blood Banking Up until recently, the umbilical cord--along with the blood that remained in it after a baby was born and the cord cut--was simply discarded by the hospital. Then, in the late , researchers discovered that cord blood possessed unusual properties that made it useful in the treatment of patients with some cancers and other illnesses. While the actual process of collecting cord blood is straightforward, many parents are not even aware that this option now exists, much less familiar with all the issues involved. The case for saving your baby's cord blood The blood running back and forth between your baby and the placenta is full of immature cells called stem cells. Unlike embryonic stem cells, which have the ability to develop into any type of body cell, cord-blood stem cells already are locked into a certain, vital function: making all the different components of the blood, such as platelets, white blood cells, and red blood cells-serving, in effect, like bone marrow. When transfused into a patient whose own blood cells have faulty genetic coding or have been destroyed by chemotherapy or other cancer treatments, the cord-blood cells can implant themselves in the bone marrow and generate legions of new, healthy cells. These days, cord-blood transplants most commonly are used in cancer patients when a donor can't be found for a bone-marrow transplant. The treatment is particularly effective in young patients-the [facility] Cord [facility] reports a 70 percent success rate in children, but only 20 to 40 percent in adults. Researchers envision improving those odds and see many future applications as well, such as curing sickle cell disease and other blood-related genetic illnesses. So there is a possibility that your child, or someone else, may need these super-healthy and versatile cells one day. The drawbacks Aside from not knowing about this medical option, the main reason most people do not save their baby's stem cells is cost. In a private blood bank, the initial costs run from $275 to $1,500. Most also charge a yearly storage fee of $50 to $95. The advantage of using a private bank is that your sample is saved for only you to use. An alternative to private banking Public cord-blood dia are an alternative. These cost no money to use, but your sample is not specifically saved for you. Another person with a more immediate need may use it. If the time should come that you need stem cells, yours may still be available, or you may use donations from other people without charge. You also can direct your sample to go to a relative with an immediate need if the blood type matches. Anyone else needing to use stem cells from a public bank who has not been a donor must pay for it, sometimes tens of thousands of dollars. Will my family benefit from saving stem cells? Right now, situations in which stem cells would be helpful are quite rare. As mentioned earlier, stem-cell transplants are most commonly used for rare genetic conditions and for some types of cancer, including leukemia and lymphoma. And even with these present uses, many questions remain. In cancer treatment, for example, some researchers are concerned about the wisdom of transplanting back into the child the same cells that already showed a propensity to become malignant. Doctors also aren't sure if the number of cells taken at the time of would be enough to treat a full-grown 16-year-old. It is also not completely clear how active the cells would be after years of being stored. The treatment is so new and rare, we just don't have the data yet to resolve these important issues. What do the experts say? The [employer] encourages philanthropic blood banking in public dia, but only for families with a current or potential need. Blood-bank proponents encourage any kind of banking, pointing out that research is getting closer and closer to many diverse, live-saving applications. How do I decide? Each family must weigh the pros and cons for themselves. Some families say that any cost is worth their peace of mind. Others say that in the face of uncertainty about the effectiveness of the treatment, they will use their resources elsewhere. Some choose the middle ground of donating publicly, knowing that their sample might benefit another family, if not themselves. For more information, ask your doctor or nurse, and be sure to check out our article on the technical aspects of cord-blood banking. Technical Aspects of Cord-Blood Banking If you are interested in storing your baby's umbilical-cord blood because of its possible use in emerging medical treatments, you must make arrangements with a blood bank before your child is born. The collection procedure is quite simple: After delivery of the baby, the umbilical cord is clamped and cut in the usual way. The blood that remains in the umbilical-cord vessels is then collected in sterile containers. The blood may be removed from the cord with a large needle or allowed to flow freely, depending on the company's collection system. The containers may look like large test tubes or like the plastic bags used in a blood bank. It does not cause the mother or the baby any pain to collect the blood, and no blood is taken that the baby needs at the moment. The nurse, sterile processing manager, or physician will then label the samples, check them over with you, and package them for a special pickup arranged with a commercial carrier. When the blood arrives at the blood-bank facility, it is processed and the parents are notified. It is then kept in an advanced storage system for years. How do I know that my sample is safe? Power outages and bankruptcies potentially could threaten any organization, but so far none have been reported. It is to be hoped that the scientists in these dia would arrange for safe transfer to another facility if the need arose. YOU MUST MAKE ARRANGEMENTS AHEAD OF TIME! Public cord-blood dia--DONATION: [employer] [phone] [facility]'s Placental Blood Program, [facility] Umbilical Cord Blood Bank, Private cord-blood dia--SAVING FOR YOUR OWN USE: [employer], (I think this is the least expensive) [employer] [phone] [employer], (013) [employer] [place] [facility], [phone] 700[employer], [phone] [place] [facility], Cord Blood Registry, ([phone]) [facility], An Internet search may provide you with additional listings. Rosie Phillip RN 08/17/2017 6:18 PM Signed #: 1, Date: 06/2016, Sex: None, Weight: None, GA: 5w0d, Delivery: None, Apgar1: None, Apgar5: None, Living: None, Comments: No DANDamp;C #: 2, Date: None, Sex: None, Weight: None, GA: None, Delivery: None, Apgar1: None, Apgar5: None, Living: None, Comments: None Referring Provider: SELF [200] Allergies As of Date: 08/17/2017 Noted Allergy Reaction CAT HAIR EXTRACT 12/03/2004 DUST MITES 12/03/2004 ITRACONAZOLE 12/03/2004 9 - Itching LEVOFLOXACIN 12/03/2004 2 - Rash MOLD 12/03/2004 SULFA (SULFONAMIDE ANTIBIOTICS) 09/28/2005 2 - Rash Date Reviewed: 08/17/2017 Reviewed by: Rosie Phillip RN - Fully Assessed Reason for Visit: Care [86] Cmt: Pre-New OB Primary Visit Diagnosis:Supervision of high risk , antepartum [O09.90] Other Visit Diagnoses:History of depression [Z86.59] History of abdominal pain [Z87.898] History of recurrent UTI (urinary tract infection) [Z87.440] Order(s):PATTI PT ED CLASSROOM MONITOR [] Order #: [id number]: 1 FUTURE PATTI PT ED ANESTHESIA [[id number]] Order #: [id number]: 1 FUTURE PATTI PT ED CLASSROOM MONITOR [] Order #: [id number]: 1 FUTURE PATTI WHAT TO EXPECT DURING YOUR HOSPITAL STAY [] Order #: [id number]: 1 FUTURE PATTI PT ED CLASSROOM MONITOR [] Order #: [id number]: 1 FUTURE PATTI PT ED CLASSROOM MONITOR [] Order #: [id number]: 1 FUTURE PATTI PT ED CLASSROOM MONITOR [] Order #: [id number]: 1 FUTURE PATTI PT ED CLASSROOM MONITOR [] Order #: [id number]. #:[id number]: 1 PATTI PT ED ANESTHESIA [[id number]] Order #: [id number]. #:[id number]: 1 PATTI PT ED CLASSROOM MONITOR [] Order #: [id number]. #:[id number]: 1 PATTI WHAT TO EXPECT DURING YOUR HOSPITAL STAY [[id number]] Order #: [id number]. #:[id number]: 1 PATTI PT ED CLASSROOM MONITOR [] Order #: [id number]. #:[id number]: 1 PATTI PT ED CLASSROOM MONITOR [] Order #: [id number]. #:[id number]: 1 PATTI PT ED CLASSROOM MONITOR [] Order #: [id number]. #:[id number]: 1 Prescriptions as of 08/17/2017 Sig: VITAMIN,CALCIUM,MINE* Take 1 tablet by mouth. PROBIOTIC COMPLEX ORAL Take by mouth. ALBUTEROL SULFATE HFA 90 MCG/* Inhale 2 Puffs as instructed * BUDESONIDE 0.5 MG/2 ML SUSPEN* 2 mL twice daily. Use 1ml in * CHOLECALCIFEROL (VITAMIN D3) * Take 1 capsule by mouth once * [place]-3 FATTY ACIDS-VITAMIN E* Take 1 capsule by mouth twice* B-COMPLEX WITH VITAMIN C TABL* Take one(1) tablet daily. BUPROPION HCL SR 150 MG TABLE* TAKE ONE TABLET BY MOUTH TWIC* MYCOPHENOLATE MOFETIL 250 MG * TAKE THREE CAPSULES BY MOUTH * CLONAZEPAM 0.5 MG TABLET Take 1-2 tablets by mouth twi* MUPIROCIN 2 % TOPICAL OINTMENT Mix in 1 liter of saline and * SODIUM CHLORIDE 0.9 % IRRIGAT* Irrigate as directed ETONOGESTREL-ETHINYL ESTRADIO* INSERT ONE(1) RING VAGINALLY * CYCLOBENZAPRINE 5 MG TABLET Take 1 tablet by mouth as nee* Medication notes this encounter CLONAZEPAM 0.5 MG TABLET >> Rosie Phillip RN 08/17/2017 9:16 AM >> ROSIE PHILLIP RN [facility] Aug 17, 2017 9:16 AM Pt no longer taking MUPIROCIN 2 % TOPICAL OINTMENT >> Rosie Phillip RN 08/17/2017 9:17 AM >> ROSIE PHILLIP RN [facility] Aug 17, 2017 9:17 AM Course of therapy completed SODIUM CHLORIDE 0.9 % IRRIGATION SOLUTION >> Rosie Phillip RN 08/17/2017 9:17 AM >> ROSIE PHILLIP RN [facility] Aug 17, 2017 9:17 AM Course of therapy completed ETONOGESTREL-ETHINYL ESTRADIOL 0.12 MG -0.015 MG/24 HR VAGINAL RING >> Rosie Phillip RN 08/17/2017 9:16 AM >> ROSIE PHILLIP RN [facility] Aug 17, 2017 9:16 AM Pt no longer taking CYCLOBENZAPRINE 5 MG TABLET >> Rosie Phillip RN 08/17/2017 9:16 AM >> ROSIE PHILLIP RN [facility] Aug 17, 2017 9:16 AM Pt no longer taking Problem List As Of Date 08/17/2017 Noted Resolved Asthma [J45.909] 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 UTI (lower urinary tract infection) [N39.0] INVALID FOR* Chest pain [R07.9] INVALID FOR*01/20/2014 Palpitations [R00.2] INVALID FOR*06/21/2017 Family history of hyperlipidemia [Z83.49] INVALID FOR*06/21/2017 Hypercholesterolemia [E78.00] INVALID FOR* Headache [R51] INVALID FOR* Priority: Severe More... Neutropenic fever [D70.9, R50.81] INVALID FOR* Priority: Very Severe More... Mouth ulcers [K12.1] INVALID FOR*06/21/2017 Priority: Severe More... Thrombocytosis [D47.3] INVALID FOR*07/01/2013 Priority: Mild More... Nausea [R11.0] INVALID FOR*06/21/2017 More... Oral thrush [B37.0] INVALID FOR* More... MILES (acute kidney injury) [N17.9] INVALID FOR* More... DISPOSITION AND FOLLOW-UP [V999.01] INVALID FOR*06/21/2017 More... Dyspareunia [MZO1117] INVALID FOR*06/21/2017 Vaginismus [N94.2] INVALID FOR* Vitamin D deficiency [E55.9] Other and unspecified hyperlipidemia [E78.5] HSDD [F52.0] Dysmenorrhea [N94.6] 06/21/2017 More... Muscle spasm [M62.838] INVALID FOR*06/21/2017 Eosinophilia [D72.1] INVALID FOR* Epigastric pain [R10.13] INVALID FOR*06/21/2017 Abnormal weight loss [R63.4] INVALID FOR* Poor appetite [R63.0] INVALID FOR* History of depression [Z86.59] INVALID FOR* More... History of abdominal pain [Z87.898] INVALID FOR* More... History of recurrent UTI (urinary tract infecti*INVALID FOR* More... Other instructions from your clinician: SEQUENTIAL SCREENINGS The [facility] offers sequential screenings for women who are interested in screenings for chromosomal abnormalities and certain defects during a . The sequential screen combines ultrasound and blood tests to determine the risk of chromosomal abnormalities, including Down's Syndrome (Trisomy 21) and Trisomy 18, as well as open neural tube defects including spina bifida. Ultrasound examination is performed between 11 weeks and 13 weeks gestational age. Blood tests are drawn after the ultrasound and again later in the between 15 and 21 weeks gestational age. Please let your physician know if you are interested in this testing. It will require an appointment with our mold tooling technician. This is not an ultrasound performed by a physician in our office during a routine visit. SIGNS AND SYMPTOMS OF LABOR 1. Contractions every 10 minutes or more often 2. Clear, pink, or brownish fluid (water) leaking from vagina 3. Feeling that baby is pushing down, pressure 4. Low, dull backache 5. Cramps that feel like a period 6. Cramps with or without diarrhea If you notice any of the above symptoms, contact our office at [phone] and ask to speak with a nurse. After hours, you can call doctors registry at [phone] OR call [facility] at [phone] and ask to have the doctor second rigger paged. If you consider this an emergency, dial [phone] or go to your nearest emergency department. Cord-Blood Banking Up until recently, the umbilical cord--along with the blood that remained in it after a baby was born and the cord cut--was simply discarded by the hospital. Then, in the late , researchers discovered that cord blood possessed unusual properties that made it useful in the treatment of patients with some cancers and other illnesses. While the actual process of collecting cord blood is straightforward, many parents are not even aware that this option now exists, much less familiar with all the issues involved. The case for saving your baby's cord blood The blood running back and forth between your baby and the placenta is full of immature cells called stem cells. Unlike embryonic stem cells, which have the ability to develop into any type of body cell, cord-blood stem cells already are locked into a certain, vital function: making all the different components of the blood, such as platelets, white blood cells, and red blood cells-serving, in effect, like bone marrow. When transfused into a patient whose own blood cells have faulty genetic coding or have been destroyed by chemotherapy or other cancer treatments, the cord-blood cells can implant themselves in the bone marrow and generate legions of new, healthy cells. These days, cord-blood transplants most commonly are used in cancer patients when a donor can't be found for a bone-marrow transplant. The treatment is particularly effective in young patients- the [facility] Cord Blood [facility] reports a 70 percent success rate in children, but only 20 to 40 percent in adults. Researchers envision improving those odds and see many future applications as well, such as curing sickle cell disease and other blood-related genetic illnesses. So there is a possibility that your child, or someone else, may need these super-healthy and versatile cells one day. The drawbacks Aside from not knowing about this medical option, the main reason most people do not save their baby's stem cells is cost. In a private blood bank, the initial costs run from $275 to $1,500. Most also charge a yearly storage fee of $50 to $95. The advantage of using a private bank is that your sample is saved for only you to use. An alternative to private banking Public cord-blood dia are an alternative. These cost no money to use, but your sample is not specifically saved for you. Another person with a more immediate need may use it. If the time should come that you need stem cells, yours may still be available, or you may use donations from other people without charge. You also can direct your sample to go to a relative with an immediate need if the blood type matches. Anyone else needing to use stem cells from a public bank who has not been a donor must pay for it, sometimes tens of thousands of dollars. Will my family benefit from saving stem cells? Right now, situations in which stem cells would be helpful are quite rare. As mentioned earlier, stem-cell transplants are most commonly used for rare genetic conditions and for some types of cancer, including leukemia and lymphoma. And even with these present uses, many questions remain. In cancer treatment, for example, some researchers are concerned about the wisdom of transplanting back into the child the same cells that already showed a propensity to become malignant. Doctors also aren't sure if the number of cells taken at the time of would be enough to treat a full-grown 16-year-old. It is also not completely clear how active the cells would be after years of being stored. The treatment is so new and rare, we just don't have the data yet to resolve these important issues. What do the experts say? The [employer] encourages philanthropic blood banking in public dia, but only for families with a current or potential need. Blood-bank proponents encourage any kind of banking, pointing out that research is getting closer and closer to many diverse, live-saving applications. How do I decide? Each family must weigh the pros and cons for themselves. Some families say that any cost is worth their peace of mind. Others say that in the face of uncertainty about the effectiveness of the treatment, they will use their resources elsewhere. Some choose the middle ground of donating publicly, knowing that their sample might benefit another family, if not themselves. For more information, ask your doctor or nurse, and be sure to check out our article on the technical aspects of cord-blood banking. Technical Aspects of Cord-Blood Banking If you are interested in storing your baby's umbilical- cord blood because of its possible use in emerging medical treatments, you must make arrangements with a blood bank before your child is born. The collection procedure is quite simple: After delivery of the baby, the umbilical cord is clamped and cut in the usual way. The blood that remains in the umbilical-cord vessels is then collected in sterile containers. The blood may be removed from the cord with a large needle or allowed to flow freely, depending on the company's collection system. The containers may look like large test tubes or like the plastic bags used in a blood bank. It does not cause the mother or the baby any pain to collect the blood, and no blood is taken that the baby needs at the moment. The nurse, sterile processing manager, or physician will then label the samples, check them over with you, and package them for a special pickup arranged with a commercial carrier. When the blood arrives at the blood- bank facility, it is processed and the parents are notified. It is then kept in an advanced storage system for years. How do I know that my sample is safe? Power outages and bankruptcies potentially could threaten any organization, but so far none have been reported. It is to be hoped that the scientists in these dia would arrange for safe transfer to another facility if the need arose. YOU MUST MAKE ARRANGEMENTS AHEAD OF TIME! Public cord-blood dia--DONATION: [employer] [phone] [facility]'s Placental Blood Program, [facility] Umbilical Cord Blood Bank, Private cord-blood dia--SAVING FOR YOUR OWN USE: [employer], (I think this is the least expensive) [employer] [phone] [employer], [phone]) [employer] [place] [facility], [phone] 700[employer], [phone] [place] [facility], Cord Blood Registry, (805) CORDBLOOD [employer], An Internet search may provide you with additional listings. Disposition: Return in about 6 days (around 08/23/2017) for New OB with Dr Escamilla. Follow-up and Disposition History Recorded Encounter Status:Closed by ROSIE PHILLIP RN on 08/17/17 PROGRESS Observed: 08/08/2017 Status: COMPLETED Source: [place] 2:00 PM [facility] REPOSITORY HNO ID: [id number] Author: Ilana Vu Service: (none) Author Type: Physician Type: Progress Notes Filed: 08/08/2017 2:07 PM Note Text: This note is formatted with the Assessment and Plan first and Subjective and Objective sections to follow. Assessment: Chronic pansinusitis Churg-Santosh syndrome Plan: The patient is without signs of infection on today's exam. She has minimal polypoid change in the ethmoid sinuses. Of note she is 6 weeks . She is going to continue using nasal saline and budesonide nasal irrigations. I plan to see her back in 3 months and as needed Subjective: Ms. DENIS QUAN is a 32 year old female returning for Chronic sinusitis. Since last seen, the patient is doing well. She has no complaints with regards to discolored nasal drainage. She does have clear nasal drainage. Of note, she is 6 weeks ALLERGIES Allergen Reactions - Cat Hair Extract - Dust Mites - Itraconazole Itching - Levofloxacin Rash - Mold - Sulfa (Sulfonamide * Rash Outpatient Medications Prior to Visit: clonazePAM (KLONOPIN) 0.5 mg tablet Take 1-2 tablets by mouth twice daily as needed for Anxiety. Disp: 60 tablet Rfl: 2 albuterol HFA (PROAIR HFA) 90 mcg/actuation inhaler Inhale 2 Puffs as instructed every 6 hours as needed for Wheezing/Shortness of Breath. Disp: 2 Inhaler Rfl: 11 mupirocin (BACTROBAN) 2 % ointment Mix in 1 liter of saline and irrigate with 50cc in each nostril twice daily Disp: 4 Tube Rfl: 3 sodium chloride (STERILE SALINE) 0.9 % IRRIGATION Irrigate as directed Disp: 4000 mL Rfl: 3 Etonogestrel-Ethinyl Estradiol (NUVARING) 0.12-0.015 mg/24 hr vaginal ring INSERT ONE(1) RING VAGINALLY AND LEAVE IN PLACE FOR THREE WEEKS, THEN REMOVE FOR 1 WEEK. Disp: 1 Each Rfl: 12 cyclobenzaprine (FLEXERIL) 5 mg tablet Take 1 tablet by mouth as needed for Muscle Spasm. Disp: 10 tablet Rfl: 0 budesonide (PULMICORT) 0.5 mg/2 mL nebulizer solution 2 mL twice daily. Use 1ml in each nostril BID. Disp: 60 Ampule Rfl: 11 Cholecalciferol, Vitamin D3, 5,000 unit cap Take 1 capsule by mouth once daily. one po daily Disp: 90 capsule Rfl: 4 [place]-3 Fatty Acids-Vitamin E (FISH OIL) 1,000 mg cap Take 1 capsule by mouth twice daily. Disp: Rfl: B-COMPLEX WITH VITAMIN C TAB Take one(1) tablet daily. Disp: Rfl: 0 buPROPion SR (ZYBAN SR; WELLBUTRIN SR) 150 mg 12 hr tablet TAKE ONE TABLET BY MOUTH TWICE DAILY Disp: 60 tablet Rfl: 3 mycophenolate mofetil (CELLCEPT) 250 mg capsule TAKE THREE CAPSULES BY MOUTH TWICE DAILY Disp: 180 capsule Rfl: 3 No facility-administered medications prior to visit. Objective: Nose: Anterior rhinoscopy revealed a midline septum. The turbinates were mildly congested. The mucosa was pink and moist without signs of infection. The airway was excellent. Orocavity/Oropharynx: There were no lesions to visualization or palpation of the lips, cheeks, gums, floor of mouth, tongue, hard and soft palate, tonsillar pillars or posterior pharyngeal wall. Neck: Papation of the neck revealed no adenopathy, salivary gland masses or asymmetry, or thyroid masses or enlargement. Procedure In order to assess the patient's complaint of sinusitis, nasal endoscopy was performed. After spraying the nose with topical 2% lidocaine and 0.5% neosynephrine the flexible scope was passed. Findings: Bilateral middle meatuses were clean with no evidence of pus or polyps Ilana Vu MD CNOV Observed: 08/08/2017 Status: COMPLETED Source: [place] 1:30 PM [facility] REPOSITORY Office Visit (OTOLMN) DENIS QUAN ([id number]) 1985 F Date Time Provider Department 08/08/17 1:30 PM ILANA VU OTANDREAS During your visit today, we recorded the following information about you: Tam Velez 08/08/2017 1:34 PM Signed Tobacco Use: Never Was smoking cessation packet given? N/A - Patient is a non- smoker or quit ANDgt;1 year ago. Was a referral initiated?N/A Patient is a non-smoker Ilana Vu MD 08/08/2017 2:07 PM Signed This note is formatted with the Assessment and Plan first and Subjective and Objective sections to follow. Assessment: Chronic pansinusitis Churg-Santosh syndrome Plan: The patient is without signs of infection on today's exam. She has minimal polypoid change in the ethmoid sinuses. Of note she is 6 weeks . She is going to continue using nasal saline and budesonide nasal irrigations. I plan to see her back in 3 months and as needed Subjective: Ms. DENIS QUAN is a 32 year old female returning for Chronic sinusitis. Since last seen, the patient is doing well. She has no complaints with regards to discolored nasal drainage. She does have clear nasal drainage. Of note, she is 6 weeks ALLERGIES Allergen Reactions - Cat Hair Extract - Dust Mites - Itraconazole Itching - Levofloxacin Rash - Mold - Sulfa (Sulfonamide * Rash Outpatient Medications Prior to Visit: clonazePAM (KLONOPIN) 0.5 mg tablet Take 1-2 tablets by mouth twice daily as needed for Anxiety. Disp: 60 tablet Rfl: 2 albuterol HFA (PROAIR HFA) 90 mcg/actuation inhaler Inhale 2 Puffs as instructed every 6 hours as needed for Wheezing/Shortness of Breath. Disp: 2 Inhaler Rfl: 11 mupirocin (BACTROBAN) 2 % ointment Mix in 1 liter of saline and irrigate with 50cc in each nostril twice daily Disp: 4 Tube Rfl: 3 sodium chloride (STERILE SALINE) 0.9 % IRRIGATION Irrigate as directed Disp: 4000 mL Rfl: 3 Etonogestrel-Ethinyl Estradiol (NUVARING) 0.12-0.015 mg/24 hr vaginal ring INSERT ONE(1) RING VAGINALLY AND LEAVE IN PLACE FOR THREE WEEKS, THEN REMOVE FOR 1 WEEK. Disp: 1 Each Rfl: 12 cyclobenzaprine (FLEXERIL) 5 mg tablet Take 1 tablet by mouth as needed for Muscle Spasm. Disp: 10 tablet Rfl: 0 budesonide (PULMICORT) 0.5 mg/2 mL nebulizer solution 2 mL twice daily. Use 1ml in each nostril BID. Disp: 60 Ampule Rfl: 11 Cholecalciferol, Vitamin D3, 5,000 unit cap Take 1 capsule by mouth once daily. one po daily Disp: 90 capsule Rfl: 4 [place]-3 Fatty Acids-Vitamin E (FISH OIL) 1,000 mg cap Take 1 capsule by mouth twice daily. Disp: Rfl: B-COMPLEX WITH VITAMIN C TAB Take one(1) tablet daily. Disp: Rfl: 0 buPROPion SR (ZYBAN SR; WELLBUTRIN SR) 150 mg 12 hr tablet TAKE ONE TABLET BY MOUTH TWICE DAILY Disp: 60 tablet Rfl: 3 mycophenolate mofetil (CELLCEPT) 250 mg capsule TAKE THREE CAPSULES BY MOUTH TWICE DAILY Disp: 180 capsule Rfl: 3 No facility-administered medications prior to visit. Objective: Nose: Anterior rhinoscopy revealed a midline septum. The turbinates were mildly congested. The mucosa was pink and moist without signs of infection. The airway was excellent. Orocavity/Oropharynx: There were no lesions to visualization or palpation of the lips, cheeks, gums, floor of mouth, tongue, hard and soft palate, tonsillar pillars or posterior pharyngeal wall. Neck: Papation of the neck revealed no adenopathy, salivary gland masses or asymmetry, or thyroid masses or enlargement. Procedure In order to assess the patient's complaint of sinusitis, nasal endoscopy was performed. After spraying the nose with topical 2% lidocaine and 0.5% neosynephrine the flexible scope was passed. 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 Use 1ml in * CHOLECALCIFEROL (VITAMIN D3) * Take 1 capsule by mouth once * [place]ME[place]-3 FATTY ACIDS-VITAMIN E* Take 1 capsule by mouth twice* B-COMPLEX WITH VITAMIN C TABL* Take one(1) tablet daily. 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 UTI (lower urinary tract infection) [N39.0] INVALID FOR* Chest pain [R07.9] INVALID FOR*01/20/2014 Palpitations [R00.2] INVALID FOR*06/21/2017 Family history of hyperlipidemia [Z83.49] INVALID FOR*06/21/2017 Hypercholesterolemia [E78.00] INVALID FOR* Headache [R51] INVALID FOR* Priority: Severe More... Neutropenic fever [D70.9, R50.81] INVALID FOR* Priority: Very Severe More... Mouth ulcers [K12.1] INVALID FOR*06/21/2017 Priority: Severe More... Thrombocytosis [D47.3] INVALID FOR*07/01/2013 Priority: Mild More... Nausea [R11.0] INVALID FOR*06/21/2017 More... Oral thrush [B37.0] INVALID FOR* More... MILES (acute kidney injury) [N17.9] INVALID FOR* More... DISPOSITION AND FOLLOW-UP [V999.01] INVALID FOR*06/21/2017 More... 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 Muscle spasm [M62.838] INVALID FOR*06/21/2017 Eosinophilia [D72.1] INVALID FOR* Epigastric pain [R10.13] INVALID FOR*06/21/2017 Abnormal weight loss [R63.4] INVALID FOR* Poor appetite [R63.0] INVALID FOR* Visit Notes: >> Tam Farnsworth Aug 08, 2017 1:34 PM Status: Signed Tobacco Use: Never Was smoking cessation packet given? N/A - Patient is a non- smoker or quit >1 year ago. Was a referral initiated?N/A Patient is a non-smoker Disposition: Return in about 3 months (around 11/07/2017). Follow-up and Disposition History Recorded Encounter Status:Closed by ILANA VU MD on 08/08/17 HCG, QUANTITATIVE BL Collected: 07/29/2017 Status: F Source: [place] 11:50 AM [facility] REPOSITORY TYPE CODE TESTS RESULT OUT OF REFERENCE UNITS RANGE LAB HCGQT <5.0 mU/mL HCG, High Quantitative Bl 477.6 Result Comment: QUANTITATIVE HCG NORMAL RANGES Weeks of Gestation (Weeks Since LMP) 3 Weeks (5.8-71.2 mIU/mL) 4 Weeks (9.5-750 mIU/mL) 5 Weeks (217-7138 mIU/mL) 6 Weeks (158-95516 mIU/mL) 7 Weeks (3697-463887 mIU/mL) 8 Weeks (00285-247917 mIU/mL) 9 Weeks (31522-533124 mIU/mL) 10 Weeks (97613-907580 mIU/mL) 12 Weeks (64859-345317 mIU/mL) Referenced to 4th IS of [facility] Performed By: #### HCGQT #### [facility] [employer] [address] [place], [place] [address] URINALYSIS Collected: 07/26/2017 Status: F Source: [place] 4:43 PM [facility] REPOSITORY TYPE CODE TESTS RESULT OUT OF REFERENCE UNITS RANGE LAB UCOL Yellow Color Yellow LAB [facility] Clear Clarity Clear LAB UGLUC Negative mg/dL Glucose, Urine Negative LAB UBIL Negative Bilirubin, Urine Negative LAB UKET Negative Ketones, Urine Negative LAB USPG 1.005-1.030 Specific [place], Ur 1.008 LAB UHGB Negative Hemoglobin/Blood, Negative Ur LAB UPH 4.5-8.0 pH 6.0 LAB UPROT Negative mg/dL Protein, Urine Negative LAB UUROB Normal Urobilinogen Normal LAB UNITR Negative Nitrites Negative LAB ULKEST Negative Leukest Negative LAB UCOM Comments SEE COMMENT Result Comment: Microscopic Examination Performed LAB UWBC 0-5 /HPF WBC 0-5 LAB URBC 0-3 /HPF RBC 0-3 LAB UEPI /HPF Epithelial SEE Cells COMMENT Result Comment: Few Squamous Epithelial Cells LAB UMCOM Urine SEE Kapil Comment COMMENT Result Comment: N/A Performed By: #### UA #### [facility] [employer] [address] [place], [place] [address] CBC AND DIFFERENTIAL Collected: 07/26/2017 Status: F Source: [place] 4:31 PM [facility] REPOSITORY TYPE CODE TESTS RESULT OUT OF REFERENCE UNITS RANGE LAB WBC 3.70-11.00 k/uL WBC 8.48 LAB RBC 3.90-5.20 m/uL RBC 4.60 LAB HGB 11.5-15.5 g/dL Hemoglobin 14.0 LAB HCT 36.0-46.0 % Hematocrit 42.4 LAB MCV 80.0-100.0 fL MCV 92.2 LAB MCH 26.0-34.0 pG MCH 30.4 LAB MCHC 30.5-36.0 g/dL MCHC 33.0 LAB RDWCV 11.5-15.0 % RDW-CV 11.7 LAB PLTCT 150-400 k/uL Platelet Count 313 LAB MPV 9.0-12.7 fL MPV 9.9 LAB ANEUT % Neut% 61.3 LAB AANEUT 1.45-7.50 k/uL Abs Neut 5.19 LAB ALYMP % Lymph% 30.1 LAB AALYMP 1.00-4.00 k/uL Abs Lymph 2.55 LAB AMONO % [place]% 4.7 LAB AAMONO <0.87 k/uL Abs [place] 0.40 LAB AEOS % Eosin% 2.7 LAB AAEOS <0.46 k/uL Abs Eosin 0.23 LAB ABASO % Baso% 1.2 LAB AABASO <0.11 k/uL Abs Baso 0.10 LAB AUNRBC 0 /100 WBC NRBCs 0.0 LAB ABNRBC <0.01 k/uL Absolute nRBC <0.01 LAB DTYP DTYPE Auto Diff Performed By: #### CBCDIF, WSR, CMP #### [facility] [address] [place], [place] [address] SED RATE WESTERGREN Collected: 07/26/2017 Status: F Source: [place] 4:31 PM [facility] REPOSITORY TYPE CODE TESTS RESULT OUT OF REFERENCE UNITS RANGE LAB WSR 0-20 mm/hr Sed Rate Westergren 5 Performed By: #### CBCDIF, WSR, CMP #### [facility] [address] [place], [place] [address] COMP METABOLIC PANEL Collected: 07/26/2017 Status: F Source: [place] 4:31 PM [facility] REPOSITORY TYPE CODE TESTS RESULT OUT OF REFERENCE UNITS RANGE LAB TP 6.3-8.0 g/dL Protein, Total 7.0 LAB ALB 3.9-4.9 g/dL Albumin 4.5 LAB CA 8.5-10.2 mg/dL Calcium, Total 9.8 LAB TBIL 0.2-1.3 mg/dL Bilirubin, Total 0.2 LAB ALKP 32-117 U/L Alkaline Phosphatase 55 LAB AST 13-35 U/L AST 19 LAB GLU 74-99 mg/dL Glucose 80 Result Comment: The [place] Diabetes Association (ADA) provides guidance for cutoff values for fasting glucose and random glucose. The ADA defines fasting as no caloric intake for at least 8 hours. Fas ting plasma glucose results between 100 to 125 mg/dL indicate increased risk for diabetes (prediabetes). Fasting plasma glucose results greater than or equal to 126 mg/dL meet the criteria for diagnosis of diabetes. In the absence of unequivocal hyperglycemia, results should be confirmed by repeat testing. In a patient with classic symptoms of hyperglycemia or hyperglycemic crisis, random plasma glucose results greater than or equal to 200 mg/dL meet the criteria for diagnosis of diabetes. Reference: Standards of Medical Care in Diabetes 2016, [place] [employer] Association. Diabetes Care. 2016.39(Suppl 1). LAB BUN 7-21 mg/dL BUN 16 LAB CRET 0.58-0.96 mg/dL Creatinine 0.81 LAB NA 136-144 mmol/L Sodium 137 LAB K 3.7-5.1 mmol/L Potassium 4.4 LAB CL 97-105 mmol/L Chloride 99 LAB CO2 22-30 mmol/L CO2 24 LAB AGAP 9-18 mmol/L Anion Gap 14 LAB ALT 7-38 U/L ALT 18 LAB GFRAA eGFR- Amer. >60 LAB GFRNAA . eGFR-All Other Races >60 Result Comment: eGFR (Estimated GFR) Units of measure: mL/min/1.73 meters squared eGFR is derived from the reexpressed MDRD Study equation using the following parameters: serum creatinine, age, gender and race. The creatinine assay has been calibrated to be traceable to IDMS. An eGFR <60 mL/min/1.73m2 for >3 months is consistent with chronic kidney disease. Refer to KDOQI guidelines for clinical interpretation. In patients with unstable renal function, e.g. those with acute kidney injury, the eGFR may not accurately reflect actual GFR. Performed By: #### CBCDIF, WSR, CMP #### [facility] [employer] [address] [place], [place] [address] HCG, QUANTITATIVE BL Collected: 07/26/2017 Status: F Source: [place] 4:31 PM [facility] REPOSITORY TYPE CODE TESTS RESULT OUT OF REFERENCE UNITS RANGE LAB HCGQT <5.0 mU/mL HCG, High Quantitative Bl 98.7 Result Comment: QUANTITATIVE HCG NORMAL RANGES Weeks of Gestation (Weeks Since LMP) 3 Weeks (5.8-71.2 mIU/mL) 4 Weeks (9.5-750 mIU/mL) 5 Weeks (217-7138 mIU/mL) 6 Weeks (158-28029 mIU/mL) 7 Weeks (3697-806847 mIU/mL) 8 Weeks (57285-390533 mIU/mL) 9 Weeks (35421-439967 mIU/mL) 10 Weeks (65204-903546 mIU/mL) 12 Weeks (51375-563442 mIU/mL) Referenced to 4th IS of [facility] Performed By: #### HCGQT #### [facility] [employer] [address] [place], [place] [address] HCG, QUANTITATIVE BL Collected: 06/29/2017 Status: F Source: [place] 12:10 PM [facility] REPOSITORY TYPE CODE TESTS RESULT OUT OF REFERENCE UNITS RANGE LAB HCGQT <5.0 mU/mL HCG, High Quantitative Bl 10.8 Result Comment: HCG values 5 to 16 mU/mL may represent benign, pituitary derived HCG in non- women over 40 years of age. QUANTITATIVE HCG NORMAL RANGES Weeks of Gestation (Weeks Since LMP) 3 Weeks (5.8-71.2 mIU/mL) 4 Weeks (9.5-750 mIU/mL) 5 Weeks (217-7138 mIU/mL) 6 Weeks (158-56533 mIU/mL) 7 Weeks (3697-605817 mIU/mL) 8 Weeks (35042-666240 mIU/mL) 9 Weeks (74797-307364 mIU/mL) 10 Weeks (54876-456512 mIU/mL) 12 Weeks (03214-203232 mIU/mL) Referenced to 4th IS of [facility] Performed By: #### HCGQT #### [facility] [employer] [address] [place], [place] [address] HCG, QUANTITATIVE BL Collected: 06/26/2017 Status: F Source: [place] 11:20 AM [facility] REPOSITORY TYPE CODE TESTS RESULT OUT OF REFERENCE UNITS RANGE LAB HCGQT <5.0 mU/mL HCG, High Quantitative Bl 73.7 Result Comment: QUANTITATIVE HCG NORMAL RANGES Weeks of Gestation (Weeks Since LMP) 3 Weeks (5.8-71.2 mIU/mL) 4 Weeks (9.5-750 mIU/mL) 5 Weeks (217-7138 mIU/mL) 6 Weeks (158-92485 mIU/mL) 7 Weeks (3697-425728 mIU/mL) 8 Weeks (56402-456889 mIU/mL) 9 Weeks (69779-585811 mIU/mL) 10 Weeks (88146-797214 mIU/mL) 12 Weeks (86574-479983 mIU/mL) Referenced to 4th IS of [facility] Performed By: #### HCGQT #### [facility] [employer] [address] [place], [place] [address] COMP METABOLIC PANEL Collected: 06/23/2017 Status: F Source: [place] 4:30 PM [facility] REPOSITORY TYPE CODE TESTS RESULT OUT OF REFERENCE UNITS RANGE LAB TP 6.3-8.0 g/dL Protein, Total 7.0 LAB ALB 3.9-4.9 g/dL Albumin 4.4 LAB CA 8.5-10.2 mg/dL Calcium, Total 9.8 LAB TBIL 0.2-1.3 mg/dL Bilirubin, Total 0.2 LAB ALKP 32-117 U/L Alkaline Phosphatase 58 LAB AST 13-35 U/L AST 19 LAB GLU 74-99 mg/dL Glucose High 103 Result Comment: The [place] Diabetes Association (ADA) provides guidance for cutoff values for fasting glucose and random glucose. The ADA defines fasting as no caloric intake for at least 8 hours. Fas ting plasma glucose results between 100 to 125 mg/dL indicate increased risk for diabetes (prediabetes). Fasting plasma glucose results greater than or equal to 126 mg/dL meet the criteria for diagnosis of diabetes. In the absence of unequivocal hyperglycemia, results should be confirmed by repeat testing. In a patient with classic symptoms of hyperglycemia or hyperglycemic crisis, random plasma glucose results greater than or equal to 200 mg/dL meet the criteria for diagnosis of diabetes. Reference: Standards of Medical Care in Diabetes 2016, [place] [employer]. Diabetes Care. 2016.39(Suppl 1). LAB BUN 7-21 mg/dL BUN 11 LAB CRET 0.58-0.96 mg/dL Creatinine 0.72 LAB NA 136-144 mmol/L Sodium 139 LAB K 3.7-5.1 mmol/L Potassium 4.1 LAB CL 97-105 mmol/L Chloride 103 LAB CO2 22-30 mmol/L CO2 26 LAB AGAP 9-18 mmol/L Anion Gap 10 LAB ALT 7-38 U/L ALT 17 LAB GFRAA eGFR- Amer. >60 LAB GFRNAA . eGFR-All Other Races >60 Result Comment: eGFR (Estimated GFR) Units of measure: mL/min/1.73 meters squared eGFR is derived from the reexpressed MDRD Study equation using the following parameters: serum creatinine, age, gender and race. The creatinine assay has been calibrated to be traceable to IDMS. An eGFR <60 mL/min/1.73m2 for >3 months is consistent with chronic kidney disease. Refer to KDOQI guidelines for clinical interpretation. In patients with unstable renal function, e.g. those with acute kidney injury, the eGFR may not accurately reflect actual GFR. Performed By: #### CMP, CBCDIF, WSR #### [facility] [address] [place], [place] [address] CBC AND DIFFERENTIAL Collected: 06/23/2017 Status: F Source: [place] 4:30 PM [facility] REPOSITORY TYPE CODE TESTS RESULT OUT OF REFERENCE UNITS RANGE LAB WBC 3.70-11.00 k/uL WBC 7.72 LAB RBC 3.90-5.20 m/uL RBC 4.22 LAB HGB 11.5-15.5 g/dL Hemoglobin 13.3 LAB HCT 36.0-46.0 % Hematocrit 40.5 LAB MCV 80.0-100.0 fL MCV 96.0 LAB MCH 26.0-34.0 pG MCH 31.5 LAB MCHC 30.5-36.0 g/dL MCHC 32.8 LAB RDWCV 11.5-15.0 % RDW-CV 11.9 LAB PLTCT 150-400 k/uL Platelet Count 325 LAB MPV 9.0-12.7 fL MPV 9.8 LAB ANEUT % Neut% 60.1 LAB AANEUT 1.45-7.50 k/uL Abs Neut 4.62 LAB ALYMP % Lymph% 31.1 LAB AALYMP 1.00-4.00 k/uL Abs Lymph 2.40 LAB AMONO % [place]% 6.0 LAB AAMONO <0.87 k/uL Abs [place] 0.46 LAB AEOS % Eosin% 1.9 LAB AAEOS <0.46 k/uL Abs Eosin 0.15 LAB ABASO % Baso% 0.9 LAB AABASO <0.11 k/uL Abs Baso 0.07 LAB AUNRBC 0 /100 WBC NRBCs 0.0 LAB ABNRBC <0.01 k/uL Absolute nRBC <0.01 LAB DTYP DTYPE Auto Diff Performed By: #### CMP, CBCDIF, WSR #### [facility] [employer] [address] [place], [place] [address] SED RATE WESTERGREN Collected: 06/23/2017 Status: F Source: [place] 4:30 PM [facility] REPOSITORY TYPE CODE TESTS RESULT OUT OF REFERENCE UNITS RANGE LAB WSR 0-20 mm/hr Sed Rate Westergren 5 Performed By: #### CMP, CBCDIF, WSR #### [facility] [employer] [address] [place] [address] HCG, QUANTITATIVE BL Collected: 06/23/2017 Status: F Source: [place] 4:30 PM [facility] REPOSITORY TYPE CODE TESTS RESULT OUT OF REFERENCE UNITS RANGE LAB HCGQT <5.0 mU/mL HCG, High Quantitative Bl 84.0 Result Comment: QUANTITATIVE HCG NORMAL RANGES Weeks of Gestation (Weeks Since LMP) 3 Weeks (5.8-71.2 mIU/mL) 4 Weeks (9.5-750 mIU/mL) 5 Weeks (217-7138 mIU/mL) 6 Weeks (158-84863 mIU/mL) 7 Weeks (3697-775250 mIU/mL) 8 Weeks (71515-031236 mIU/mL) 9 Weeks (65626-222475 mIU/mL) 10 Weeks (32222-601282 mIU/mL) 12 Weeks (99847-285067 mIU/mL) Referenced to 4th IS of [facility] Performed By: #### HCGQT #### [facility] [address] [place] [id number] URINALYSIS Collected: 06/23/2017 Status: F Source: [place] 4:30 PM [facility] REPOS[facility] TYPE CODE TESTS RESULT OUT OF REFERENCE UNITS RANGE LAB UCOL Yellow Color Yellow LAB [facility] Clear Clarity Clear LAB UGLUC Negative mg/dL Glucose, Urine Negative LAB UBIL Negative Bilirubin, Urine Negative LAB UKET Negative Ketones, Urine Negative LAB USPG 1.005-1.030 Specific [place], Ur 1.008 LAB UHGB Negative Hemoglobin/Blood, Negative Ur LAB UPH 4.5-8.0 pH 8.0 LAB UPROT Negative mg/dL Protein, Urine Negative LAB UUROB Normal Urobilinogen Normal LAB UNITR Negative Nitrites Negative LAB ULKEST Negative Leukest Negative LAB UCOM Comments SEE COMMENT Result Comment: Microscopic not warranted LAB UMCOM Urine SEE Kapil Comment COMMENT Result Comment: N/A Performed By: #### UA #### [facility] [employer] [address] [place] [id number] ALLERGIES ALLERGIES DATE TYPE / CODE NAME / CODE REACTION SEVERITY SOURCE 04/05/2018 Drug Sulfa (Sulfonamide Rash Unknown [place] Allergy/416 Antibiotics)/[id number] [facility] [id number]([facility] 0491(RXNORM) [facility] ED CT) Repository 04/05/2018 Drug itraconazole/[id number] Swelling Unknown [place] Allergy/416 3915(RXNORM) [facility] 394882([facility] ED CT) Repository 04/05/2018 Drug levofloxacin/[id number] Swelling Unknown [place] Allergy/416 6299(RXNORM) [facility] 109112([facility] ED CT) Repository 09/28/2005 Drug SULFA (SULFONAMIDE RASH [facility] Class/58236 ANTIBIOTICS) [facility] [place] 1003(SNOMED Repository CT) 12/03/2004 DRUG/710170 CAT HAIR EXTRACT [facility] 003(SNOMED [place]) Repository 12/03/2004 Environ/420 DUST MITES [facility] 262573(SNOM [place] ED CT) Repository 12/03/2004 DRUG ITRACONAZOLE ITCHING [facility] INGREDI/419 [place] 997469(SNOM Repository ED CT) 12/03/2004 DRUG LEVOFLOXACIN RASH [facility]EDI/419 [place] 376832(SNOM Repository ED CT) 12/03/2004 DRUG MOLD [facility]EDI/419 [place] 709560(SNOM Repository ED CT) ENCOUNTERS ENCOUNTERS ADMIT/DISCHARGE ACCOUNT ADMITTING ENCOUNTER LOCATION SOURCE NUMBER CLASS 05/01/2018/05/02/19 [id number] Ambulatory [address] [place] Repository 04/10/2018/04/11/20 [id number] Ambulatory [address] [place] Repository 04/05/2018/04/08/20 [id number] Nirmal Lopez Inpatient [place] 18 Encounter [facility] ing:WPRoom: Repository [id number]: 1 04/02/2018/04/02/20 [id number] Ambulatory [address] [place] Repository 04/02/2018/04/03/20 [id number] Ambulatory [address] [place] Repository 03/26/2018/03/27/20 [id number] Ambulatory [address] [place] Repository 03/19/2018/03/20/20 [id number] Ambulatory [address] [place] Repository 03/12/2018/03/13/20 [id number] Ambulatory [address] [place] Repository 02/28/2018/03/01/20 [id number] [facility] [place] Repository 02/26/2018/02/29/20 [id number] Amb[facility] [place] Rep[place] 02/22/2018/02/23/20 [id number] Amb[facility] [place] Repository 02/22/2018/02/23/20 [id number] Amb[facility] [place] Rep[place] 02/19/2018/02/21/20 [id number] Ambulatory [place] [facility] [place] Repository 02/12/2018/02/13/20 [id number] Ambulatory [facility] [place] Repository 02/12/2018/02/14/20 [id number] Ambulatory [place] [facility] [place] Repository 02/01/2018/02/02/20 [id number] Ambulatory [facility] [place] Repository 01/29/2018/01/31/20 [id number] Amb[facility] [place] Repository 01/15/2018/01/16/20 [id number] Amb[facility] [place] Repository 01/15/2018/03/13/20 [id number] Amb[facility] [place] Repository 12/26/2017/01/31/20 [id number] Ambulatory [facility] [place] Repository 11/27/2017/11/28/19 [id number] Ambulatory [facility] [place] Repository 11/27/2017/11/29/19 [id number] Ambulatory [facility] [place] Repository 11/27/2017/11/29/19 [id number] Ambulatory [facility] [place] Repository 10/31/2017/11/01/19 [id number] Ambulatory [facility] [place] Repository 10/23/2017/10/24/19 [id number] Ambulatory [facility] [place] Repository 10/23/2017/10/24/19 [id number] Ambulatory [facility] [place] Repository 09/25/2017/09/26/19 [id number] Ambulatory [facility] [place] Repository 09/25/2017/09/26/19 [id number] Ambulatory [facility] [place] Repository 09/25/2017/09/29/19 [id number] Ambulatory [facility] [place] Repository 08/23/2017/08/24/19 [id number] Ambulatory [facility] [place] Repository 08/23/2017/08/29/19 [id number] Ambulatory [facility] [place] Repository 08/17/2017/08/22/19 [id number] Ambulatory [facility] [place] Repository 08/14/2017/08/17/19 [id number] Ambulatory [facility] [place] Repository 08/08/2017/08/09/19 [id number] Ambulatory [facility] [place] Repository 07/29/2017 [id number] Ambulatory [facility] [place] Repository 07/26/2017 [id number] Ambulatory [facility] [place] Repository 07/26/2017 [id number] Ambulatory [facility] [place] Repository 06/29/2017 [id number] Ambulatory [facility] [place] Repository 06/26/2017/03/05 [id number] Ambulatory [address] Repository 06/23/2017 [id number] Ambulatory [facility] Repository PAYERS PAYERS ENCOUNTER GUARANTOR PAYER SUBSCRIBER SOURCE 04/05/2018 DENIS Chavarria Primary JAMEE [id number] Insurance:MEDICAL THOMPSONDOB: [facility] [id number] Number: Repository [id number]: [phone] [id number] [phone] () Date:1971-00-30DQ [address] [place] [id number]: 04/05/2018 Secondary NOT GIVENCÉSAR Castlilo Insurance:SELF PAY [facility] Number: Effective Repository Date:2018-02-12
== END 2018-04-08 12:30 | disposition home or self-care (01) | DRG 806 ==
PROVIDERS: Admitting Provider Obstetrics & Gynecology; Family Provider Student in an Organized Health Care Education/Training Program; PCP Student in an Organized Health Care Education/Training Program; Referring Provider Obstetrics & Gynecology; Visit Provider Obstetrics & Gynecology
DX: O99.52 Diseases of the respiratory system complicating childbirth (principal); M30.1 Polyarteritis with lung involvement [Churg-Strauss]; Z37.0 Single live birth; Z3A.39 39 weeks gestation of pregnancy; O69.82X0 Labor and delivery complicated by other cord entanglement, without compression, not applicable or unspecified; O70.1 Second degree perineal laceration during delivery
CPT/HCPCS: 59025; 59050; 80053; 85027; 85384; 85610; 85730; 86850; 86900; 86920; 99218; J7120; A4216; G0378; J2405

== ENCOUNTER 2022-02-23 07:04 | Inpatient (IN) | payer BC, SELFPAY ==
[2022-02-23] VITALS (22 sets, daily range): BP systolic 104–137; BP diastolic 60–98; PULSE 68–95; RESP 15; TEMP 35.9–37.2; O2SAT 97–100; BMI 28.1
[2022-02-23] MEDS: Lactated Ringers 1,000 ML 50 ML IV (07:55)
[2022-02-23 08:17] LABS: Absolute Lymphocyte Count 1.79 X10^3/uL (0.83-4.51); Absolute Neutrophil Count 6.9 X10^3/uL (2.0-7.7); Basophil# 0.08 X10^3/uL; Basophil% 0.8 % (0-1); Eosinophil# 0.48 X10^3/uL; Eosinophils% 4.9 % (0-5); Hemoglobin 11.9 g/dL (12.0-15.0); Lymphocyte # 1.79 X10^3/ul (0.83-4.51); Lymphocyte % 18.3 % (19-41); Mean Corpuscular Hgb 32.6 pg (27.0-32.0); Mean Corpuscular Volume 93.2 fL (81-99); Mean Platelet Vol. 10.6 fl (6.2-12.0); Monocyte# 0.54 X10^3/uL; Monocyte% 5.5 % (0-10); NRBC Flagged by Analyzer 0 % (0-5); Neutrophil # 6.85 X10^3/uL (2.7-7.7); Neutrophil % 69.9 % (47-70); Platelet Count 258 K/mm3 (150-450); RBC Distribution Width CV 12.7 % (11.6-14.6); RBC Distribution Width SD 43.2 fl (35.1-43.9); Red Blood Count 3.65 M/mm3 (4.2-5.4); White Blood Count 9.8 K/mm3 (4.4-11.0)
[2022-02-23] MEDS: 0.9% Normal Saline Single 100 ML IV.SOLN. INTRA-UTER (08:20)
--- NOTE | 2022-02-23 08:33 | HP.PCM.OB_ITS ---
HPI - General General Date of Admission: 02/23/22 HPI Narrative DENIS COLEMAN, is a 36 F at 38.6 weeks gestation who presents for scheduled induction of labor. complicated by Churg-Gurdeep syndrome, AMA, and IUGR. Maternal Data Information LILI Calculator Estimated Delivery Date Method Current WG Current Estimate 03/03/22 Manual 38w 6d PFSH PFSH Medical History (Updated 02/23/22 @ 08:38 by Chuyita Wilks CNM) Asthma Churg-Gurdeep syndrome Home Medications albuterol sulfate 90 mcg/actuation aerosol inhaler (Ventolin HFA) 1 - 2 puff inhalation Q4H PRN PRN Asthma 04/05/18 [History Last Taken 03/22/18] cholecalciferol (vitamin D3) 25 mcg (1,000 unit) tablet (Vitamin D3) 1,000 unit PO DAILY vitamin 04/05/18 [History Last Taken 02/23/22 06:00] omega 3-dha 60 mg-epa 90 mg-fish oil 500 mg capsule, delayed release (Fish Oil) 500 mg PO DAILY supplement 04/05/18 [History Last Taken 02/23/22 06:00] vits,calcium no.78-iron fumarate-folic acid 29 mg-1 mg tablet (Prenatabs FA) 1 tab PO DAILY 04/05/18 [History Last Taken 02/23/22 06:00] acetaminophen 500 mg tablet 500 mg PO Q4H PRN PRN Pain ##30 04/06/18 [Rx Last Taken Unknown] artificial tears(shqgidi-htcdhkum-wbcahlm) 0.1 %-0.3 %-0.2 % eye drops (GenTeal Tears Moderate) 2 drp Q1H PRN PRN DRY EYES 04/06/18 [Rx Last Taken Unknown] budesonide-formoterol HFA 160 mcg-4.5 mcg/actuation aerosol inhaler (Symbicort) 2 puff inhalation BID asthma 02/23/22 [History Last Taken 02/23/22 06:00] bupropion HCl 300 mg 24 hr tablet, extended release 300 mg PO BREAKFAST depression 02/23/22 [History Last Taken 02/23/22 06:00] fluticasone propionate 50 mcg/actuation nasal spray,suspension (Flonase Allergy Relief) 1 spray intranasal BID allergies 02/23/22 [History Last Taken 02/23/22 06:00] gabapentin 300 mg tablet 300 mg PO TID anxiety 02/23/22 [History Last Taken 02/23/22 06:00] Allergy/AdvReac Type Severity Reaction Status Date / Time itraconazole Allergy Swelling Verified 04/05/18 18:24 levofloxacin Allergy Swelling Verified 04/05/18 18:25 Sulfa (Sulfonamide Allergy Rash Verified 04/05/18 18:25 Antibiotics) Surgical History (Updated 04/05/18 @ 22:[address] Teetee Edmonds MD) H/O sinus surgery History of endoscopy Social History Smoking Status: Never smoker History Elective abortions Hx Para 0 Spontaneous abortions Hx # Term Pregnancies Ectopic pregnancies Hx # Pregnancies Multiple births # of living children Visit Details OB Flowsheet Initial Weight: Not Recorded Date -?-?-?-?-?-?-?-?-?-?-?-?- EGA Weight BP Urine Prot -?-?-?-?-?-?-?-?-?-?-?-?- Glucose FHR FuHt Pres Dilation -?-?-?-?-?-?-?-?-?-?-?-?- Effaced St Visit Note 02/23/22 -?-?-?-?-?-?-?-?-?-?-?-?- 38w 6d 169 lb 113/76 -?-?-?-?-?-?-?-?-?-?-?-?- -?-?-?-?-?-?-?-?-?-?-?-?- ROS Eyes Eyes: Denies blurry vision, change in vision or spots in vision ENT HEENT: Denies dizziness or headache(s) Cardiovascular Cardiovascular: Denies abdominal pain, chest pain or dyspnea Respiratory/Chest Respiratory/Chest: Denies cough, dyspnea, shortness of breath at rest or shortness of breath with exertion Gastrointestinal Gastrointestinal: Denies abdominal pain, diarrhea or vomiting Genitourinary Genitourinary: Denies change in urinary stream, difficulty urinating or dysuria Musculoskeletal Musculoskeletal: Reports none Integumentary Integumentary: Denies rash Neurologic Neurologic: Denies dizziness, headache(s), memory loss or weakness Psychiatric Psychiatric: Reports none Vital Signs Vital Signs Vital Signs: 02/23/22 08:23 02/23/22 08:23 02/23/22 08:23 Temperature Temperature Source Pulse Rate 81 Blood Pressure 113/76 BP Systolic 113 BP Diastolic 76 Pulse Ox 98 02/23/22 08:24 02/23/22 08:24 Temperature 97.3 F L Temperature Source Temporal Pulse Rate Blood Pressure BP Systolic BP Diastolic Pulse Ox Weight Weight: 169 lb Body Mass Index (BMI) 28.1 Physical Exam Const alert, oriented x3 and no apparent distress General Appearance: cooperative Orientation / Consciousness: awake Exam Limitations: no limitations HEENT normocephalic Head and Scalp: normal to inspection Eyes General Eye: normal appearance of both eyes Neck full ROM and no lymphadenopathy Lymph Lymphatic: no lymphadenopathy noted Chest inspection of chest normal Resp normal respiratory effort, normal air movement and clear to auscultation bilaterally Effort and Inspection: able to speak in complete sentences and symmetric chest movement Cardio regular rate and regular rhythm GI normal to inspection, nondistended, normoactive bowel sounds Manual OB Exam: presentation cephalic Back/Spine normal ROM Extremity full ROM and no calf tenderness Skin no rashes or lesions noted General Skin Exam: no breakdown Neuro oriented x3 and CN's II-XII intact bilaterally Psych mental status grossly normal and thought process normal Labs Labs Labs: Blood Type O POSITIVE Antibody Screen NEGATIVE Hct 34.0 % (37-47) L Hgb 11.9 g/dL (12.0-15.0) L Rhogam given: No Assessment & Plan (1) 38 weeks gestation of : (2) Churg-Gurdeep syndrome: (3) AMA (advanced maternal age) multigravida 35+: (4) IUGR, : PLAN: Plan Admit to labor and delivery Routine labs Start IV and run fluids per orders CE- //-2 Kennedy bulb placed without difficulty and balloon inflated with 30 [address] GBS negative Dr. Blandon notified of admission and will be assuming care of patient
[2022-02-23] MEDS: Oxytocin 15 Units/NS 250ml 15 UNITS/250 ML IV.SOLN 2 UNITS IV (12:46)
[2022-02-23] MEDS: Oxytocin 15 Units/NS 250ml 15 UNITS/250 ML IV.SOLN 334 UNITS IV (15:58)
--- NOTE | 2022-02-23 16:10 | EX.PCM.OBRPT ---
Maternal Data Information LILI Calculator Estimated Delivery Date Method Current WG Current Estimate 03/03/22 Manual 38w 6d Vaginal Delivery Operative Information Date of Procedure: 02/23/22 Pre-Operative Diagnosis: IUGR, 38.6 weeks gestation, Meconium fluid Post-Operative Diagnosis: same, live female Surgery / Procedure Performed: Spontaneous Vaginal Delivery Type of Anesthesia: None Special Medications: nitrous Estimated Blood Loss: 250 Time of Delivery: 15:55 Findings Description of Procedure: Patient upon my arrival is 9 and half centimeters bearing-down with contractions. She quickly progressed to fully dilated. With good maternal pushing efforts the infant's head was delivered without complication followed by the anterior shoulder and the rest the infant's body. The infant was vigorous at time of delivery and was placed on the mother's chest. Founding Partner and nursery staff were present for delivery. Delayed cord clamping was performed. Mouth and nose were suctioned per nursery staff when baby was on mother's chest. Pitocin was then started and the placenta delivered spontaneously without complication. There was a first-degree perineal and first-degree vaginal laceration pressure was held and hemostasis was appreciated. No repair was performed. Presentation: Vertex Amniotic Membrane Rupture Type: Artificial Amniotic Fluid Description: Thick meconium Placental Delivery Description: Spontaneous Placenta Disposition: [facility] Specimen(s) Removed: Placenta Cord Vessel Description: 3 Vessels Cord Entanglement: None Nuchal Cord Compression: Without compression Infant A Gender: Female (1 minute): 8 (5 minute): 9 Delayed Cord Clamping: Yes Post Vaginal Delivery Medications Given After Delivery: IV Pitocin Episiotomy Description: None Laceration: Perineal Extension/lac, Vaginal Extension/lac and 1st degree (No repair performed. Excellent hemostasis.) Complication Complications: None
--- NOTE | 2022-02-23 16:20 | PLAC_PTH ---
PATIENT: DENIS COLEMAN LOC: [facility] U#:[id number] AGE/SX: 36/F ROOM: [facility] RE02/23/[address]: Dr. Mayra Gay, MDDOB: 1985 BED: 1 DIS: 02/25/2022 SPEC #: [id number] RECD: 02/23/22 16:34 STATUS: FREDA EMRE #: [id number] FRANCISCO: 02/23/22 16:[address]: Mayra Gay DEPT: SURGICAL PATHOLOGY RECD BY: Abby Watts ENTERED: 02/24/22 08:50 SP TYPE: PLACENTA OTHR DR: Dr. Ash Garrison, DO Tissues: Placenta, NOS Procedures: Surgery Specimen Level V HEADER OPERATION: Vaginal delivery PRE-OP DIAGNOSIS: IUGR TISSUE SUBMITTED: Placenta MICROSCOPIC DIAGNOSIS Pablo placenta (560 gm): Umbilical cord ? trivascular with no inflammation. Placental membranes ? acute deciduitis. Placental disc ? mildly increased intraparenchymal fibrin plaques and Shi-Domenic change. AM:chriss 02/25/2022 MICROSCOPIC DESCRIPTION Slides are reviewed. GROSS DESCRIPTION SPECIMEN: PLACENTA / CLINICAL INFORMATION: A. Weight: 2.52 kg B. Gestational Age: 38 weeks C. Sex: Female PLACENTAL WEIGHT (POST FIXATION): 560 gm PLACENTAL DIMENSIONS: 19.5 x 19 x 3 cm PLACENTAL SHAPE: Usual ovoid PLACENTAL WEIGHT FOR GESTATIONAL AGE: Over 99th percentile MEMBRANES - Present A. Insertion: Marginal B. Site of rupture from edge: At edge of placental disc C. Color of membrane: Del Cid-odom D. Abnormalities: None UMBILICAL CORD - Present A. Color: Del Cid-odom B. Insertion: Near central C. Length: 34 cm D. Diameter: 1 cm E. Number of vessels: Three F. Abnormalities: None PLACENTAL DISC - Present A. Color of surface: Del Cid-odom B. surface abnormalities: None C. Maternal cotyledons: Intact with minimal tears D. Attached retro placental clot: No clot E. Cut surface: Dark red and spongy F. Lesions: None G. Separate clot: 5 x 5 x 1 cm SECTIONS SUBMITTED: 1. Umbilical cord ( end notched) 2. Umbilical cord, placental end 3. Membrane roll 4. Placental disc, and maternal surfaces 5. Placental disc, and maternal surfaces 6. Placental disc, and maternal surfaces AM:chriss 02/24/2022 TC:2 CPT: 03357
[2022-02-23] MEDS: Ibuprofen 600 MG Tablet PO (16:52)
[2022-02-23] MEDS: 0.9% Saline Lock 10 ML Syringe IV (17:15)
--- NOTE | 2022-02-23 18:49 | NURSING ---
pt provided information on and the medications that she takes from 2022 medications and mothers milk
[2022-02-23] MEDS: Acetaminophen 500 MG Tablet 1000 MG PO (21:07)
[2022-02-23] MEDS: Fluticasone 0.05% 1 SPRAY NASAL.SRY NASAL (21:09)
[2022-02-23] MEDS: Gabapentin 300 MG Capsule PO (21:19)
[2022-02-24 01:45] VITALS: BP 115/73; PULSE 74; RESP 15; TEMP 36.6; O2SAT 96
[2022-02-24] MEDS: Ibuprofen 600 MG Tablet PO ×4 (01:55→21:37)
[2022-02-24 05:00] VITALS: BP 113/73; PULSE 80; RESP 16; TEMP 36.3; O2SAT 97
[2022-02-24] MEDS: Acetaminophen 500 MG Tablet 1000 MG PO ×2 (05:53→11:57)
[2022-02-24] MEDS: Gabapentin 300 MG Capsule PO ×3 (05:53→21:34)
[2022-02-24] MEDS: Fluticasone 0.05% 1 SPRAY NASAL.SRY NASAL ×2 (08:00→21:33)
[2022-02-24] MEDS: buPROPion (XL) 300 MG TABLET.XL PO (08:00)
[2022-02-24 08:42] VITALS: BP 115/84; PULSE 92; RESP 16; TEMP 36.7; O2SAT 96
--- NOTE | 2022-02-24 13:03 | PCM.PN.OB ---
Subjective Subjective pt doing well. cramping well controlled. no cp, sob, leg pain, dizziness, nausea, vomiting. ambulating and voiding without difficulty. lochia normal Objective Data Objective Data Vital Signs: Vital Signs Temp Pulse Resp BP Pulse Ox O2 Del Method 98.0 F 92 16 115/84 H 96 Room Air 02/24/22 08:42 02/24/22 08:42 02/24/22 08:42 02/24/22 08:42 02/24/22 08:42 02/24/22 08:42 Oxygen Delivery Method Room Air Weight: 169 lb Body Mass Index (BMI) 28.1 Intake & Output: Intake and Output for Last 24 Hours 02/22/22 02/23/22 02/24/22 23:59 23:59 23:59 Intake Total 663.93 / 663.93 Output Total 700 / 700 Balance -36.07 / -36.07 Lab / Micro Data Result Diagrams: 02/23/22 07:55 Micro: Microbiology 02/23/22 07:55 Nasal Secretion SARS-CoV-2 Antigen (Rapid) - Final Physical Exam Const alert and no apparent distress General Appearance: comfortable Assessment & Plan (1) Vaginal delivery: PLAN: PPD#1 s/p . Doing well. Dispo: Desires discharge tomorrow. Routine care.
[2022-02-24 14:00] VITALS: BP 117/67; PULSE 70; RESP 13; TEMP 36.3
--- NOTE | 2022-02-24 15:36 | CASEMGMT ---
Social Work Assessment Labor and Delivery Unit Date of Referral: 02/23/2022 Time of Referral: 18:22 Referred By: Dr. Gay Date of Intervention: 02/24/2022 Time of Intervention: 15:36 Reason for Referral: Mother of baby (MOB) with history of anxiety, depression and depression History obtained from: MOB, Father of baby (FOB), chart, and nursing staff Household composition: MOB, FOB, Jarod Quan, and now this infant, Jorge Quan Patient's parent/guardian status: MOB and FOB have been for 11 years. Both Jarod and Jorge share paternity. was planned. Medical History: MOB with induction of labor at 38 weeks. MOB with history prior to delivery of this . born on 02/23/2022 with apgars of 8 and 9 at 1min and 5min. to follow with Dr. Perez in the community. MOB plans to breastfeed and reports that is going well. Educational Status: MOB denies issues with comprehension or understanding. Financial Status: MOB denies financial concerns. MOB and FOB both work outside of the home. MOB will have 3 months off work. Infant Supplies: MOB reports to have needs supplies in the home include a car seat and crib. Childcare/Caregiver(s): MOB plans to be primary caregiver for until returning to work. Family to assist with childcare after MOB returns to work. Transportation: MOB denies concern with transportation. Programs/Agencies Involved: MOB reports to be active in counseling services through [facility]. MOB denies any other community services. Children Services/Legal Issues: MOB denies history of children services or legal issues. Mental Health History: MOB reports history of anxiety, depression and depression. MOB reports to be taking Gabapentin, Wellbutrin, and Doxylamine to manage mental health. MOB reports to be in counseling for the past few months and this is helping. MOB reports to be doing much better at managing anxiety. This rn social services able to initiate conversation about depression/anxiety signs and symptoms, MOB engaged in conversation. MOB denies any history of suicidal thoughts, plans, intents. Substance Use History: MOB denies substance abuse/use or history of. Maternal and Infant Drug Screens: No drug screens noted. PHQ9: Did not trigger Family/Social Stressors: MOB denies issues/concerns with family or social stressors. Support Systems: MOB reports to have active support in the community from FOB as well as family. Depression and Anxiety/Shaken Baby/Safe Sleeping: This rn social services provided MOB with resources on depression/anxiety as well as shaken baby, safe sleeping, and [facility] general resources. MOB responding appropriately to prompts for shaken baby and safe sleeping. ASSESSMENT: This rn social services met with MOB, FOB, and in room. Introduced self and rn social services role. MOB agreeable to speak with this rn social services and provided verbal permission for this rn social services to speak openly with FOB present. MOB holding during conversation. MOB reports to have connection with . MOB with appropriate affect throughout assessment and engaged. MOB denies concerns on returning to the community. MOB reports to be willing and able to reach out for support if needed in regards to mental health. MOB plans to continue with counseling and medication management. PLAN: to discharge to home with MOB. No other services requested or indicated [facility], [facility]
[2022-02-24 16:12] VITALS: BP 108/70; PULSE 69; RESP 16; TEMP 36.8
[2022-02-24 20:05] VITALS: BP 108/62; PULSE 62; RESP 16; TEMP 36.5; O2SAT 95
[2022-02-25 01:55] VITALS: BP 93/64; PULSE 68; RESP 16; TEMP 36.3; O2SAT 96
[2022-02-25] MEDS: Gabapentin 300 MG Capsule PO (06:22)
[2022-02-25] MEDS: Ibuprofen 600 MG Tablet PO (06:22)
[2022-02-25] MEDS: buPROPion (XL) 300 MG TABLET.XL PO (08:03)
[2022-02-25] MEDS: Fluticasone 0.05% 1 SPRAY NASAL.SRY NASAL (08:03)
[2022-02-25] MEDS: Senna/Docusate Sodium 1 Tablet PO (08:10)
[2022-02-25 08:17] VITALS: BP 104/75; PULSE 80; RESP 12; TEMP 36.8
--- NOTE | 2022-02-25 08:49 | PCM.PN.OB ---
Subjective Subjective pt doing well. lochia normal. having some cramping. she denies fevers, chills, cp, sob, leg pain. ambulating and voiding without difficult. without complaints. Objective Data Objective Data Vital Signs: Vital Signs Temp Pulse Resp BP Pulse Ox O2 Del Method 98.2 F 80 12 104/75 96 Room Air 02/25/22 08:17 02/25/22 08:17 02/25/22 08:17 02/25/22 08:17 02/25/22 01:55 02/25/22 08:17 Oxygen Delivery Method Room Air Weight: 169 lb Body Mass Index (BMI) 28.1 Intake & Output: Intake and Output for Last 24 Hours 02/23/22 02/24/22 02/25/22 23:59 23:59 23:59 Intake Total 663.93 / 663.93 Output Total 700 / 700 Balance -36.07 / -36.07 Lab / Micro Data Result Diagrams: 02/23/22 07:55 Micro: Microbiology 02/23/22 07:55 Nasal Secretion SARS-CoV-2 Antigen (Rapid) - Final Physical Exam Const alert and no apparent distress Constitutional Narrative: holding baby General Appearance: comfortable Assessment & Plan (1) Vaginal delivery: PLAN: PPD#2 s/p . Doing well and meeting milestones for discharge. . Discharge instructions reviewed
--- NOTE | 2022-02-25 08:52 | DCINST_ITS ---
Discharge Instructions Diet Discharge Diet: No restrictions Activity Discharge Activity: May Drive and May Shower May resume sexual activity in: 6 weeks Ice area for (Minutes): 15 Weight Bearing Status: Weight bearing as tolerated Lifting Restrictions: nothing heavier than baby Dressing / Incision Call your doctor if you observe: Fever of 101 or Higher, Coldness, Increased Pain, Numbness or Tingling, Change in Color, Inability to urinate, Inability to have a bowel movement, Using more than 1 pad per hour, Shortness of breath, Dizziness, Fainting spells, Swelling in the ankles, Chest pain, Increased palpitations (irregular heartbeat), Calf discomfort and Uncontrolled pain Follow Up Care When: 1-2 weeks for early visit 6 weeks for visit Test Results: Test results from this visit will be discussed in further detail at your follow- up appointment, if applicable. Discharge Plan Admission Admit Date/Time: 02/23/22 07:04 Primary Reason for Your Visit: delivery Attending Provider: Mayra Gay Primary Care Provider: Ash Garrison Discharge Orders/Prescriptions Prescriptions: Continued albuterol sulfate [Ventolin HFA] 1 INHALER inhaler 1 - 2 puff inhalation Q4H PRN PRN (Reason: Asthma) cholecalciferol (vitamin D3) [Vitamin D3] 1,000 UNIT tablet 1,000 unit PO DAILY Fish Oil 500 MG capsule,delayed release(DR/EC) 500 mg PO DAILY Prenatabs FA 1 TABLET tablet 1 tab PO DAILY GenTeal Tears Moderate 1 DROP bottle 2 drp Each Eye Q1H PRN PRN (Reason: DRY EYES) 0RF acetaminophen 500 MG tablet 500 mg PO Q4H PRN PRN (Reason: Pain) Qty: 30 0RF bupropion HCl 300 MG tablet extended release 24 hr 300 mg PO BREAKFAST budesonide-formoterol [Symbicort] 160-4.5 mcg/actuation Hfa Aerosol Inhaler 2 puff INHALATION BID gabapentin 300 mg Tablet 300 mg PO TID fluticasone propionate [Flonase Allergy Relief] 50 mcg/actuation [place],Suspension 1 spray INTRANASAL BID Rx Instructions: administer into each nostril Referrals / Follow Up: Ash Garrison DO [Primary Care Provider] - Disposition Disposition (needs filled in before D/C Order can be placed): Home, Self Care
[2022-02-25 15:22] LABS: Pathology Specimen OB SEE PATHOLOGY REPORT
== END 2022-02-25 11:30 | disposition home or self-care (01) | DRG 806 ==
PROVIDERS: Advanced Practice Midwife; Admitting Provider Obstetrics & Gynecology; PCP Student in an Organized Health Care Education/Training Program; Visit Provider Obstetrics & Gynecology
DX: O36.5930 Maternal care for other known or suspected poor fetal growth, third trimester, not applicable or unspecified (principal); Z37.0 Single live birth; M30.1 Polyarteritis with lung involvement [Churg-Strauss]; O99.892 Other specified diseases and conditions complicating childbirth; O77.0 Labor and delivery complicated by meconium in amniotic fluid; O70.0 First degree perineal laceration during delivery; Z3A.38 38 weeks gestation of pregnancy
CPT/HCPCS: 59025; 59050; 85025; 86850; 86900; 86901; 87426; 88307; 99218; J7120; A4216; G0378